=== PATIENT | female | born 1955 | race Caucasian/White ===

== ENCOUNTER 2018-07-31 07:51 | Day surgery (SDC) | payer BC ==
[2018-07-27 15:46] LABS: Absolute Lymphocytes (CBC) 2.1 K/uL (0.7-4.9); Absolute Monocytes 0.5 K/uL (0.1-1.3); Absolute Neutrophil 3.5 K/uL (1.8-8.0); Basophils % 0.5 % (0-1.3); Hematocrit 36.6 % (36.0-45.0); Lymphocytes % 33.4 % (15.3-44.8); MPV 8.6 fL (7.6-11.3); Monocytes % 8.7 % (3.3-12.3); RBC Red Blood Cell Count 4.27 M/uL (3.86-4.86)
[2018-07-27 15:55] LABS: Potassium 3.6 mmol/L (3.5-5.1)
[2018-07-27 15:56] LABS: ALT/SGPT 29 U/L (12-78); AST/SGOT 18 U/L (15-37); Albumin 3.6 g/dL (3.4-5.0); Alkaline Phosphatase 87 U/L (45-117); Amylase Level 93 U/L (25-115); Bilirubin Direct < 0.1 mg/dL (0-0.2); Bilirubin Total 0.3 mg/dL (0.2-1.0); Lipase 244 U/L (73-393); Protein, Total 7.8 g/dL (6.4-8.2)
--- NOTE | 2018-07-27 17:32 | RAD REPORT ---
EXAM DESCRIPTION: RAD - Chest Pa And Lat (2 Views) - 07/27/2018 3:38 pm CLINICAL HISTORY: preop Chest pain. COMPARISON: Chest Pa And Lat (2 Views) dated 10/01/2016; CHEST SINGLE VIEW dated 06/25/2014 FINDINGS: The lungs are clear. The heart is normal in size. No displaced fractures. IMPRESSION: No acute or concerning finding suspected.
--- OUTSIDE RECORDS SUMMARY | 2018-07-31 07:59 | XMS REPORT ---
:1955 [facility] Address [address] [place] [address] Dr. Pedroza [address] [place] [id number] Care Team Providers Name Role Phone Unavailable Unavailable Unavailable Problems This patient has no known problems. Allergies, Adverse Reactions, Alerts This patient has no known allergies or adverse reactions. Medications This patient has no known medications. Encounters Start End Encounter Admission Attending Care Care Encounter Date/Time Date/Time Type Type Clinicians Facility Department ID 2018-06-05 2018-06-05 Outpatient [facility] [id number] 15:37:00 15:37:00
--- OUTSIDE RECORDS SUMMARY | 2018-07-31 07:59 | XMS REPORT | Clinical Summary ---
:1955 Author Organization [facility] Address [address] [place] [address] Care Team Providers Name Role Phone Leo Lovelace MD Primary Care Provider Allergies Active Allergy Reactions Severity Noted Date Comments Amoxicillin Rash Low 09/29/2015 Moxifloxacin Rash Low 09/29/2015 Clarithromycin Rash Low 09/29/2015 Codeine Other (See Comments) 01/20/2016 Headaches Medications Medication Sig Dispensed Refills Start Date End Date Status VYVANSE 30 mg capsule Take by mouth 0 09/18/2015 Active daily. metolazone 1 ORAL EVERY 0 09/04/2015 Active (ZAROXOLYN) 5 MG DAY tablet propranolol (INDERAL) Take 20 mg by 3 07/30/2015 Active 20 MG tablet mouth once daily. venlafaxine XR Take by mouth 3 08/02/2015 Active (EFFEXOR-XR) 150 MG once daily. 24 hr capsule furosemide (LASIX) 40 Take 40 mg by 0 Active MG tablet mouth daily. UNABLE TO FIND Take 750 mg 0 Active by mouth daily. circumin 750 mg daily tuhtp-utnah-0-dha-epa Take 300 mg 0 Active -lipids (KRILL OIL) by mouth 739-15-78-50 mg daily. capsule cholecalciferol, Take 1,000 0 Active vitamin D3, (VITAMIN Units by D3) 1,000 unit mouth daily. capsule jkeqxmljvzv-L6-Ovrtub Take 1 tablet 0 Active kisha serr (OSTEO by mouth BI-FLEX, 5-LOXIN,) daily. 1,500-400-100 mg-unit-mg tablet aspirin (ECOTRIN) 81 Take 81 mg by 0 Active MG enteric coated mouth daily. tablet potassium chloride 20 TAKE 1 2 01/05/2016 Active mEq tablet extended TABLETS (40 release MEQ) BY MOUTH DAILY levothyroxine 1 TABLET ON 1 09/17/2016 Active (SYNTHROID, LEVOXYL) AN EMPTY 50 mcg tablet STOMACH IN THE MORNING ONCE A DAY ORALLY 3 DAYS methscopolamine Take 5 mg by 0 07/01/2016 Active (PAMINE FORTE) 5 MG mouth. Twice tablet a week CETIRIZINE HCL Take by mouth 0 Active (ZYRTEC ORAL) daily. methotrexate 2.5 MG TAKE 8 104 tablet 1 10/19/2017 Active tablet TABLETS BY 9 MOUTH A WEEK simvastatin (ZOCOR) Take 10 mg by 0 12/08/2017 Active 10 MG tablet mouth daily. ranitidine (ZANTAC) Take 150 mg 0 Active 150 MG tablet by mouth 2 (two) times a day. methotrexate 2.5 MG Take 8 pills 104 tablet 3 03/26/2016 Discontinued tablet a week 8 methotrexate 2.5 MG Take by mouth 0 Discontinued tablet once a week. 8 3 tablets weekly Active Problems Problem Noted Date Encounter for long-term (current) use of high-risk medication 01/20/2016 Elevated transaminase level 01/20/2016 Rheumatoid arthritis of multiple sites with negative rheumatoid factor 2015 Last Assessment & Plan: Although the level of activity appears quite low I can still detect some articular swelling particularly of the long PIP on the left hand and the index MCPs bilaterally. 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 If she does well at work over the first month or 6 weeks I think reducing the dose t o 5 mg weekly may be reasonable. She understands that she may flare. She worries about the methotrexate and its effect on her fatty liver. Laboratories will be obtained today to look for activity of disease and comorbidity of medication. I would like to see her back in 3 months time or when necessary. Hyperlipidemia CARVAJAL (nonalcoholic steatohepatitis) Encounters Date Type Specialty Care Team Description 05/29/2018 Orders Only Rheumatology Krystle Smith MA Rheumatoid arthritis of multiple sites with negative rheumatoid factor (HCC) (Primary Dx); Encounter for long-term (current) use of high-risk medication 01/17/2018 Office Visit Rheumatology Rodney Hernandez MD Rheumatoid arthritis of multiple sites with negative rheumatoid factor (HCC) (Primary Dx); Encounter for long-term (current) use of high-risk medication; Mixed hyperlipidemia; GERD without esophagitis; Vitamin D deficiency 12/19/2017 Telephone Rheumatology Krystle Smith MA 11/10/2017 Orders Only Rheumatology Rodney Hernandez MD Rheumatoid arthritis of multiple sites with negative rheumatoid factor (Primary Dx); Long-term use of high-risk medication 10/18/2017 Refill Rheumatology Rodney Hernandez MD after 07/30/2017 Family History Medical History Relation Name Comments Suicidality Father Hypertension Mother Osteoarthritis Mother No Known Problems Sister No Known Problems Sister Relation Name Status Comments Father Mother Alive Sister Alive Sister Alive Social History Tobacco Use Types Packs/Day Years Used Date Never Smoker Smokeless Tobacco: Never Used Alcohol Use Drinks/Week oz/Week Comments No Sex Assigned at Date Recorded Not on file Job Start Date Occupation Industry Not on file Not on file Not on file Travel History Travel Start Travel End No recent travel history available. Last Filed Vital Signs Vital Sign Reading Time Taken Blood Pressure 143/90 01/17/2018 10:36 AM [employer] Pulse 81 01/17/2018 10:36 AM [employer] Temperature 37.1 C (98.7 F) 01/17/2018 10:36 AM [employer] Respiratory Rate 18 01/17/2018 10:36 AM [employer] Oxygen Saturation 97% 01/17/2018 10:36 AM [employer] Inhaled Oxygen Concentration - - Weight 76.2 kg (168 lb) 01/17/2018 10:36 AM [employer] Height 165.1 cm (5' 5") 01/17/2018 10:36 AM [employer] Body Mass Index 27.96 01/17/2018 10:36 AM [employer] Plan of Treatment Date Type Specialty Care Team Description 09/15/2018 Office Visit Rheumatology Rodney Hernandez MD [address] [address] Health Maintenance Due Date Last Done Comments BREAST CANCER SCREENING 2007 COLON CANCER SCREENING 2007 SHINGLES VACCINES (#1) 2007 INFLUENZA VACCINE 09/28/2018 Procedures Procedure Name Priority Date/Time Associated Comments Diagnosis URINALYSIS, AUTOMATED Routine 05/30/2018 3:38 Encounter for Results for this WITH MICROSCOPY PM CDT long-term (current) procedure are in use of high-risk the results medication section. SEDIMENTATION RATE Routine 05/30/2018 3:38 Rheumatoid Results for this PM CDT arthritis of procedure are in multiple sites with the results negative rheumatoid section. factor (HCC) C-REACTIVE PROTEIN Routine 05/30/2018 3:38 Rheumatoid Results for this PM CDT arthritis of procedure are in multiple sites with the results negative rheumatoid section. factor (HCC) CBC WITH PLATELET AND Routine 05/30/2018 3:38 Encounter for Results for this DIFFERENTIAL PM CDT long-term (current) procedure are in use of high-risk the results medication section. COMPREHENSIVE Routine 05/30/2018 3:38 Encounter for Results for this METABOLIC PANEL PM CDT long-term (current) procedure are in use of high-risk the results medication section. URINALYSIS, AUTOMATED Routine 03/01/2018 12:26 Encounter for Results for this WITH MICROSCOPY PM [employer]OR [employer] long-term (current) procedure are in use of high-risk the results medication section. SEDIMENTATION RATE Routine 03/01/2018 12:26 Rheumatoid Results for this PM [employer] arthritis of procedure are in multiple sites with the results negative rheumatoid section. factor (HCC) C-REACTIVE PROTEIN Routine 03/01/2018 12:26 Rheumatoid Results for this PM [employer] arthritis of procedure are in multiple sites with the results negative rheumatoid section. factor (HCC) CBC WITH PLATELET AND Routine 03/01/2018 12:26 Encounter for Results for this DIFFERENTIAL PM [employer] long-term (current) procedure are in use of high-risk the results medication section. COMPREHENSIVE Routine 03/01/2018 12:26 Encounter for Results for this METABOLIC PANEL PM [employer]OR [employer] long-term (current) procedure are in use of high-risk the results medication section. URINALYSIS, AUTOMATED Routine 11/18/2017 1:57 Rheumatoid Results for this WITH MICROSCOPY PM CDT arthritis of procedure are in multiple sites with the results negative rheumatoid section. factor CBC WITH PLATELET AND Routine 11/18/2017 1:57 Long-term use of Results for this DIFFERENTIAL PM CDT high-risk procedure are in medication the results section. COMPREHENSIVE Routine 11/18/2017 1:57 Long-term use of Results for this METABOLIC PANEL PM CDT high-risk procedure are in medication the results section. C-REACTIVE PROTEIN Routine 11/18/2017 1:57 Long-term use of Results for this PM CDT high-risk procedure are in medication the results section. SEDIMENTATION RATE Routine 11/18/2017 1:57 Long-term use of Results for this PM CDT high-risk procedure are in medication the results section. after 07/30/2017 Results Urinalysis, automated with microscopy (05/30/2018 3:38 PM CDT)Only the most recent of3 resultswithin the time period is included. Color, UA YELLOW YELLOW [facility] [place] Appearance CLEAR CLEAR [facility] [place] Specific gravity, 1.009 1.001 - 1.035 [facility] urine [place] pH, urine 6.5 5.0 - 8.0 [facility] [place] Glucose, urine NEGATIVE NEGATIVE [facility] [place] Bilirubin, UA NEGATIVE NEGATIVE [facility] [place] Ketones, UA NEGATIVE NEGATIVE [facility] [place] Occult blood, urine NEGATIVE NEGATIVE [facility] [place] Protein, UA NEGATIVE NEGATIVE [facility] [place] Nitrite, UA NEGATIVE NEGATIVE [facility] [place] Leukocyte esterase, 1+ (A) NEGATIVE [facility] UA [place] WBC, UA 0-5 < OR=5 /HPF [facility] [place] RBC, UA NONE SEEN < OR=2 /HPF [facility] [place] Squamous epithelial NONE SEEN < OR=5 /HPF [facility] cells, UA [place] Bacteria, UA NONE SEEN NONE SEEN /HPF [facility] [place] Hyaline casts, UA NONE SEEN NONE SEEN /LPF [facility] [place] Specimen Urine Narrative Performed At FASTING:NO [facility] FASTING: NO Resulting Agency Comment Performing Organization Information: Site ID: [facility] Name: [facility] Address: [address] [place] [phone] Director: Cristina Sampson Performing Organization Address [facility] Phone Number [facility] [place] [phone] Sedimentation rate (05/30/2018 3:38 PM CDT)Only the most recent of3 resultswithin the time period is included. Sedimentation rate 28 < OR=30 mm/h [facility] [place] Specimen Blood Narrative Performed At FASTING:NO [facility] FASTING: NO Resulting Agency Comment Performing Organization Information: Site ID: [facility] Name: [facility] Address: [address] [place] [phone] Director: Cristina Sampson Performing Organization Address [facility] Phone Number [facility] [place] [phone] CBC with platelet and differential (05/30/2018 3:38 PM CDT)Only the most recent of3 resultswithin the time period is included. Pathologist [facility] WBC 8.3 3.8 - 10.8 [facility] Thousand/uL [place] RBC 4.22 3.80 - 5.10 [facility] Million/uL [place] HGB 12.6 11.7 - 15.5 [facility] g/dL [place] HCT 36.8 35.0 - 45.0 % [facility] [place] MCV 87.2 80.0 - 100.0 fL [facility] [place] MCH 29.9 27.0 - 33.0 pg [facility] [place] MCHC 34.2 32.0 - 36.0 [facility] g/dL [place] RDW 12.7 11.0 - 15.0 % [facility] [place] Platelet count 210 140 - 400 [facility] Thousand/uL [place] MPV 11.0 7.5 - 12.5 fL [facility] [place] Neutrophils, absolute 5,378 1,500 - 7,800 [facility] cells/uL [place] Lymphocytes, absolute 2,150 850 - 3,900 [facility] cells/uL [place] Monocytes, absolute 639 200 - 950 [facility] cells/uL [place] Eosinophils, absolute 100 15 - 500 [facility] cells/uL [place] Basophils, absolute 33 0 - 200 [facility] cells/uL [place] Neutrophils 64.8 % [facility] [place] Lymphocytes 25.9 % [facility] [place] Monocytes 7.7 % [facility] [place] Eosinophils 1.2 % [facility] [place] Basophils + RC 0.4 % [facility] [place] Specimen Blood Narrative Performed At FASTING:NO [facility] FASTING: NO Resulting Agency Comment Performing Organization Information: Site ID: [facility] Name: [facility] Address: [address] [place] [phone] Director: Cristina Sampson Performing Organization Address City/State/Zipcode Phone Number [facility] [place] [phone] C-reactive protein (05/30/2018 3:38 PM CDT)Only the most recent of3 resultswithin the time period is included. [facility] CRP 5.8 <8.0 mg/L [facility] [place] Specimen Blood Narrative Performed At FASTING:NO [facility] FASTING: NO Resulting Agency Comment Performing Organization Information: Site ID: [facility] Name: [facility] Address: [address] [place] [phone] Director: Cristina Sampson Performing Organization Address City/[facility] Phone Number [facility] [place] [address] [place] [phone] Comprehensive metabolic panel (05/30/2018 3:38 PM CDT)Only the most recent of3 resultswithin the time period is included. Glucose 97 65 - 139 [facility] Comment: mg/dL [place] Non-fasting reference interval BUN, whole blood 19 7 - 25 mg/dL [facility] [place] Creatinine 0.98 0.50 - 0.99 [facility] Comment: mg/dL [place] For patients >49 years of age, the reference limit for Creatinine is approximately 13% higher for people identified as -Citizen Of [place]. EGFR Non-Afr. 62 > OR=60 [facility] Citizen [place] mL/min/1.73m [place] 2 EGFR 72 > OR=60 [facility] Citizen [place] mL/min/1.73m [place] 2 BUN/creatinine NOT APPLICABLE 6 - 22 [facility] ratio (calc) [place] Sodium 139 135 - 146 [facility] mmol/L [place] Potassium 3.5 3.5 - 5.3 [facility] mmol/L [place] Chloride 95 (L) 98 - 110 [facility] mmol/L [place] CO2 34 (H) 20 - 32 [facility] mmol/L [place] Calcium 9.7 8.6 - 10.4 [facility] mg/dL [place] Protein 7.2 6.1 - 8.1 [facility] g/dL [place] Albumin, S 4.1 3.6 - 5.1 [facility] g/dL [place] Globulin, total 3.1 1.9 - 3.7 [facility] g/dL (calc) [place] Albumin/globulin 1.3 1.0 - 2.5 [facility] ratio (calc) [place] Total bilirubin 0.3 0.2 - 1.2 [facility] mg/dL [place] Alkaline 86 33 - 130 U/L [facility] phosphatase [place] AST 24 10 - 35 U/L [facility] [place] ALT 30 (H) 6 - 29 U/L [facility] [place] Specimen Blood Narrative Performed At FASTING:NO [facility] FASTING: NO Resulting Agency Comment Performing Organization Information: Site ID: [facility] Name: [facility] Address: [address] [place] [phone] Director: Cristina Sampson Performing Organization Address City/[facility]/Zipcode Phone Number [facility] [address] [address] after 07/30/2017 Advance Directives Patient has advance care planning documents on file. For more information, please contact:Gamaliel Villegas[address] [place] [address]
[2018-07-31] MEDS ORDERED: PROPOFOL 200 MG/20 ML VIAL IV ONE (08:43)
[2018-07-31] MEDS ORDERED: MIDAZOLAM HCL 2 MG/2 ML INJ ONE (08:43)
[2018-07-31] MEDS ORDERED: ROCURONIUM 50 MG/5 ML VIAL IV ONE (08:43)
[2018-07-31] MEDS ORDERED: LIDOCAINE 1% MPF 5 ML VIAL ONE ×2 (08:43)
[2018-07-31] MEDS ORDERED: FENTANYL CITR 100 MCG/2 ML ONE ×2 (08:43→10:05)
[2018-07-31] MEDS ORDERED: Ringers Lactate 1,000 ML IV ONE (08:54)
[2018-07-31] MEDS ORDERED: CEFOXITIN/SWI 1gm 1 GM/10 ML SYR ONE (09:04)
[2018-07-31] MEDS ORDERED: DEXAMETHASONE 10 MG/ML VIAL ONE (09:50)
[2018-07-31] MEDS ORDERED: ONDANSETRON 4 MG/2 ML VIAL ONE (10:03)
--- NOTE | 2018-07-31 10:04 | P.BOP ---
Preoperative diagnosis: RUQ abd pain, acute cholecytistis, symptomatic cholelithiasis Postoperative diagnosis: same Primary procedure: Laparoscopic cholecystectomy Stain Applicator: RANDAL ESCOBEDO (FISHERMAN HELPER) Estimated blood loss: <10cc Specimen: gb Findings: as above Anesthesia: General Complications: None Transferred to: Recovery Room Condition: Good
[2018-07-31] MEDS ORDERED: GLYCOPYRROLATE 0.2 MG/ML SYR ONE (10:07)
[2018-07-31] MEDS ORDERED: KETOROLAC 30 MG/ML INJ ONE (10:07)
[2018-07-31] MEDS ORDERED: NEOSTIGMINE 1 MG/ML -10 ML VIAL ONE (10:14)
--- NOTE | 2018-07-31 20:39 | OP ---
Date of Procedure: 07/31/2018 Surgeon: Leonardo John MD Business Development Agent: WIL Townsend. Preoperative Diagnoses: Right upper quadrant pain, symptomatic cholelithiasis, acute cholecystitis. Postoperative Diagnoses: Right upper quadrant pain, symptomatic cholelithiasis, acute cholecystitis. Procedure: Laparoscopic cholecystectomy. Estimated Blood Loss: Less than 10 cc. Specimen: Gallbladder. Indications: This is a case of 63-year-old patient comes to us with persistent right upper quadrant pain postprandial diagnosed with acute cholecystitis, tiny stones in the form of sludge and then also persistent right upper quadrant pain. The patient diagnosed, fully explained the benefits, alternat yandy and risks of laparoscopic, possible open cholecystectomy, which include, but not limited to infe ction, bleeding, damage to adjacent structures, anesthesia complication, choledocholithiasis, bile le ak, pancreatitis, CA, and even . She also understands this may not relieve her symptoms. She m ight need more than one surgical intervention. She understood, signed a consent. Description Of Procedure: The patient was brought to the operating room, placed in supine position. Anesthesia was done without complication. Abdominal area was prepped and draped in usual sterile fa shion. Marcaine 0.5% was injected for local anesthetic, followed by sharp incision of the skin in th e infraumbilical region. Incision was carried down to fascia, which was opened under direct vision. Peritoneum was encountered, opened under direct vision. Vicryl #1 placed to saw the fascia. Juan trocar was carefully introduced. Pneumoperitoneum was obtained. I placed 2 more trocars, 5 mm each one of them, in the right upper quadrant under direct visualization. A grasper was placed in the fu ndus of the gallbladder, another grasper in the infundibulum. The gallbladder was retracted in the i nferolateral fashion exposing the triangle of Calot, obtaining critical view of safety. Cystic duct and cystic artery were clearly isolated, free circumferentially and a connection between those and th e gallbladder were clearly identified. I proceeded to ligate those by using at least 3 clips proxima l, 1 clip distal, ligation in middle. Same was done with the cystic artery. No bile leak. No bleed ing. The gallbladder was removed from liver using Bovie cauterizer and removed from abdominal cavity using an EndoCatch through the umbilical incision. The area was inspected once again. No bile leak . No bleeding. Then, we once again incision was closed with 3-0 #1 Vicryl. Irrigated subcu tissue, closed that with 3-0 chromic and skin in a subcuticular fashion with 3-0 chromic. Sponge count and i nstrument counts were correct. The patient tolerated the procedure well. The patient was sent to re covery room in stable condition. DISCHARGE SUMMARY Diagnoses: Acute cholecystitis, symptomatic cholelithiasis, right upper quadrant pain. Procedure: Laparoscopic cholecystectomy. Disposition: Home. Activity: As tolerated. No heavy lifting. Followup: Follow up in my office in 1 week. Call for appointment [phone]. Keep area dry for 48 ho urs, then may shower. Keep Steri-Strips intact. Medications: Include Bactrim DS p.o. b.i.d. and Ultracet q.4 hours p.r.n. pain. MICHAEL/EVARISTO Voice ID: [id number] Report ID: [id number]
== END 2018-07-31 11:35 | disposition home or self-care (01) ==
LOC: OR 07:51
PROVIDERS: ATTEND Surgery
PROC: 0FT44ZZ Resection of Gallbladder, Percutaneous Endoscopic Approach (ICD-10-PCS; principal; 2018-07-31 09:45)
DX: K80.12 Calculus of gallbladder with acute and chronic cholecystitis without obstruction (principal); I10 Essential (primary) hypertension; K21.9 Gastro-esophageal reflux disease without esophagitis; E07.9 Disorder of thyroid, unspecified; Z88.0 Allergy status to penicillin; Z88.3 Allergy status to other anti-infective agents; Z88.6 Allergy status to analgesic agent; Z82.49 Family history of ischemic heart disease and other diseases of the circulatory system
CPT/HCPCS: 36415; 71046; 80048; 80076; 82150; 83690; 85025; 88304; J1100; J2250; J2405; J2704; J2710; J3010

== ENCOUNTER → 2022-01-27 | Day surgery (SDC) | payer OTHER ==
--- NOTE | 2022-01-27 11:27 | RAD REPORT ---
EXAM DESCRIPTION: US - Guided FNA Non Breast - 01/27/2022 10:29 am CLINICAL HISTORY: Thyroid nodule ICD E04.1 COMPARISON: December 29, 2021 ultrasound TECHNIQUE: Risks, benefits and alternatives of procedure explained to the patient and informed conse nt obtained. Skin and subcutaneous tissues anesthetized with lidocaine. Under sonographic guidance, five 25 gauge needle passes were obtained into the dominant nodule within the left lobe of the thyroid gland. Specimens given to pathology. Patient experienced no immediate complication IMPRESSION: Fine-needle aspiration of a dominant nodule within left lobe of thyroid gland
== END ==
LOC: FNA 08:00
PROVIDERS: ATTEND Nurse Practitioner Family
PROC: 0GBG3ZX Excision of Left Thyroid Gland Lobe, Percutaneous Approach, Diagnostic (ICD-10-PCS; principal; 2022-01-27)
DX: E04.1 Nontoxic single thyroid nodule (principal)
CPT/HCPCS: 88162; 88305

== ENCOUNTER 2022-03-13 12:46 | Observation (INO) | payer OTHER ==
--- OUTSIDE RECORDS SUMMARY | 2022-03-13 12:50 | XMS REPORT | Clinical Summary ---
:1955 Author Organization [facility] Address [address] [place] [address] Care Team Providers Name Role Phone Flora Alonzo MD Primary Care Provider Sylvia Serrano MD Primary Care Provider Allergies Active Allergy Reactions Severity Noted Date Comments Codeine GI Intolerance, Other (See 01/20/2016 H urbandamarty Comments) Headaches Penicillins 02/05/2022 Medications Medication Sig Dispensed Refills Start Date End Date Status furosemide (LASIX) 40 Take 1 tablet (40 0 01/14/2022 Active mg tablet mg) by mouth daily. esomeprazole magnesium Take 1 tablet by 0 Active 20 mg TbEC mouth daily. simvastatin (ZOCOR) 10 Take 1 tablet (10 0 2 Active mg tablet mg) by mouth daily. propranolol (INDERAL) Take 1 tablet (20 0 07/30/2015 Active 20 mg tablet mg) by mouth daily. potassium chloride Take 1 tablet (20 0 Active (K-DUR,KLOR-CON M) 20 mEq) by mouth mEq tablet daily. Vyvanse 20 mg capsule Take 1 capsule 0 01/18/2022 Active (20 mg) by mouth daily. Linzess 145 mcg capsule Take 1 capsule 0 01/19/2022 Active (145 mcg) by mouth daily. Active Problems Problem Noted Date Thyroid nodule Encounters Date Type Specialty Care Team Description 02/11/2022 Telephone Endocrinology Naye Don FNP 02/09/2022 Telephone Endocrinology Quan Muhammad RN 02/05/2022 Ancillary Radiology Sylvia Serrano Cancer Procedure MD Theresa 02/05/2022 Hospital Lab Flora Alonzo Thyroid nodu le Encounter MD Dave 02/05/2022 Hospital Lab Sylvia Serrano Thyroid nod ulaki; Encounter MD Theresa Autoimmune hypo thyroidism 02/05/2022 Ancillary Radiology Flora Alonzo Thyroid nodu le Procedure MD Dave 02/05/2022 Office Visit Endocrinology Flora Alonzo Thyroid nod aditi (Primary Dx); MD Dave Autoimmune hypothyroidism Sylvia Serrano MD 02/05/2022 Travel 02/03/2022 NPR Patient Access Sylvia Serrano Services MD Theresa 01/15/2022 Orders Only Endocrinology Flora Alonzo Thyroid nod aditi Acosta MD (Primary Dx) after 03/13/2021 Surgical History Surgery Date Site/Laterality Comments HYSTERECTOMY 02/28/2011 - 02/28/2012 CHOLECYSTECTOMY 02/28/2018 - 02/27/2019 Medical History Medical History Date Comments Hypothyroidism Social History Tobacco Use Types Packs/Day Years Used Date Smoking Tobacco: Never Smokeless Tobacco: Never Tobacco Cessation: Counseling Given: Not Answered Alcohol Use Standard Drinks/Week Comments Never 0 (1 standard drink = 0.6 oz pure alcoho l) Sex Assigned at Date Recorded Female 01/04/2022 5:27 PM [employer] Job Start Date Occupation Industry Not on file Not on file Not on file Obstetrics History Last Filed Vital Signs Vital Sign Reading Time Taken Comments Blood Pressure 125/71 02/05/2022 10:45 AM [employer] Pulse 63 02/05/2022 10:45 AM [employer] Temperature 36.9 C (98.4 F) 02/05/2022 8:22 AM [employer] Respiratory Rate 17 02/05/2022 10:45 AM [employer]ER Oxygen Saturation 92% 02/05/2022 10:15 AM [employer] Inhaled Oxygen Concentration - - Weight 84 kg (185 lb 3 oz) 02/05/2022 8:22 AM [employer] Height 164.6 cm (5' 4.8") 02/05/2022 8:22 AM [employer] Body Mass Index 31 02/05/2022 8:22 AM [employer] Plan of Treatment Date Type Specialty Care Team Description 03/16/2022 Consult Endocrinology Head and Neck Luisito Nobles MD [address] [place], [place] [address] (Wo rk) Health Maintenance Due Date Last Done Comments COVID-19 Vaccination (2 - Booster for Alan series) 07/04/2020 05/09/2020 Procedures Procedure Name Priority Date/Time Associated Diagnosis Comme nts US FINE NEEDLE Routine 02/05/2022 11:45 Thyroid nodule Results for this ASPIRATION AM [employer] procedure are i n the results section. US HEAD NECK SOFT Routine 02/05/2022 11:45 Thyroid nodule Resu lts for this TISSUE AM [employer] procedure are i n the results section. FREE THYROXINE Routine 02/05/2022 11:43 Thyroid nodule Results for this AM [employer] procedure are i n the results section. THYROID STIMULATING Routine 02/05/2022 11:43 Thyroid nodule Re sults for this HORMONE AM [employer] procedure are i n the results section. HEPATITIS C VIRUS Routine 02/05/2022 11:43 Thyroid nodule Resu lts for this ANTIBODY AM [employer] procedure are i n the results section. THYROID PEROXIDASE Routine 02/05/2022 11:43 Thyroid nodu le Results for this ANTIBODY AM [employer] Autoimmune procedure are i n hypothyroidism the results section. CYTOLOGY IMAGE-GUIDED Routine 02/05/2022 10:19 Thyroid nodule Results for this FNA INTERPRETATION AM [employer] procedure are in the results section. OSI US THYROID Routine 12/29/2021 11:52 Cancer Results f or this AM CDT procedure are i n the results section. after 03/13/2021 Results US Fine Needle Aspiration (02/05/2022 11:45 AM [employer]ER) Anatomical Region Laterality Modality Ultrasound Specimen (Source) Anatomical Collection Method Collection Time Re ceived Time Location / / Volume Laterality 02/05/2022 2:43 PM [employer] Impressions 02/05/2022 2:47 PM [employer] Percutaneous ultrasound-guided fine need le aspiration of a 1.6 cm left superior thyroid nodule. Narrative 02/05/2022 2:47 PM [employer] FULL RESULT: Examination: US FINE NEEDLE ASPIRATION, 02/05/2022 11:45 AM Clinical History: Thyroid nodule Indication: Fine-needle aspiration of 1. 6 cm left superior thyroid nodule Comparison: Ultrasound examination thyro id and neck 02/05/2022 Technique: Grayscale and color Doppler ultrasound of the thyroid and neck was performed. Subsequently, an ultrasound-guided FNA was performed, as described in detail below. Findings: The procedure and associated risks, bene fits, and alternatives were explained in detail to the patient, who agreed to proceed and signed an informed consent form. All questions were answered. A timeout was performed verifying the correct proc edure, correct name and correct site. The skin was prepped in the usual sterile fashion with alcohol. Lidocaine 1 percent was administered for local anesthesia . Under direct sonographic guidance, the fine needle aspiration was performed using a 20-gauge needle and 1 pass was made. Preprocedure Diagnosis: 1) left superior thyroid nodule Postprocedure Diagnosis: 1) indeterminat e follicular lesion, favor benign Preliminary cytology results were negati ve for malignancy and final results are pending. Estimated Blood Loss: Negligible. Immediate Complications: There were no i mmediate complications, and the patient was discharged in good condition. Procedure Note Josh Olea MD - 02/05/2022 FULL RESULT: Examination: US FINE NEEDLE ASPIRATION, 02/05/2022 11:45 AM Clinical History: Thyroid nodule Indication: Fine-needle aspiration of 1. 6 cm left superior thyroid nodule Comparison: Ultrasound examination thyro id and neck 02/05/2022 Technique: Grayscale and color Doppler u ltrasound of the thyroid and neck was performed. Subsequently, an ultrasound-guided FNA was performed, as described in detail below. Findings: The procedure and associated risks, bene fits, and alternatives were explained in detail to the patient, who agreed to proceed and signed an informed consent form. All questions were answered. A timeout was performed verifying the correct procedur e, correct name and correct site. The skin was prepped in the usual sterile fashion with alcohol. Lidocaine 1 percent was administered for local anesthesia . Under direct sonographic guidance, the fine needle aspiration was performed using a 20-gauge needle and 1 pass was made. Preprocedure Diagnosis: 1) left superior thyroid nodule Postprocedure Diagnosis: 1) indeterminat e follicular lesion, favor benign Preliminary cytology results were negati ve for malignancy and final results are pending. Estimated Blood Loss: Negligible. Immediate Complications: There were no i mmediate complications, and the patient was discharged in good condition. IMPRESSION: Percutaneous ultrasound-guided fine need le aspiration of a 1.6 cm left superior thyroid nodule. Flora Alonzo MD IMG US ORDERABLES US HEAD NECK SOFT TISSUE (02/05/2022 11:45 AM [employer]) Anatomical Region Laterality Modality Head, Neck Ultrasound Specimen (Source) Anatomical Collection Method Collection Time Re ceived Time Location / / Volume Laterality 02/05/2022 2:37 PM [employer] Impressions 02/05/2022 2:47 PM [employer] 1. Status post FNA of the 1.6 cm left murphy perior thyroid nodule with final cytology interpreted as an indeterminate follicular lesion, favor benign. 2. No adenopathy. Narrative 02/05/2022 2:47 PM [employer] FULL RESULT: Ultrasound soft tissue neck and thyroid, 02/05/2022 Clinical history: Thyroid nodule Indication: Mass, Other:, Thyroid nodule . Comparison: No prior studies available f or comparison Technique: Ultrasound examination soft t issue neck and thyroid Findings: The right lobe measures approx imately 4 x 1.4 x 1.2 cm. No suspicious nodules or calcifications are present. The isthmus measures approximately 1.2 c m in AP diameter. The left lobe measures approximately 4.6 x 1.2 x 1.1 cm. The superior pole is an isoechoic 1.6 x 1.1 x 0.8 cm nodule with minimal vascularity and no calcification. A 0.7 x 0.6 x 0.4 cm avascular nodule without calcification inferior to the le ft lower pole likely represents a benign node. No worrisome delphian or suprasternal no edenilson are present. There is no suspicious anterior jugular territory adenopathy. Procedure Note Josh Olea MD - 02/05/2022 FULL RESULT: Ultrasound soft tissue neck and thyroid, 02/05/2022 Clinical history: Thyroid nodule Indication: Mass, Other:, Thyroid nodule . Comparison: No prior studies available f or comparison Technique: Ultrasound examination soft t issue neck and thyroid Findings: The right lobe measures approx imately 4 x 1.4 x 1.2 cm. No suspicious nodules or calcifications are present. The isthmus measures approximately 1.2 c m in AP diameter. The left lobe measures approximately 4.6 x 1.2 x 1.1 cm. The superior pole is an isoechoic 1.6 x 1.1 x 0.8 cm nodule with minimal vascularity and no calcification. A 0.7 x 0.6 x 0.4 cm avascular nodule without calcification inferior to the left lower pole likely r epresents a benign node. No worrisome delphian or suprasternal no edenilson are present. There is no suspicious anterior jugular territory adenopathy. IMPRESSION: 1. Status post FNA of the 1.6 cm left murphy perior thyroid nodule with final cytology interpreted as an indeterminate follicular lesion, favor benign. 2. No adenopathy. Flora Alonzo MD IMG US ORDERABLES Hepatitis C Virus Ab (02/05/2022 11:43 AM SEED [employer]ER) Patholo gist Method Time Signature HCVAb. Non Reactive Non Reactive [facility] Comment: Antibody detection in the immunocompromi sed and immunosuppressed population may be delayed or absent entirely. Therefore serial testing, correlation with other clinical findings, and supplemental testin g (if available) should be taken into co nsideration when interpreting the results. Specimen Anatomical Collection Method Collection Time Receive d Time (Source) Location / / Volume Laterality Blood 02/05/2022 11:43 02/05/2022 AM [employer]ER 12:31 PM [employer] Flora Alonzo MD LAB BLOOD ORDERABLES Performing Organization Address City/State/ZIP Code Phon e Number [facility] CANCER Unless otherwise noted, [address] all lab tests performed by: Division of Pathology and Laboratory Medicine [facility] Thyroid Peroxidase Ab (02/05/2022 11:43 AM SEED [employer]ER) P athologist Signature TPO AB 3.3 <=8.9 IU/mL [facility] Comment: Due to varying antigen specific ity, affinity and avidity of capture and conjugate antibodies in their epitope re actions, some TPO antibody samples may not dilute linearly when results exceed 750 IU/mL. Specimen Anatomical Collection Method Collection Time Receive d Time (Source) Location / / Volume Laterality Blood 02/05/2022 11:43 02/05/2022 AM [employer]ER 12:22 PM [employer]ER Sylvia Serrano MD LAB BLOOD ORDERABLES Performing Organization Address City/State/ZIP Code Phon e Number [facility] CANCER Unless otherwise noted, [address] all lab tests performed by: Division of Pathology and Laboratory Medicine [address] TSH (02/05/2022 11:43 AM SE[employer]) athologist Signature TSH 1.77 0.27 - 4.20 [facility] mcunit/mL DIAGNOSTIC CENTER Specimen Anatomical Collection Method Collection Time Receive d Time (Source) Location / / Volume Laterality Blood 02/05/2022 11:43 02/05/2022 AM [employer]ER 11:52 AM [employer]ED [employer]ER Flora Alonzo MD LAB BLOOD ORDERABLES Performing Organization Address City/[facility]/ZIP [facility] Phon e Number [facility] DIAGNOSTIC Unless otherwise noted, [address] all lab tests performed by: Division of Pathology and Laboratory Medicine [address] [place] [address] Free T4 (02/05/2022 11:43 AM SEED [employer]) athologist Signature T4 Free 1.18 0.93 - 1.70 [facility] ng/dL DIAGNOSTIC CENTER Specimen Anatomical Collection Method Collection Time Receive d Time (Source) Location / / Volume Laterality Blood 02/05/2022 11:43 02/05/2022 AM SE[employer]ER 11:52 AM [employer]ER Flora Alonzo MD LAB BLOOD ORDERABLES Performing Organization Address City/[facility] Phon e Number [facility] DIAGNOSTIC Unless otherwise noted, [address] all lab tests performed by: Division of Pathology and Laboratory Medicine [address] [place] [address] Cytology Image-Guided FNA Interpretation (02/05/2022 10:19 AM SEED [employer]ER) Component Value Ref Test Analysis Performed Pathologis t Range Method Time At [facility] Gross Specimens procured: 02/05/2022 [facility] BS Description 1 Diff Quik; 4 Pap Stain Slides 1:29 P M 10 ml, slightly cloudy bloody fluid in RPMI [employer] 1 Cytospin Size: 1.6 x 1.1 x 0.8 cm Immediate assessment for specimen adequacy was made x1 by Dr Nathan Dhaliwal. Immediate Adequate 02/05/2022 [facility] Assessment cellularity, 1:29 PM favor benign [employer] Major [facility]/benign 02/05/2022 [facility] Elect ronically Classification 1:29 PM sushant d by Caren Dhaliwal MD on 02/05/2022 at 1:29 PM Diagnosis 02/05/2022 [facility] Electro nically Thyroid, left superior lobe, fine needle aspiration: 1:29 PM signed by Caren Dhaliwal MD on Indeterminate follicular les ion (low cellularity/minimal to no colloid), favor benign 02/05/2022 at 1:29 PM Comment The aspirate 02/05/2022 [facility] obtained is 1:29 PM sparse possessing [employer]ER few follicular epithelial cells without nuclear atypia. It does not display the abundant colloid of a colloid nodule or the increased cellularity of a follicular lesion/neoplasm. Consequently, this sampling does not permit rendering a more definitive diagnosis. Retained/Biomark SR: 6 S 02/05/2022 [facility] er Testing 1:29 PM SEED [employer]ER Informational Some tests 02/05/2022 [facility] Points reported here may 1:29 PM have been [employer]ER developed and performance characteristics determined by [facility]. These tests have not been specifically cleared or approved by the U.S. Food and Drug Administration. Specimen Anatomical Collection Method Collection Time Receive d Time (Source) Location / / Volume Laterality Fine Needle Asp 02/05/2022 10:19 02/06/20 22 (Thyroid, Left AM [employer]ED [employer]ER 10:47 AM SEED TR[employer]ER Lobe) Flora Alonzo MD LAB CYTOLOGY ORDERABLES Performing Organization Address City/State/ZIP Code Phon e Number [facility] [place] [address] [address] [facility] Thyroid (12/29/2021 11:52 AM CDT) Specimen (Source) Anatomical Location Collection Method / Collectio n Time Received Time / Laterality Volume Narrative Systemgenerated, Documentation - 022 11:52 AM SEED [employer]ER Study acquired at another institution. For comparison only. No MD Wright originated interpretation requested or a vailable. Sylvia Serrano MD IMG OUTSIDE IMAGE ORDERABLES after 03/13/2021 Insurance Payer Benefit Plan / Subscriber ID Effective Dates Phone Addre ss Type Group UNITED UNITED [id number] 2021-Presen [address] [facility] [place] [address] Care Teams Policy Writer Sales Relationship Specialty Start Date End Date Flora Alonzo MD PCP - General Endocrinology 01/07/22 01/26/[address] [place] [id number] Sylvia Serrano MD PCP - General Endocrinology 01/27/22 [facility] [place] [address]
--- OUTSIDE RECORDS SUMMARY | 2022-03-13 12:54 | XMS REPORT | Continuity of Care Document ---
:1955 Author Organization [facility] t Address [address] [place] [address] Care Team Providers Name Role Phone [phone] Primary Care Physician Unavailable SYSTEM, PROVIDER NOT IN Attending Clinician Unavailable FELIX ZULETA Attending Clinician Unavailable CELINA NAIR Attending Clinician Unavailable BAYRON FONTANA Attending Clinician Unavailable BAYRON FONTANA Attending Clinician Unavailable ANGELICA VIVEROS III Attending Clinician Unavailable Doctor Unassigned, [place] Attending Clinician Unavailable Naye Boucher Attending Clinician Quan Muhammad RN Attending Clinician Unavailable FLORA ALONZO Attending Clinician Unavailable Flora Alonzo MD Attending Clinician Sylvia Serrano MD Attending Clinician SYLVIA SERRANO Attending Clinician Unavailable MUKUND ISLAS Attending Clinician Unavailable Felxi Zuleta MD Attending Clinician Leo Lovelace Attending Clinician Radha Mckeon RN Attending Clinician Unavailable Only, Ang Db Test Attending Clinician Unavailable Zuleyma Nguyen Attending Clinician ZULEYMA BEAR Attending Clinician Unavailable UNKNOWN, ATTENDING Attending Clinician Unavailable Team, [facility] Attending Clinician UnavailCAMRON Parkinson Attending Clinician Unavailable NICHELLE KOEHLER Attending Clinician Unavailable LYLE BUCIO Attending Clinician Unavailable Ede Bentley Attending Clinician EDE BENTLEY Attending Clinician Unavailable Camron Scott Attending Clinician Ruddy Buck Attending Clinician Ede Bentley Admitting Clinician EDE BENTLEY Admitting Clinician Unavailable Payers Payer Name Policy Type Policy Number Effective Date Expiration Date S lj [place] [id number] 2021 HEALTHCARE PPO 00:00:00 BCBS OF [id number] 2010 Julian o f [employer]ON[employer] OF 00:00:00 [id number] [facility] [id number], [place] [address]SFY/POS Problems Condition Condition Condition Status Onset Resolution Last Treating Co mments Source Name Details Category Date Date Treatment Clinician Date Hiatal Hiatal Disease Active 2021-02 Univers hernia hernia - ity of 00:00: [address] Prediabete Prediabete Disease Active 2021-02 U nivers s s 03-20 ity of 00:00: [address] LEFT KNEE LEFT KNEE Diagnosis Active 2019-08-24 Memoria PAIN PAIN 08-23 11:42:00 l Active 00:00: Mark 08/24/2019 00 [facility] M17.12 - M17.12 - Diagnosis Active 2018-11-02 Memoria LEFT KNEE LEFT KNEE 08-03 11:26:00 l OSTEOARTHR OSTEOARTHR 00:00: Jean Paul BURGOSIS ITIS 00 Active 08/03/2018 [facility] RIGHT KNEE RIGHT Diagnosis Active 2018-06-05 Memoria PAIN KNEE PAIN - 15:49:00 l Active 00:00: Mark 06/05/2018 00 [facility] Elevated Elevated Disease Active 2015-02 Metho di transamina transamina 03-21 st se level se level 00:00: Hospit a 00 l Rheumatoid Rheumatoid Disease Recurre Last Methodi arthritis arthritis nce 09-28 Assessmen s t of of 00:00: t & Plan: Hospita multiple multiple 00 Formattin l sites with sites with g of this negative negative note rheumatoid rheumatoid might be factor factor different from the original. Although the level of activity appears quite low I can still detect some articular swelling particula rly of the long PIP on the left hand and the index MCPs bilateral ly. 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 If she does well at work over the first month or 6 weeks I think reducing the dose to 5 mg weekly may be reasonabl e. She understan ds that she may flare. She worries about the methotrex ate and its effect on her fatty liver.Lab oratories will be obtained today to look for activity of disease and comorbidi ty of medicatio n.I would like to see her back in 3 months time or when necessary . Rheumatoid Rheumatoid Disease Active Overview : Univers arthritis arthritis 11-05 Formattin i ty of 00:00: g of this [place] 00 note Medical might be Branch different from the original. 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 ICD10 Diagnosis Term Image Scientist Utility Essential Essential Problem Active 2019-08-26 Memoria tremor tremor 22:41:42 l (disorder) (disorder) He rmann Active Problem 08/26/2019 [facility] Hyperlipid Hyperlipi Problem [facility] 2019-08-26 [facility] 22:41:42 l (disorder) (disorder) He rmann Active Problem 08/26/2019 [facility] Hypertensi Hypertens Problem Active 2019-08-26 Memoria ve louise 22:41:42 l disorder, disorder, Herm heraclio systemic systemic arterial arterial (disorder) (disorder) Active Problem 08/26/[address] [facility] Tremor Tremor Problem Active 2019-08-26 Chivo netta (finding) (finding) 22:41:42 l Active [place] Problem 08/26/[address] [facility] Mixed Mixed Disease Recurre Methodi hyperlipid hyperlipid nce st emia emia Hospita l CARVAJAL CARVAJAL Disease Recurre Methodi (nonalcoho (nonalcoho nce st lic lic Hospita steatohepa steatohepa l titis) titis) Thyroid Thyroid Disease Active Univers nodule nodule it of [place] [facility] Allergies, Adverse Reactions, Alerts Allergy Allergy Status Severity Reaction(s) Onset Inactive Treating Comm ents Source Name Type Date Date Clinician PENICILL Drug Active 2021-02 MD INS Class 2-09 Anderso 00:00: n 00 PENICILL Drug Active 2021-02 MD INS Class 2-09 Anderso 00:00: n 00 PENICILL Drug Active 2021-02 MD INS Class 2-09 Anderso 00:00: n 00 PENICILL Drug Active 2021-02 MD INS Class 2-09 Anderso 00:00: n 00 PENICILL Drug Active 2021-02 MD INS Class 2-09 Anderso 00:00: n 00 PENICILL Drug Active 2021-02 MD INS Class 2-09 Anderso 00:00: n 00 PENICILL Drug Active 2021-02 MD INS Class 2-09 Anderso 00:00: n 00 PENICILL Drug Active 2021-02 MD INS Class 2-09 Anderso 00:00: n 00 PENICILL Drug Active 2021-02 MD INS Class 2-09 Anderso 00:00: n 00 PENICILL Drug Active 2021-02 MD INS Class 2-09 Anderso 00:00: n 00 PENICILL Drug Active 2021-02 MD INS Class 2-09 Anderso 00:00: n 00 PENICILL Drug Active 2021-02 MD INS Class 2-09 Anderso 00:00: n 00 PENICILL Drug Active 2021-02 MD INS Class 2-09 Anderso 00:00: n 00 PENICILL Drug Active 2021-02 MD INS Class 2-09 Anderso 00:00: n 00 PENICILL Drug Active 2021-02 MD INS Class 2-09 Anderso 00:00: n 00 PENICILL Drug Active 2021-02 MD INS Class 2-09 Anderso 00:00: n 00 Penicill Propensi Active 2021-02 Univer s ins ty to 2 ity of adverse 00:00: [place] reaction 00 [facility] Codeine Propensi Active Other - See Headaches Univers ty to comments 03-23 ity of adverse 00:00: [place] reaction 00 Medical s Branch CODEINE DRUG Active Other-Cmnt Unive rs INGREDI 03-23 ity of 00:00: [place] 00 Medical Branch CODEINE DRUG Active Nausea 2015- INGREDI 22 Anderso 00:00: n 00 CODEINE DRUG Active Nausea 2015-02 INGREDI 22 Anderso 00:00: n 00 CODEINE DRUG Active Nausea 2015- MD INGREDI 22 Anderso 00:00: n 00 CODEINE DRUG Active Nausea 2015- MD INGREDI 22 Anderso 00:00: n 00 CODEINE DRUG Active Nausea 2015- MD INGREDI 22 Anderso 00:00: n 00 CODEINE DRUG Active Nausea 2015- MD INGREDI 22 Anderso 00:00: n 00 CODEINE DRUG Active Nausea 2015- MD INGREDI 22 Anderso 00:00: n 00 CODEINE DRUG Active Nausea 2015- MD INGREDI 22 Anderso 00:00: n 00 CODEINE DRUG Active Nausea 2015- MD INGREDI 1-22 Anderso 00:00: n 00 CODEINE DRUG Active Nausea 2015- MD INGREDI 1-22 Anderso 00:00: n 00 CODEINE DRUG Active Nausea 2015- MD INGREDI -22 Anderso 00:00: n 00 CODEINE DRUG Active Nausea 2015- MD INGREDI 22 Anderso 00:00: n 00 CODEINE DRUG Active Nausea 2015- MD INGREDI 122 Anderso 00:00: n 00 CODEINE DRUG Active Nausea 2015-02 INGREDI 1-22 Anderso 00:00: n 00 CODEINE DRUG Active Nausea 2015-02 INGREDI 03-21 Anderso 00:00: n 00 CODEINE DRUG Active Nausea 2015-02 INGREDIndigo 03-21 Anderso 00:00: n 00 Codeine Propensi Active Other (See 2015-02 Headaches Methodi ty to Comments) 03-21 st adverse 00:00: Hospita reaction 00 l s to drug Codeine Drug Active Other (See 2015-02 Headaches Un zohra Allergy Comments) 03-21 Headaches ity of 00:00: [place] 00 [facility] Amoxicil Propensi Active Rash Method i hanane ty to 09-28 st adverse 00:00: Hospita reaction 00 l s to drug Moxiflox Propensi Active Rash Method i acin ty to 09-28 adverse 00:00: Hospita reaction 00 l s to drug Clarithr Propensi Active Rash Method i omycin ty to 09-28 adverse 00:00: Hospita reaction 00 l s to drug Moxiflox Propensi Active Anaphylaxis U nivers acin ty to 10-13 ity of adverse 00:00: [place] reaction 00 Medical s Branch Clarithr Propensi Active Swelling Univ ers omycin ty to 10-13 ity of adverse 00:00: [place] reaction 00 Medical s Branch AMOXICIL DRUG Active Anaphylaxis Uni vers HANANE INGREDI 10-13 ity of 00:00: [place] 00 Medical Branch MOXIFLOX DRUG Active Anaphylaxis Uni vers ACIN INGREDI 10-13 ity of 00:00: [place] 00 Medical Branch CLARITHR DRUG Active Swelling Univer s OMYCIN INGREDI 16 ity of 00:00: [place] 00 Medical Branch amoxicil amoxicil Active Memori a hanane hanane l [place] Biaxin Biaxin Active Memoria l [place] Avelox Avelox Active Memoria l [place] Family History Family Member Diagnosis Comments Start Date Stop Date Source Natural sister No Known Problems Met [facility] Natural father Suicidality [facility] Natural [facility] Hy[facility] Social History Social Habit Start Date Stop Date Quantity Comments Source Tobacco use and 2022-02-05 2022-02-05 Smokeless tobacco Un iversity of exposure 00:00:00 00:00:00 non-user [place] MD Pra[facility] Exposure to 2022-01-08 2022-01-18 Not sure [facility]-CoV-2 00:00:00 10:56:00 [place] Medical (event) Branch Alcohol intake 2020-05-12 2020-05-12 Current [facility] 00:00:00 00:00:00 non-drinker of alcohol (finding) Social History 2018-11-02 2018-11-02 [facility] 20:23:41 20:23:41 Sex [birth year] At [birth year] CHRISTINE Mathews 00:00:00 [facility] Smoking Status Start Date Stop Date Source Never smoked tobacco [facility] Medications Ordered Filled Start Stop Current Ordering Indication Dosage Frequency Signature Comments Components Source Medication Medication Date Date Medication? Clinician (SIG) Name Name mateusz 2021-02 Yes [id number] 20mg Take 1 Univers amine 20 mg 2-27 capsule by it y of capsule 00:00: mouth [place] 00 every Medical morning. Branch lisdexamfet 2021-02 Yes [id number] 20mg Take 1 Univers amine 20 mg 2-27 capsule by it y of capsule 00:00: mouth [place] 00 every Medical morning. Branch lisdexamfet 2021-02 Yes [id number] 20mg Take 1 Univers amine 20 mg 2-27 capsule by it y of capsule 00:00: mouth [place] 00 every Medical morning. Branch lisdexamfet 2021-02 Yes [id number] 20mg Take 1 Univers amine 20 mg 2-27 capsule by it y of capsule 00:00: mouth [place] 00 every Medical morning. Branch esomeprazol 2021-02 Yes 1{tbl} Take 1 Un zohra e magnesium 2-09 tablet by ity of 20 mg TbEC 08:32: mouth [place] 26 daily. MD Sylvester wang [facility] potassium 2021-02 Yes 20meq Take 1 Unive rs chloride 2-09 tablet (20 ity o f (K-DUR,KLOR 08:32: mEq) by Dejuan as -CON M) 20 26 mouth mEq tablet daily. Sylvester wang [facility] Linzess 145 2021-02 Yes 145ug Take 1 Uni vers mcg capsule 1-22 capsule ity o f 00:00: (145 mcg) [place] 00 by mouth MD daily. [facility] omeprazole 2021-02 Yes 20mg Take 20 mg U nivers magnesium 1-21 by mouth ity of (ACID 11:43: every [place] UNLEAVENED DOUGH MIXER, 25 morning. Medical OMEPRAZOLE, Branch ORAL) omeprazole 2021-02 Yes 20mg Take 20 mg U nivers magnesium 1-21 by mouth ity of (ACID 11:43: every [place] UNLEAVENED DOUGH MIXER, 25 morning. Medical OMEPRAZOLE, Branch ORAL) omeprazole 2021-02 Yes 20mg Take 20 mg U nivers magnesium 1-21 by mouth ity of (ACID 11:43: every [place] UNLEAVENED DOUGH MIXER, 25 morning. Medical OMEPRAZOLE, Branch ORAL) omeprazole 2021-02 Yes 20mg Take 20 mg U nivers magnesium 1-21 by mouth ity of (ACID 11:43: every [place] UNLEAVENED DOUGH MIXER, 25 morning. Medical OMEPRAZOLE, Branch ORAL) omeprazole 2021-02 Yes 20mg Take 20 mg U nivers magnesium 1-21 by mouth ity of (ACID 11:43: every [place] UNLEAVENED DOUGH MIXER, 25 morning. Medical OMEPRAZOLE, Branch ORAL) omeprazole 2021-02 Yes 20mg Take 20 mg U nivers magnesium 1-21 by mouth ity of (ACID 11:43: every [place] UNLEAVENED DOUGH MIXER, 25 morning. Medical OMEPRAZOLE, Branch ORAL) omeprazole 2021-02 Yes 20mg Take 20 mg U nivers magnesium 1-21 by mouth ity of (ACID 11:43: every [place] UNLEAVENED DOUGH MIXER, 25 morning. Medical OMEPRAZOLE, Branch ORAL) omeprazole 2021-02 Yes 20mg Take 20 mg U nivers magnesium 1-21 by mouth ity of (ACID 11:43: every [place] UNLEAVENED DOUGH MIXER, 25 morning. Medical OMEPRAZOLE, Branch ORAL) omeprazole 2021-02 Yes 20mg Take 20 mg U nivers magnesium 1-21 by mouth ity of (ACID 11:43: every [place] UNLEAVENED DOUGH MIXER, 25 morning. Medical OMEPRAZOLE, Branch ORAL) omeprazole 2021-02 Yes 20mg Take 20 mg U nivers magnesium 1-21 by mouth ity of (ACID 11:43: every [place] UNLEAVENED DOUGH MIXER, 25 morning. Medical OMEPRAZOLE, Branch ORAL) omeprazole 2021-02 Yes 20mg Take 20 mg U nivers magnesium 1-21 by mouth ity of (ACID 11:43: every [place] UNLEAVENED DOUGH MIXER, 25 morning. Medical OMEPRAZOLE, Branch ORAL) omeprazole 2021-02 Yes 20mg Take 20 mg U nivers magnesium 1-21 by mouth ity of (ACID 11:43: every [place] UNLEAVENED DOUGH MIXER, 25 morning. Medical OMEPRAZOLE, Branch ORAL) TURMERIC 2021-02- No 750mg Take 750 Uni vers (CURCUMIN 1-21 11-21 mg by ity of MIS) 11:41: 00:00 mouth [place] 52 :00 daily. [facility] TURMERIC 2021-02- No 750mg Take 750 Uni vers (CURCUMIN 1-21 11-21 mg by ity of MIS) 11:41: 00:00 mouth [place] 52 :00 daily. [facility] methotrexat 2021-02- No 7.5mg Take 7.5 Univers e 2.5 mg 1-21 11-21 mg by ity of tablet 11:39: 00:00 mouth [place] 46 :00 weekly. [facility] methotrexat 2021-02- No 7.5mg Take 7.5 Univers e 2.5 mg 1-21 11-21 mg by ity of tablet 11:39: 00:00 mouth [place] 46 :00 weekly. [facility] krill-omega 2021-02- No 300mg Take 300 Univers -3-dha-epa- 1-21 11-21 mg by ity of lipids 11:37: 00:00 mouth [place] 300-90-24-5 35 :00 daily. Medica l 0 mg [facility] krill-omega 2021-02 No 300mg Take 300 Univers -3-dha-epa- 1-21 11-21 mg by ity of lipids 11:37: 00:00 mouth [place] 300-90-24-5 35 :00 daily. Medica l 0 mg [facility] aspirin 81 2021-02- No 81mg Take 81 mg Univers mg EC 1-21 11-21 by mouth ity of tablet 11:36: 00:00 daily. [place] 18 :00 [facility] aspirin 81 2021-02- No 81mg Take 81 mg Univers mg EC 1-21 11-21 by mouth ity of tablet 11:36: 00:00 daily. [place] 18 :00 [facility] lisdexamfet 2021-02 Yes [id number] 20mg Take 1 Univers amine 20 mg 1-21 capsule by it y of capsule 00:00: mouth [place] 00 every Medical morning. Branch lisdexamfet 2021-02 Yes [id number] 20mg Take 1 Univers amine 20 mg 1-21 capsule by it y of capsule 00:00: mouth [place] 00 every Medical morning. [place] lisdexamfet 2021-02 Yes [id number] 20mg Take 1 Univers amine 20 mg 1-21 capsule by it y of capsule 00:00: mouth [place] 00 every Medical morning. Branch lisdexamfet 2021-02 Yes [id number] 20mg Take 1 Univers amine 20 mg 1-21 capsule by it y of capsule 00:00: mouth [place] 00 every Medical morning. [place] lisdexamfet 2021-02 Yes [id number] 20mg Take 1 Univers amine 20 mg 1-21 capsule by it y of capsule 00:00: mouth [place] 00 every Medical morning. [place] lisdexamfet 2021-02 Yes [id number] 20mg Take 1 Univers amine 20 mg 1-21 capsule by it y of capsule 00:00: mouth [place] 00 every Medical morning. [place] lisdexamfet 2021-02 Yes [id number] 20mg Take 1 Univers amine 20 mg 1-21 capsule by it y of capsule 00:00: mouth [place] 00 every Medical morning. [place] lisdexamfet 2021-02 Yes [id number] 20mg Take 1 Univers amine 20 mg 1-21 capsule by it y of capsule 00:00: mouth [place] 00 every Medical morning. [place] Vyvanse 20 2021-02 Yes 20mg Take 1 Unive rs mg capsule 1-21 capsule ity of 00:00: (20 mg) by [place] [id number] mouth daily. [facility] lisdexamfet 2021-02- No [id number] 20mg Take 1 Univers amine 20 mg 1-21 12-27 capsule by i ty of capsule 00:00: 00:00 mouth [place] 00 :00 every Medical morning. [place] furosemide 2021-02 Yes 40mg Take 1 Unive rs (LASIX) 40 1-17 tablet (40 ity of mg tablet 00:00: mg) by [place] [id number] mouth daily. [facility] furosemide 2021-02 Yes 40mg Take 40 mg U nivers (LASIX) 40 0-25 by mouth ity o f mg tablet 13:47: daily. [address] KCL (K-DUR) 2021-02 Yes 1{tbl} Take 1 Tab Univers 20 mEq 0-25 by mouth ity of tablet 13:47: daily. [address] glucosamine 2021-02 Yes 2{tbl} Take 2 Un zohra -D3-[place]ay[place] 0-25 tablets by it y of ia serr 13:47: mouth [place] 1,500-400-1 32 daily. Medica l 00 Branch mg-unit-mg Tab krill-omega 2021-02 Yes 300mg Take 300 U nivers -3-dha-epa- 0-25 mg by ity of lipids 13:47: mouth [place] 300-90-24-5 32 daily. Medica l 0 mg Cap Branch TURMERIC 2021-02 Yes 750mg Take 750 Univ ers (CURCUMIN 0-25 mg by ity of MISC) 13:47: mouth [place] 32 daily. Medical Branch methotrexat 2021-02 Yes 7.5mg Take 7.5 U nivers e 2.5 mg 0-25 mg by ity of tablet 13:47: mouth [place] 32 weekly. Medical Branch furosemide 2021-02 Yes 40mg Take 40 mg U nivers (LASIX) 40 0-25 by mouth ity o f mg tablet 13:47: daily. [address] KCL (K-DUR) 2021-02 Yes 1{tbl} Take 1 Tab Univers 20 mEq 0-25 by mouth ity of tablet 13:47: daily. [address] glucosamine 2021-02 Yes 2{tbl} Take 2 Un zohra -D3-Pro 0-25 tablets by it y of ia serr 13:47: mouth [place] 1,500-400-1 32 daily. Medica l 00 Branch mg-unit-mg Tab krill-omega 2021-02 Yes 300mg Take 300 U nivers -3-dha-epa- 0-25 mg by ity of lipids 13:47: mouth [place] 300-90-24-5 32 daily. Medica l 0 mg Cap Branch TURMERIC 2021-02 Yes 750mg Take 750 Univ ers (CURCUMIN 0-25 mg by ity of MISC) 13:47: mouth [place] 32 daily. Medical Branch methotrexat 2021-02 Yes 7.5mg Take 7.5 U nivers e 2.5 mg 0-25 mg by ity of tablet 13:47: mouth [place] 32 weekly. Medical Branch furosemide 2021-02 Yes 40mg Take 40 mg U nivers (LASIX) 40 0-25 by mouth ity o f mg tablet 13:47: daily. [address] KCL (K-DUR) 2021-02 Yes 1{tbl} Take 1 Tab Univers 20 mEq 0-25 by mouth ity of tablet 13:47: daily. [address] glucosamine 2021-02 Yes 2{tbl} Take 2 Un zohra -D3-[place] 0-25 tablets by it y of ia serr 13:47: mouth [place] 1,500-400-1 32 daily. Medica l 00 Branch mg-unit-mg Tab krill-omega 2021-02 Yes 300mg Take 300 U nivers -3-dha-epa- 0-25 mg by ity of lipids 13:47: mouth [place] 300-90-24-5 32 daily. Medica l 0 mg Cap Branch TURMERIC 2021-02 Yes 750mg Take 750 Univ ers (CURCUMIN 0-25 mg by ity of MISC) 13:47: mouth [place] 32 daily. Medical Branch methotrexat 2021-02 Yes 7.5mg Take 7.5 U nivers e 2.5 mg 0-25 mg by ity of tablet 13:47: mouth [place] 32 weekly. Medical Branch furosemide 2021-02 Yes 40mg Take 40 mg U nivers (LASIX) 40 0-25 by mouth ity o f mg tablet 13:47: daily. [address] KCL (K-DUR) 2021-02 Yes 1{tbl} Take 1 Tab Univers 20 mEq 0-25 by mouth ity of tablet 13:47: daily. [address] glucosamine 2021-02 Yes 2{tbl} Take 2 Un zohra -D3-Pro 0-25 tablets by it y of ia serr 13:47: mouth [place] 1,500-400-1 32 daily. Medica l 00 Branch mg-unit-mg Tab krill-omega 2021-02 Yes 300mg Take 300 U nivers -3-dha-epa- 0-25 mg by ity of lipids 13:47: mouth [place] 300-90-24-5 32 daily. Medica l 0 mg Cap Branch TURMERIC 2021-02 Yes 750mg Take 750 Univ ers (CURCUMIN 0-25 mg by ity of MIS) 13:47: mouth [place] 32 daily. Medical Branch methotrexat 2021-02 Yes 7.5mg Take 7.5 U nivers e 2.5 mg 0-25 mg by ity of tablet 13:47: mouth [place] 32 weekly. Medical Branch furosemide 2021-02 Yes 40mg Take 40 mg U nivers (LASIX) 40 0-25 by mouth ity o f mg tablet 13:47: daily. [place] [address] Medical Branch KCL (K-DUR) 2021-02 Yes 1{tbl} Take 1 Tab Univers 20 mEq 0-25 by mouth ity of tablet 13:47: daily. [place] [address] Medical Branch glucosamine 2021-02 Yes 2{tbl} Take 2 Un zohra -D3-[place] 0-25 tablets by it y of ia serr 13:47: mouth [place] 1,500-400-1 32 daily. Medica l 00 Branch mg-unit-mg Tab krill-omega 2021-02 Yes 300mg Take 300 U nivers -3-dha-epa- 0-25 mg by ity of lipids 13:47: mouth [place] 300-90-24-5 32 daily. Medica l 0 mg Cap Branch TURMERIC 2021-02 Yes 750mg Take 750 Univ ers (CURCUMIN 0-25 mg by ity of [facility]) 13:47: mouth [place] 32 daily. Medical Branch methotrexat 2021-02 Yes 7.5mg Take 7.5 U nivers e 2.5 mg 0-25 mg by ity of tablet 13:47: mouth [place] 32 weekly. Medical Branch furosemide 2021-02 Yes 40mg Take 40 mg U nivers (LASIX) 40 0-25 by mouth ity o f mg tablet 13:47: daily. [place] [address] Medical Branch KCL (K-DUR) 2021-02 Yes 1{tbl} Take 1 Tab Univers 20 mEq 0-25 by mouth ity of tablet 13:47: daily. [place] [address] Medical Branch glucosamine 2021-02 Yes 2{tbl} Take 2 Un zohra -D3-[place] 0-25 tablets by it y of ia serr 13:47: mouth [place] 1,500-400-1 32 daily. Medica l 00 Branch mg-unit-mg Tab furosemide 2021-02 Yes 40mg Take 40 mg U nivers (LASIX) 40 0-25 by mouth ity o f mg tablet 13:47: daily. [address] KCL (K-DUR) 2021-02 Yes 1{tbl} Take 1 Tab Univers 20 mEq 0-25 by mouth ity of tablet 13:47: daily. [address] glucosamine 2021-02 Yes 2{tbl} Take 2 Un zohra -D3-Pro 0-25 tablets by it y of ia serr 13:47: mouth [place] 1,500-400-1 32 daily. Medica l 00 Branch mg-unit-mg Tab furosemide 2021-02 Yes 40mg Take 40 mg U nivers (LASIX) 40 0-25 by mouth ity o f mg tablet 13:47: daily. [address] (KDUR) 2021-02 Yes 1{tbl} Take 1 Tab Univers 20 mEq 0-25 by mouth ity of tablet 13:47: daily. [address] glucosamine 2021-02 Yes 2{tbl} Take 2 Un zohra -D3-[place] 0-25 tablets by it y of ia serr 13:47: mouth [place] 1,500-400-1 32 daily. Medica l 00 Branch mg-unit-mg Tab furosemide 2021-02 Yes 40mg Take 40 mg U nivers (LASIX) 40 0-25 by mouth ity o f mg tablet 13:47: daily. [address] (K-DUR) 2021-02 Yes 1{tbl} Take 1 Tab Univers 20 mEq 0-25 by mouth ity of tablet 13:47: daily. [address] glucosamine 2021-02 Yes 2{tbl} Take 2 Un zohra -D3-Pro 0-25 tablets by it y of ia serr 13:47: mouth [place] 1,500-400-1 32 daily. Medica l 00 Branch mg-unit-mg Tab furosemide 2021-02 Yes 40mg Take 40 mg U nivers (LASIX) 40 0-25 by mouth ity o f mg tablet 13:47: daily. [address] KCL (K-DUR) 2021-02 Yes 1{tbl} Take 1 Tab Univers 20 mEq 0-25 by mouth ity of tablet 13:47: daily. [address] glucosamine 2021-02 Yes 2{tbl} Take 2 Un zohra -D3-[place] 0-25 tablets by it y of ia serr 13:47: mouth [place] 1,500-400-1 32 daily. Medica l 00 Branch mg-unit-mg Tab furosemide 2021-02 Yes 40mg Take 40 mg U nivers (LASIX) 40 0-25 by mouth ity o f mg tablet 13:47: daily. [address] KCL (K-DUR) 2021-02 Yes 1{tbl} Take 1 Tab Univers 20 mEq 0-25 by mouth ity of tablet 13:47: daily. [address] glucosamine 2021-02 Yes 2{tbl} Take 2 Un zohra -D3-[place] 0-25 tablets by it y of ia serr 13:47: mouth [place] 1,500-400-1 32 daily. Medica l 00 Branch mg-unit-mg Tab furosemide 2021-02 Yes 40mg Take 40 mg U nivers (LASIX) 40 0-25 by mouth ity o f mg tablet 13:47: daily. [address] KCL (K-DUR) 2021-02 Yes 1{tbl} Take 1 Tab [facility] 20 mEq 0-25 by mouth ity of tablet 13:47: daily. [address] glucosamine 2021-02 Yes 2{tbl} Take 2 Un zohra -D3-Pro 0-25 tablets by it y of ia serr 13:47: mouth [place] 1,500-400-1 32 daily. Medica l 00 Branch mg-unit-mg Tab furosemide 2021-02 Yes 40mg Take 40 mg U nivers (LASIX) 40 0-25 by mouth ity o f mg tablet 13:47: daily. [address] KCL (K-DUR) 2021-02 Yes 1{tbl} Take 1 Tab [facility] 20 mEq 0-25 by mouth ity of tablet 13:47: daily. [address] glucosamine 2021-02 Yes 2{tbl} Take 2 Un zohra -D3-Pro 0-25 tablets by it y of ia serr 13:47: mouth [place] 1,500-400-1 32 daily. Medica l 00 Branch mg-unit-mg Tab furosemide 2021-02 Yes 40mg Take 40 mg U nivers (LASIX) 40 0-25 by mouth ity o f mg tablet 13:47: daily. [address] KCL (K-DUR) 2021-02 Yes 1{tbl} Take 1 Tab [facility] 20 mEq 0-25 by mouth ity of tablet 13:47: daily. [address] glucosamine 2021-02 Yes 2{tbl} Take 2 Un zohra -D3-Pro 0-25 tablets by it y of ia serr 13:47: mouth [place] 1,500-400-1 32 daily. Medica l 00 Branch mg-unit-mg Tab furosemide 2021-02 Yes 40mg Take 40 mg U nivers (LASIX) 40 0-25 by mouth ity o f mg tablet 13:47: daily. [address] KCL (K-DUR) 2021-02 Yes 1{tbl} Take 1 Tab [facility] 20 mEq 0-25 by mouth ity of tablet 13:47: daily. [address] glucosamine 2021-02 Yes 2{tbl} Take 2 Un zohra -D3-Pro 0-25 tablets by it y of ia serr 13:47: mouth [place] 1,500-400-1 32 daily. Medica l 00 Branch mg-unit-mg Tab furosemide 2021-02 Yes 40mg Take 40 mg U nivers (LASIX) 40 0-25 by mouth ity o f mg tablet 13:47: daily. [address] KCL (K-DUR) 2021-02 Yes 1{tbl} Take 1 Tab [facility] 20 mEq 0-25 by mouth ity of tablet 13:47: daily. [address] glucosamine 2021-02 Yes 2{tbl} Take 2 Un zohra -D3-Rpo 0-25 tablets by it y of ia serr 13:47: mouth [place] 1,500-400-1 32 daily. Medica l 00 Branch mg-unit-mg Tab furosemide 2021-02 Yes 40mg Take 40 mg U nivers (LASIX) 40 0-25 by mouth ity o f mg tablet 13:47: daily. [address] KCL (K-DUR) 2021-02 Yes 1{tbl} Take 1 Tab [facility] 20 mEq 0-25 by mouth ity of tablet 13:47: daily. [address] glucosamine 2021-02 Yes 2{tbl} Take 2 Un zohra -D3-Pro 0-25 tablets by it y of ia serr 13:47: mouth [place] 1,500-400-1 32 daily. Medica l 00 Branch mg-unit-mg Tab aspirin 2021-02 Yes 81mg Take 81 mg U nivers mg EC 0-25 by mouth ity of tablet 13:45: daily. [place] [address] Medical Branch Cholecalcif 2021-02 Yes 1000U Take 1,000 [facility] mathew, 0-25 Units by ity of Vitamin D3, 13:45: mouth [place] 25 mcg 37 daily. Medical (1,000 Branch unit) capsule aspirin 2021-02 Yes 81mg Take 81 mg U nivers mg EC 0-25 by mouth ity of tablet 13:45: daily. [place] [address] Medical Branch Cholecalcif 2021-02 Yes 1000U Take 1,000 [facility] mathew, 0-25 Units by ity of Vitamin D3, 13:45: mouth [place] 25 mcg 37 daily. Medical (1,000 Branch unit) capsule aspirin 2021-02 Yes 81mg Take 81 mg U nivers mg EC 0-25 by mouth ity of tablet 13:45: daily. [place] [address] Medical Branch Cholecalcif 2021-02 Yes 1000U Take 1,000 [facility] mathew, 0-25 Units by ity of Vitamin D3, 13:45: mouth [place] 25 mcg 37 daily. Medical (1,000 Branch unit) capsule aspirin 2021-02 Yes 81mg Take 81 mg U nivers mg EC 0-25 by mouth ity of tablet 13:45: daily. [place] [address] Medical Branch Cholecalcif 2021-02 Yes 1000U Take 1,000 [facility] mathew, 0-25 Units by ity of Vitamin D3, 13:45: mouth [place] 25 mcg 37 daily. Medical (1,000 Branch unit) capsule aspirin 2021-02 Yes 81mg Take 81 mg U nivers mg EC 0-25 by mouth ity of tablet 13:45: daily. [place] [address] Medical Branch Cholecalcif 2021-02 Yes 1000U Take 1,000 [facility] mathew, 0-25 Units by ity of Vitamin D3, 13:45: mouth [place] 25 mcg 37 daily. Medical (1,000 Branch unit) capsule Cholecalcif 2021-02 Yes 1000U Take 1,000 [facility] mathew, 0-25 Units by ity of Vitamin D3, 13:45: mouth [place] 25 mcg 37 daily. Medical (1,000 Branch unit) capsule Cholecalcif 2021-02 Yes 1000U Take 1,000 [facility] mathew, 0-25 Units by ity of Vitamin D3, 13:45: mouth [place] 25 mcg 37 daily. Medical (1,000 Branch unit) capsule Cholecalcif 2021- Yes 1000U Take 1,000 [facility] mathew, 0-25 Units by ity of Vitamin D3, 13:45: mouth [place] 25 mcg 37 daily. Medical (1,000 Branch unit) capsule Cholecalcif 2021- Yes 1000U Take 1,000 [facility] mathew, 0-25 Units by ity of Vitamin D3, 13:45: mouth [place] 25 mcg 37 daily. Medical (1,000 Branch unit) capsule Cholecalcif 2021- Yes 1000U Take 1,000 [facility] mathew, 0-25 Units by ity of Vitamin D3, 13:45: mouth [place] 25 mcg 37 daily. Medical (1,000 Branch unit) capsule Cholecalcif 2021- Yes 1000U Take 1,000 [facility] mathew, 0-25 Units by ity of Vitamin D3, 13:45: mouth [place] 25 mcg 37 daily. Medical (1,000 Branch unit) capsule Cholecalcif 2021- Yes 1000U Take 1,000 [facility] mathew, 0-25 Units by ity of Vitamin D3, 13:45: mouth [place] 25 mcg 37 daily. Medical (1,000 Branch unit) capsule Cholecalcif 2021-02 Yes 1000U Take 1,000 [facility] mathew, 0-25 Units by ity of Vitamin D3, 13:45: mouth [place] 25 mcg 37 daily. Medical (1,000 Branch unit) capsule Cholecalcif 2021- Yes 1000U Take 1,000 [facility] mathew, 0-25 Units by ity of Vitamin D3, 13:45: mouth [place] 25 mcg 37 daily. Medical (1,000 Branch unit) capsule Cholecalcif 2021- Yes 1000U Take 1,000 [facility] mathew, 0-25 Units by ity of Vitamin D3, 13:45: mouth [place] 25 mcg 37 daily. Medical (1,000 Branch unit) capsule Cholecalcif 2021- Yes 1000U Take 1,000 [facility] mathew, 0-25 Units by ity of Vitamin D3, 13:45: mouth [place] 25 mcg 37 daily. Medical (1,000 Branch unit) capsule Cholecalcif 2021- Yes 1000U Take 1,000 Univers mathew, 0-25 Units by ity of Vitamin D3, 13:45: mouth [place] 25 mcg 37 daily. Medical (1,000 Branch unit) capsule simvastatin 2021-02 Yes 10mg Take 10 mg Univers 10 mg 0-21 by mouth ity of tablet 00:00: once daily [place] 00 as needed. Medical Branch simvastatin 2021-02 Yes 10mg Take 10 mg Univers 10 mg 0-21 by mouth ity of tablet 00:00: once daily [place] 00 as needed. Medical Branch simvastatin 2021-02 Yes 10mg Take 10 mg Univers 10 mg 0-21 by mouth ity of tablet 00:00: once daily [place] 00 as needed. Medical Branch simvastatin 2021-02 Yes 10mg Take 10 mg Univers 10 mg 0-21 by mouth ity of tablet 00:00: once daily [place] 00 as needed. Medical Branch simvastatin 2021-02 Yes 10mg Take 10 mg Univers 10 mg 0-21 by mouth ity of tablet 00:00: once daily [place] 00 as needed. Medical Branch simvastatin 2021-02 Yes 10mg Take 10 mg Univers 10 mg 0-21 by mouth ity of tablet 00:00: once daily [place] 00 as needed. Medical Branch simvastatin 2021-02 Yes 10mg Take 10 mg Univers 10 mg 0-21 by mouth ity of tablet 00:00: once daily [place] 00 as needed. [facility] simvastatin 2021-02 Yes 10mg Take 10 mg Univers 10 mg 0-21 by mouth ity of tablet 00:00: once daily [place] 00 as needed. Medical Branch simvastatin 2021-02 Yes 10mg Take 10 mg Univers 10 mg 0-21 by mouth ity of tablet 00:00: once daily [place] 00 as needed. [facility] simvastatin 2021-02 Yes 10mg Take 10 mg Univers 10 mg 0-21 by mouth ity of tablet 00:00: once daily [place] 00 as needed. [facility] simvastatin 2021-02 Yes 10mg Take 10 mg Univers 10 mg 0-21 by mouth ity of tablet 00:00: once daily [place] 00 as needed. [facility] simvastatin 2021-02 Yes 10mg Take 10 mg Univers 10 mg 0-21 by mouth ity of tablet 00:00: once daily [place] 00 as needed. [facility] simvastatin 2021-02 Yes 10mg Take 10 mg Univers 10 mg 0-21 by mouth ity of tablet 00:00: once daily [place] 00 as needed. [facility] simvastatin 2021-02 Yes 10mg Take 10 mg Univers 10 mg 0-21 by mouth ity of tablet 00:00: once daily [place] [id number] as needed. [facility] simvastatin 2021-02 Yes 10mg Take 10 mg Univers 10 mg 0-21 by mouth ity of tablet 00:00: once daily [place] [id number] as needed. [facility] simvastatin 2021-02 Yes 10mg Take 10 mg Univers 10 mg 0-21 by mouth ity of tablet 00:00: once daily [place] [id number] as needed. [facility] simvastatin 2021-02 Yes 10mg Take 10 mg Univers 10 mg 0-21 by mouth ity of tablet 00:00: once daily [place] [id number] as needed. [facility] simvastatin 2021-02 Yes 10mg Take 1 Univ ers (ZOCOR) 10 0-21 tablet (10 ity of mg tablet 00:00: mg) by [place] [id number] mouth MD daily. [facility] liothyronin 2021-02- No 5ug Take 5 mcg Univers e 5 mcg 0-21 10-25 by mouth ity of tablet 00:00: 00:00 in the [place] 00 :00 morning. [facility] liothyronin 2021-02- No 5ug Take 5 mcg Univers e 5 mcg 0-21 10-25 by mouth ity of tablet 00:00: 00:00 in the [place] 00 :00 morning. [facility] folic acid 2021- No [id number] 1mg QD TAKE 1 [facility] (FOLVITE) 1 9-24 03-24 TABLET (1 st MG tablet 00:00: 04:59 MG TOTAL) [facility] 00 :00 BY MOUTH l DAILY FOR 180 DAYS. furosemide 2019-0 Yes 40mg QD Take 40 mg M ethodi (LASIX) 40 6-[address] MG tablet 10:30: daily. [facility] 31 l cholecalcif 2020-0 Yes 1000U QD Take 1,000 [facility] mathew, 6-[address] vitamin D3, 10:30: mouth [facility]pi [facility] (VITAMIN 31 daily. l D3) 1,000 unit capsule aspirin 2020-0 Yes 81mg QD Take 81 mg Meth ana (ECOTRIN) 6-[address] 81 MG 10:30: daily. [facility] 31 l coated tablet CETIRIZINE 2019-0 Yes QD Take by Meth ana HCL (ZYRTEC 6-[address] ORAL) 10:30: daily. [facility]osp[facility] 31 l docosahexan 2019-0 Yes Take by Met hodi oic 6-[address] acid/epa 10:30: Hospita (FISH OIL 31 l ORAL) propranolol 2018-02 Yes 20 mg, PO, Memoria 20 mg oral 2-03 BID, # 60 l tablet 15:15: tab, 3 [place] 00 Refill(s), Pharmacy: [facility] #[id number] propranolol 2018-02 Yes 20 mg, PO, Memoria 20 mg oral 2-03 BID, # 60 l tablet 15:15: tab, 3 [place] 00 Refill(s), Pharmacy: [facility] #[id number] propranolol 2018-02 Yes 20 mg, PO, Memoria 20 mg oral 2-03 BID, # 60 l tablet 15:15: tab, 3 [place] 00 Refill(s), Pharmacy: [facility] #[id number] propranolol 2018- Yes 20 mg, PO, Memoria 20 mg oral 2-03 BID, # 60 l tablet 15:15: tab, 3 [place] 00 Refill(s), Pharmacy: [facility] #[id number] propranolol 2018-02 Yes 20 mg, PO, Memoria 20 mg oral 2-03 BID, # 60 l tablet 15:15: tab, 3 [place] 00 Refill(s), Pharmacy: [facility] #[id number] propranolol 2018- Yes 20 mg, PO, Memoria 20 mg oral 2-03 BID, # 60 l tablet 15:15: tab, 3 [place] 00 Refill(s), Pharmacy: [facility] #[id number] topiramate 2018-02 Yes 25 mg = 1 Me moria 25 MG Oral 1-18 tab, PO, l Tablet 16:38: BID, # 180 Talisha nn [Topamax] 23 tab, 3 Refill(s), Pharmacy: [facility] #[id number] topiramate 2018- Yes 25 mg = 1 Me moria 25 MG Oral 1-18 tab, PO, l Tablet 16:38: BID, # 180 [place]isha nn [Topamax] 23 tab, 3 Refill(s), Pharmacy: [facility] #[id number] topiramate 2018-02 Yes 25 mg = 1 Me moria 25 MG Oral 1-18 tab, PO, l Tablet 16:38: BID, # 180 Talisha nn [Topamax] 23 tab, 3 Refill(s), Pharmacy: [facility] #[id number] topiramate 2019- Yes 25 mg = 1 Me moria 25 MG Oral 1-18 tab, PO, l Tablet 16:38: BID, # 180 [place]isha nn [Topamax] 23 tab, 3 Refill(s), Pharmacy: [facility] #[id number] topiramate 2018- Yes 25 mg = 1 Me moria 25 MG Oral 1-18 tab, PO, l Tablet 16:38: BID, # 180 Talisha nn [Topamax] 23 tab, 3 Refill(s), Pharmacy: [facility] #[id number] topiramate 2019- Yes 25 mg = 1 Me moria 25 MG Oral 1-18 tab, PO, l Tablet 16:38: BID, # 180 Talisha nn [Topamax] 23 tab, 3 Refill(s), Pharmacy: [facility] #[id number] topiramate 2019- No 25 mg = 1 Me moria 25 MG Oral 1-05 tab, PO, l Tablet 19:23: BID, X 30 Jostin n [Topamax] 00 day, # 60 tab, 2 Refill(s), Pharmacy: [facility] #[id number] topiramate 2018- No 25 mg = 1 Me moria 25 MG Oral 1-05 tab, PO, l Tablet 19:23: BID, X 30 [place]ost[place] n [Topamax] 00 day, # 60 tab, 2 Refill(s), Pharmacy: [facility] #[id number] topiramate 2019- No 25 mg = 1 Me moria 25 MG Oral 1-05 tab, PO, l Tablet 19:23: BID, X 30 [place]ost[place] n [Topamax] 00 day, # 60 tab, 2 Refill(s), Pharmacy: [facility] #[id number] topiramate 2019- No 25 mg = 1 Me moria 25 MG Oral 1-05 tab, PO, l Tablet 19:23: BID, X 30 Jostin n [Topamax] 00 day, # 60 tab, 2 Refill(s), Pharmacy: [place]/[facility] #[id number] topiramate 2019- No 25 mg = 1 Me moria 25 MG Oral 1-05 tab, PO, l Tablet 19:23: BID, X 30 Jost[place] n [Topamax] 00 day, # 60 tab, 2 Refill(s), Pharmacy: [facility] #[id number] topiramate 2018-02 No 25 mg = 1 Me moria 25 MG Oral 1-05 tab, PO, l Tablet 19:23: BID, X 30 [place]ost[place] n [Topamax] 00 day, # 60 tab, 2 Refill(s), [id number] methotrexat 2018-02 Yes 15 mg = 2 M emoria e 7.5 mg 0-29 tab, PO, l oral tablet 21:22: Q7D, # 2 [place] 00 tab, 0 Refill(s) methotrexat 2018-02 Yes 15 mg = 2 M emoria e 7.5 mg 0-29 tab, PO, l oral tablet 21:22: Q7D, # 2 [place] 00 tab, 0 Refill(s) methotrexat 2018-02 Yes 15 mg = 2 M emoria e 7.5 mg 0-29 tab, PO, l oral tablet 21:22: Q7D, # 2 [place] 00 tab, 0 Refill(s) methotrexat 2018-02 Yes 15 mg = 2 M emoria e 7.5 mg 0-29 tab, PO, l oral tablet 21:22: Q7D, # 2 [place] 00 tab, 0 Refill(s) methotrexat 2018-02 Yes 15 mg = 2 M emoria e 7.5 mg 0-29 tab, PO, l oral tablet 21:22: Q7D, # 2 [place] 00 tab, 0 Refill(s) methotrexat 2018-02 Yes 15 mg = 2 M emoria e 7.5 mg 0-29 tab, PO, l oral tablet 21:22: Q7D, # 2 [place] 00 tab, 0 Refill(s) primidone Yes 50 mg = 1 Mem oria 50 mg oral 9-05 tab, PO, l tablet 20:37: Bedtime, # Talisha nn 00 30 tab, 3 Refill(s), [id number] primidone Yes 50 mg = 1 Mem oria 50 mg oral 9-05 tab, PO, l tablet 20:37: Bedtime, # Talisha nn 00 30 tab, 3 Refill(s), [id number] primidone 2019-0 Yes 50 mg = 1 Mem oria 50 mg oral 9-05 tab, PO, l tablet 20:37: Bedtime, # Talisha nn 00 30 tab, 3 Refill(s), [id number] primidone 2019-0 Yes 50 mg = 1 Mem oria 50 mg oral 9-05 tab, PO, l tablet 20:37: Bedtime, # Talisha nn 00 30 tab, 3 Refill(s), Pharmacy: [facility] #[id number] primidone 2019-0 Yes 50 mg = 1 Mem oria 50 mg oral 9-05 tab, PO, l tablet 20:37: Bedtime, # Talisha nn 00 30 tab, 3 Refill(s), Pharmacy: [facility] #[id number] primidone 2019-0 Yes 50 mg = 1 Mem oria 50 mg oral 9-05 tab, PO, l tablet 20:37: Bedtime, # Talisha nn 00 30 tab, 3 Refill(s), Pharmacy: [facility] #[id number] Methscopola 2019-0 Yes 5 mg, PO, M emoria mine 11-02 PRN, 0 l 20:02: Refill(s) Furosemide 2019-0 Yes 40 mg, PO, M emoria 11-02 Daily, 0 l 20:02: Refill(s) Osteo 2019-0 Yes 2 tab, PO, Memori a Bi-Flex 11-02 Daily, 0 l 20:02: Refill(s) Simvastatin 2019-0 Yes 10 mg, PO, Memoria 11-02 Daily, 0 l 20:02: Refill(s) Zyrtec 2019-0 Yes Daily, 0 Memoria 11-02 Refill(s) l 20:02: Aspirin 2019-0 Yes 81 mg, PO, Chivo netta 05 0 l 20:02: Refill(s) Vitamin D3 2019-0 Yes 4,000 mg, Me moria 9-05 PO, Daily, l 20:02: 0 Refill(s) Propranolol 2019-0 Yes 20 mg, PO, Memoria 11-02 Daily, # l 20:02: 100 tab, 0 Refill(s) Methscopola 2019-0 Yes 5 mg, PO, M emoria mine 11-02 PRN, 0 l 20:02: Refill(s) Furosemide 2019-0 Yes 40 mg, PO, M emoria 11-02 Daily, 0 l 20:02: Refill(s) Osteo 2019-0 Yes 2 tab, PO, Memori a Bi-Flex 11-02 Daily, 0 l 20:02: Refill(s) Simvastatin 0 Yes 10 mg, PO, Memoria 11-02 Daily, 0 l 20:02: Refill(s) Zyrtec 2018-0 Yes Daily, 0 Memoria 11-02 Refill(s) l 20:02: Aspirin 2018-0 Yes 81 mg, PO, Chivo netta 11-02 0 l 20:02: Refill(s) Vitamin D3 2018- Yes 4,000 mg, Me moria 11-02 PO, Daily, l 20:02: 0 Refill(s) Propranolol 0 Yes 20 mg, PO, Memoria 11-02 Daily, # l 20:02: 100 tab, 0 Refill(s) Methscopola 20190 Yes 5 mg, PO, M emoria mine 11-02 PRN, 0 l 20:02: Refill(s) Furosemide 2018-0 Yes 40 mg, PO, M emoria 11-02 Daily, 0 l 20:02: Refill(s) Osteo 2019-0 Yes 2 tab, PO, Memori a Bi-Flex 11-02 Daily, 0 l 20:02: Refill(s) Simvastatin 2018-0 Yes 10 mg, PO, Memoria 11-02 Daily, 0 l 20:02: Refill(s) Zyrtec 2018-0 Yes Daily, 0 Memoria 11-02 Refill(s) l 20:02: Aspirin 2019-0 Yes 81 mg, PO, Chivo netta 05 0 l 20:02: Refill(s) Vitamin D3 2018-0 Yes 4,000 mg, Me moria -05 PO, Daily, l 20:02: 0 Refill(s) Propranolol 2019-0 Yes 20 mg, PO, Memoria 11-02 Daily, # l 20:02: 100 tab, 0 Refill(s) Methscopola 2019-0 Yes 5 mg, PO, M emoria mine 11-02 PRN, 0 l 20:02: Refill(s) Furosemide 2019-0 Yes 40 mg, PO, M emoria 11-02 Daily, 0 l 20:02: Refill(s) Osteo 2018-0 Yes 2 tab, PO, Memori a Bi-Flex 11-02 Daily, 0 l 20:02: Refill(s) Simvastatin 2018-0 Yes 10 mg, PO, Memoria 11-02 Daily, 0 l 20:02: Refill(s) Zyrtec 0 Yes Daily, 0 Memoria 11-02 Refill(s) l 20:02: Aspirin 2019-0 Yes 81 mg, PO, Chivo netta 11-02 0 l 20:02: Refill(s) Vitamin D3 2019-0 Yes 4,000 mg, Me moria 11-02 PO, Daily, l 20:02: 0 Refill(s) Propranolol 2019-0 Yes 20 mg, PO, Memoria 11-02 Daily, # l 20:02: 100 tab, 0 Refill(s) Methscopola 2019-0 Yes 5 mg, PO, M emoria mine 11-02 PRN, 0 l 20:02: Refill(s) Furosemide 2019-0 Yes 40 mg, PO, M emoria 11-02 Daily, 0 l 20:02: Refill(s) Osteo 2018-0 Yes 2 tab, PO, Memori a Bi-Flex 11-02 Daily, 0 l 20:02: Refill(s) Simvastatin 2018-0 Yes 10 mg, PO, Memoria 11-02 Daily, 0 l 20:02: Refill(s) Zyrtec 2018-0 Yes Daily, 0 Memoria 11-02 Refill(s) l 20:02: Aspirin 2019-0 Yes 81 mg, PO, Chivo netta 11-02 0 l 20:02: Refill(s) Vitamin D3 2019-0 Yes 4,000 mg, Me moria 9-05 PO, Daily, l 20:02: 0 Refill(s) Propranolol 2019-0 Yes 20 mg, PO, Memoria 9-05 Daily, # l 20:02: 100 tab, 0 Refill(s) Propranolol 2019-0 Yes 20 mg, PO, Memoria 11-02 Daily, # l 20:02: 100 tab, 0 Refill(s) Methscopola 2019-0 Yes 5 mg, PO, M emoria mine 11-02 PRN, 0 l 20:02: Refill(s) Furosemide 2019-0 Yes 40 mg, PO, M emoria 11-02 Daily, 0 l 20:02: Refill(s) Osteo 2019-0 Yes 2 tab, PO, Memori a Bi-Flex 11-02 Daily, 0 l 20:02: Refill(s) Simvastatin 2019-0 Yes 10 mg, PO, Memoria 11-02 Daily, 0 l 20:02: Refill(s) Zyrtec 2019-0 Yes Daily, 0 Memoria 11-02 Refill(s) l 20:02: Aspirin 2019-0 Yes 81 mg, PO, Chivo netta 05 0 l 20:02: Refill(s) Vitamin D3 2019-0 Yes 4,000 mg, Me moria 9-05 PO, Daily, l 20:02: 0 Refill(s) methylPREDN 2019-0 Yes [id number] Take by Univers ISolone 7-22 mouth ity of (MEDROL, 00:00: SEE-INSTRU Dejuan as DENZEL,) 4 mg 00 CTIONS. Medica l tablets follow Branch package directions cyclobenzap 2019-0 Yes [id number] 10mg Take 1 Univers rine 10 mg 7-22 tablet by ity of tablet 00:00: mouth 3 [place] 00 (three) Medical times Branch daily. methylPREDN 2019-0 Yes [id number] Take by Univers ISolone 7-22 mouth ity of (MEDROL, 00:00: SEE-INSTRU [place] as DENZEL,) 4 mg 00 CTIONS. Medica l tablets follow Branch package directions cyclobenzap 2019- Yes [id number] 10mg Take 1 Univers rine 10 mg 7-22 tablet by ity of tablet 00:00: mouth 3 (three) Medical times Branch daily. methylPREDN 2019-0 Yes [id number] Take by Univers ISolone 7-22 mouth ity of (MEDROL, 00:00: SEE-INSTRU [place] as DENZEL,) 4 mg 00 CTIONS. Medica l tablets follow Branch package directions cyclobenzap Yes [id number] 10mg Take 1 Univers rine 10 mg 7-22 tablet by ity of tablet 00:00: mouth 3 (three) Medical times Branch daily. methylPREDN 2019-0 Yes [id number] Take by Univers ISolone 7-22 mouth ity of (MEDROL, 00:00: SEE-INSTRU [place] as DENZEL,) 4 mg 00 CTIONS. Medica l tablets follow Branch package directions cyclobenzap Yes [id number] 10mg Take 1 Univers rine 10 mg 7-22 tablet by ity of tablet 00:00: mouth 3 (three) Medical times Branch daily. methylPREDN 2019-0 Yes [id number] Take by Univers ISolone 7-22 mouth ity of (MEDROL, 00:00: SEE-INSTRU [place] as DENZEL,) 4 mg 00 CTIONS. Medica l tablets follow Branch package directions cyclobenzap Yes [id number] 10mg Take 1 Univers rine 10 mg 7-22 tablet by ity of tablet 00:00: mouth 3 (three) Medical times Branch daily. methylPREDN 2019-0 Yes [id number] Take by Univers ISolone 7-22 mouth ity of (MEDROL, 00:00: SEE-INSTRU [place] as DENZEL,) 4 mg 00 CTIONS. Medica l tablets follow Branch package directions cyclobenzap 2019- Yes [id number] 10mg Take 1 Univers rine 10 mg 7-22 tablet by ity of tablet 00:00: mouth 3 (three) Medical times Branch daily. methylPREDN 2019-0 Yes [id number] Take by Univers ISolone 7-22 mouth ity of (MEDROL, 00:00: SEE-INSTRU [place] as DENZEL,) 4 mg 00 CTIONS. Medica l tablets follow Branch package directions cyclobenzap 2019- Yes [id number] 10mg Take 1 Univers rine 10 mg 7-22 tablet by ity of tablet 00:00: mouth 3 [place] 00 (three) Medical times Branch daily. methylPREDN 2019-0 Yes [id number] Take by Univers ISolone 7-22 mouth ity of (MEDROL, 00:00: SEE-INSTRU [place] as DENZEL,) 4 mg 00 CTIONS. Medica l tablets follow Branch package directions cyclobenzap 2019-0 Yes [id number] 10mg Take 1 Univers rine 10 mg 7-22 tablet by ity of tablet 00:00: mouth 3 [place] 00 (three) Medical times Branch daily. methylPREDN 2019-0 Yes [id number] Take by Univers ISolone 7-22 mouth ity of (MEDROL, 00:00: SEE-INSTRU [place] as DENZEL,) 4 mg 00 CTIONS. Medica l tablets follow Branch package directions cyclobenzap 2019-0 Yes [id number] 10mg Take 1 Univers rine 10 mg 7-22 tablet by ity of tablet 00:00: mouth 3 00 (three) Medical times Branch daily. methylPREDN 2019-0 Yes [id number] Take by Univers ISolone 7-22 mouth ity of (MEDROL, 00:00: SEE-INSTRU [place]ju[place] as DENZEL,) 4 mg 00 CTIONS. Medica l tablets follow Branch package directions methylPREDN 2019-0 Yes [id number] Take by Univers ISolone 7-22 mouth ity of (MEDROL, 00:00: SEE-INSTRU [place]ju[place] as DENZEL,) 4 mg 00 CTIONS. Medica l tablets follow Branch package directions methylPREDN 2019-0 Yes [id number] Take by Univers ISolone 7-22 mouth ity of (MEDROL, 00:00: SEE-INSTRU Dejuan as DENZEL,) 4 mg 00 CTIONS. Medica l tablets follow Branch package directions methylPREDN 2019-0 Yes [id number] Take by Univers ISolone 7-22 mouth ity of (MEDROL, 00:00: SEE-INSTRU Dejuan as DENZEL,) 4 mg 00 CTIONS. Medica l tablets follow Branch package directions methylPREDN 2019-0 Yes [id number] Take by Univers ISolone 7-22 mouth ity of (MEDROL, 00:00: SEE-INSTRU Dejuan as DENZEL,) 4 mg 00 CTIONS. Medica l tablets follow Branch package directions methylPREDN 2019-0 Yes [id number] Take by Univers ISolone 7-22 mouth ity of (MEDROL, 00:00: SEE-INSTRU Dejuan as DENZEL,) 4 mg 00 CTIONS. Medica l tablets follow Branch package directions methylPREDN 2018-0 Yes [id number] Take by Univers ISolone 7-22 mouth ity of (MEDROL, 00:00: SEE-INSTRU Dejuan as DENZEL,) 4 mg 00 CTIONS. Medica l tablets follow Branch package directions methylPREDN 2018-0 Yes [id number] Take by Univers ISolone 7-22 mouth ity of (MEDROL, 00:00: SEE-INSTRU Dejuan as DENZEL,) 4 mg 00 CTIONS. Medica l tablets follow Branch package directions methylPREDN 2018-0 Yes [id number] Take by Univers ISolone 7-22 mouth ity of (MEDROL, 00:00: SEE-INSTRU Dejuan as DENZEL,) 4 mg 00 CTIONS. Medica l tablets follow Branch package directions methylPREDN 2018-0 Yes [id number] Take by Univers ISolone 7-22 mouth ity of (MEDROL, 00:00: SEE-INSTRU Dejuan as DENZEL,) 4 mg 00 CTIONS. Medica l tablets follow Branch package directions methylPREDN 2018- Yes [id number] Take by Univers ISolone 7-22 mouth ity of (MEDROL, 00:00: SEE-INSTRU Dejuan as DENZEL,) 4 mg 00 CTIONS. Medica l tablets follow Branch package directions methylPREDN 2018-0 Yes [id number] Take by Univers ISolone 7-22 mouth ity of (MEDROL, 00:00: SEE-INSTRU Dejuan as DENZEL,) 4 mg 00 CTIONS. Medica l tablets follow Branch package directions methylPREDN 2018-0 Yes [id number] Take by [facility] ISolone 7-22 mouth ity of (MEDROL, 00:00: SEE-INSTRU Dejuan as DENZEL,) 4 mg 00 CTIONS. Medica l tablets follow Branch package directions cyclobenzap 2018- Yes [id number] 10mg Take 1 [facility] r[facility] 10 mg 7-22 tablet by ity of tablet 00:00: mouth 3 [place] 00 (three) Medical times Branch daily. cyclobenzap 2018-2021- No [id number] 10mg Take 1 [facility] r[facility] 10 mg 7-22 11-21 tablet by ity of tablet 00:00: 00:00 mouth 3 [place] 00 :00 (three) Medical times Branch daily. cyclobenzap 2021- No [id number] 10mg Take 1 [facility] r[facility] 10 mg 7-22 11-21 tablet by ity of tablet 00:00: 00:00 mouth 3 [place] 00 :00 (three) Medical times Branch daily. furosemide Yes 40mg Take 40 mg U nivers (LASIX) 40 1-03 by mouth ity o f mg tablet 21:51: daily. [address] KCL (K-DUR) Yes 1{tbl} Take 1 Tab Univers 20 mEq 1-03 by mouth ity of tablet 21:51: daily. [address] Branch aspirin 81 Yes 81mg Take 81 mg U nivers mg EC 1-03 by mouth ity of tablet 21:51: daily. [address] glucosamine Yes 2{tbl} Take 2 Un zohra -D3-[place] 1-03 tablets by it y of ia serr 21:51: mouth [place] (OSTEO 43 daily. Medical BI-FLEX, Branch 5-LOXIN,) 1,500-400-1 00 mg-unit-mg Tab Cholecalcif Yes 1000U Take 1,000 Univers mathew, 1-03 Units by ity of Vitamin D3, 21:51: mouth [place] (VITAMIN 43 daily. Medical D3) 1,000 Branch unit capsule krill-omega Yes 300mg Take 300 U nivers -3-dha-epa- 1-03 mg by ity of lipids 21:51: mouth [place] (KRILL OIL) 43 daily. Medica l 300-90-24-5 Branch 0 mg Cap TURMERIC Yes 750mg Take 750 Univ ers (CURCUMIN 1-03 mg by ity of MISC) 21:51: mouth [place] 43 daily. Medical Branch methotrexat Yes 7.5mg Take 7.5 U nivers e 2.5 mg 1-03 mg by ity of tablet 21:51: mouth [place] 43 weekly. Medical Branch furosemide Yes 40mg Take 40 mg U nivers (LASIX) 40 1-03 by mouth ity o f mg tablet 15:51: daily. [address] KCL (K-DUR) Yes 1{tbl} Take 1 Tab Univers 20 mEq 1-03 by mouth ity of tablet 15:51: daily. [address] Branch aspirin 81 2017-0 Yes 81mg Take 81 mg U nivers mg EC 1-03 by mouth ity of tablet 15:51: daily. [address] Branch glucosamine 2017-0 Yes 2{tbl} Take 2 Un zohra -D3-Pro 1-03 tablets by it y of ia serr 15:51: mouth [place] (OSTEO 43 daily. Medical BI-FLEX, Branch 5-LOXIN,) 1,500-400-1 00 mg-unit-mg Tab Cholecalcif 20180 Yes 1000U Take 1,000 Univers mathew, 1-03 Units by ity of Vitamin D3, 15:51: mouth [place] (VITAMIN 43 daily. Medical D3) 1,000 Branch unit capsule krill-omega 0 Yes 300mg Take 300 U nivers -3-dha-epa- 1-03 mg by ity of lipids 15:51: mouth [place] (KRILL OIL) 43 daily. Medica l 300-90-24-5 Branch 0 mg Cap TURMERIC 0 Yes 750mg Take 750 Univ ers (CURCUMIN 1-03 mg by ity of MISC) 15:51: mouth [place] 43 daily. Medical Branch methotrexat 0 Yes 7.5mg Take 7.5 U nivers e 2.5 mg 1-03 mg by ity of tablet 15:51: mouth [place] 43 weekly. [facility] Branch furosemide 0 Yes 40mg Take 40 mg U nivers (LASIX) 40 1-03 by mouth ity o f mg tablet 15:51: daily. [address] Branch KCL (K-DUR) 0 Yes 1{tbl} Take 1 Tab Univers 20 mEq 1-03 by mouth ity of tablet 15:51: daily. [address] Branch aspirin 81 0 Yes 81mg Take 81 mg U nivers mg EC 1-03 by mouth ity of tablet 15:51: daily. [place] [id number] Medical Branch glucosamine 2017-0 Yes 2{tbl} Take 2 Un zohra -D3-Pro 1-03 tablets by it y of ia serr 15:51: mouth [place] (OSTEO 43 daily. Medical BI-FLEX, Branch 5-LOXIN,) 1,500-400-1 00 mg-unit-mg Tab Cholecalcif 2018-0 Yes 1000U Take 1,000 Univers mathew, 1-03 Units by ity of Vitamin D3, 15:51: mouth [place] (VITAMIN 43 daily. Medical D3) 1,000 Branch unit capsule krill-omega Yes 300mg Take 300 U nivers -3-dha-epa- 1-03 mg by ity of lipids 15:51: mouth [place] (KRILL OIL) 43 daily. Medica l 300-90-24-5 Branch 0 mg Cap TURMERIC 0 Yes 750mg Take 750 Univ ers (CURCUMIN 1-03 mg by ity of MISC) 15:51: mouth [place] 43 daily. Medical Branch methotrexat Yes 7.5mg Take 7.5 U nivers e 2.5 mg 1-03 mg by ity of tablet 15:51: mouth [place] 43 weekly. Medical Branch furosemide Yes 40mg Take 40 mg U nivers (LASIX) 40 1-03 by mouth ity o f mg tablet 15:51: daily. [address] KCL (K-DUR) Yes 1{tbl} Take 1 Tab Univers 20 mEq 1-03 by mouth ity of tablet 15:51: daily. [address] Branch aspirin 81 Yes 81mg Take 81 mg U nivers mg EC 1-03 by mouth ity of tablet 15:51: daily. [address] Branch glucosamine Yes 2{tbl} Take 2 Un zohra -D3-Pro 1-03 tablets by it y of ia serr 15:51: mouth [place] (OSTEO 43 daily. Medical BI-FLEX, Branch 5-LOXIN,) 1,500-400-1 00 mg-unit-mg Tab Cholecalcif Yes 1000U Take 1,000 Univers mathew, 1-03 Units by ity of Vitamin D3, 15:51: mouth [place] (VITAMIN 43 daily. Medical D3) 1,000 Branch unit capsule krill-omega Yes 300mg Take 300 U nivers -3-dha-epa- 1-03 mg by ity of lipids 15:51: mouth [place] (KRILL OIL) 43 daily. Medica l 300-90-24-5 Branch 0 mg Cap TURMERIC 20180 Yes 750mg Take 750 Univ ers (CURCUMIN 1-03 mg by ity of MISC) 15:51: mouth [place] 43 daily. Medical Branch methotrexat Yes 7.5mg Take 7.5 U nivers e 2.5 mg 1-03 mg by ity of tablet 15:51: mouth [place] 43 weekly. Medical Branch furosemide 0 Yes 40mg Take 40 mg U nivers (LASIX) 40 1-03 by mouth ity o f mg tablet 15:51: daily. [address] KCL (K-DUR) Yes 1{tbl} Take 1 Tab Univers 20 mEq 1-03 by mouth ity of tablet 15:51: daily. [address] Branch aspirin 81 Yes 81mg Take 81 mg U nivers mg EC 1-03 by mouth ity of tablet 15:51: daily. [address] glucosamine Yes 2{tbl} Take 2 Un zohra -D3-[place] 1-03 tablets by it y of ia serr 15:51: mouth [place] (OSTEO 43 daily. Medical BI-FLEX, Branch 5-LOXIN,) 1,500-400-1 00 mg-unit-mg Tab Cholecalcif Yes 1000U Take 1,000 Univers mathew, 1-03 Units by ity of Vitamin D3, 15:51: mouth [place] (VITAMIN 43 daily. Medical D3) 1,000 Branch unit capsule krill-omega Yes 300mg Take 300 U nivers -3-dha-epa- 1-03 mg by ity of lipids 15:51: mouth [place] (KRILL OIL) 43 daily. Medica l 300-90-24-5 Branch 0 mg Cap TURMERIC Yes 750mg Take 750 Univ ers (CURCUMIN 1-03 mg by ity of MISC) 15:51: mouth [place] 43 daily. Medical Branch methotrexat Yes 7.5mg Take 7.5 U nivers e 2.5 mg 1-03 mg by ity of tablet 15:51: mouth [place] 43 weekly. Medical Branch POWDER COAT PAINTER THYROID 2016- Yes Univers 30 mg 2-05 ity of tablet 00:00: [place] 00 [facility] Branch POWDER COAT PAINTER THYROID 2017- Yes Univers 30 mg 2-05 ity of tablet 00:00: [place] 00 [facility] POWDER COAT PAINTER THYROID 2017- Yes Univers 30 mg 2-05 ity of tablet 00:00: [place] 00 [facility] Branch POWDER COAT PAINTER THYROID 2017- Yes Univers 30 mg 2-05 ity of tablet 00:00: [place] [facility] POWDER COAT PAINTER THYROID 2016-02 Yes Univers 30 mg 2-05 ity of tablet 00:00: [place] [facility] POWDER COAT PAINTER THYROID 2016-2021- No Univer s 30 mg 2-05 10-25 ity of tablet 00:00: 00:00 [place] 00 : Medical Branch POWDER COAT PAINTER THYROID 2016-2021- No Univer s 30 mg 2-05 10-25 ity of tablet 00:00: 00:00 [place] 00 :00 Medical Branch potassium 2015-02 Yes TAKE 1 Method i chloride 20 -[address] mEq tablet 00:00: (40 MEQ) [facility] extended 00 BY MOUTH l release DAILY lisdexamfet Yes 30mg Take 30 mg Univers amine 7-21 by mouth ity of (VYVANSE) 00:00: daily. [place] 30 mg Medical capsule Branch lisdexamfet Yes 30mg Take 30 mg Univers amine 7-21 by mouth ity of (VYVANSE) 00:00: daily. [place] 30 mg Medical capsule Branch lisdexamfet Yes 30mg Take 30 mg Univers amine 7-21 by mouth ity of (VYVANSE) 00:00: daily. [place] 30 mg Medical capsule Branch lisdexamfet Yes 30mg Take 30 mg Univers amine 7-21 by mouth ity of (VYVANSE) 00:00: daily. [place] 30 mg Medical capsule Branch lisdexamfet 0 Yes 30mg Take 30 mg Univers amine 30 mg 7-21 by mouth ity of capsule 00:00: daily. [place] [facility] lisdexamfet 0 Yes 30mg Take 30 mg Univers amine 30 mg 7-21 by mouth ity of capsule 00:00: daily. [place] [facility] lisdexamfet 0 Yes 30mg Take 30 mg Univers amine 30 mg 7-21 by mouth ity of capsule 00:00: daily. [place] [facility] lisdexamfet 0 Yes 30mg Take 30 mg Univers amine 30 mg 7-21 by mouth ity of capsule 00:00: daily. [place] [facility] lisdexamfet 0 Yes 30mg Take 30 mg Univers amine 30 mg 7-21 by mouth ity of capsule 00:00: daily. [place] 00 Medical Branch lisdexamfet Yes 30mg Take 30 mg Univers amine 7-21 by mouth ity of (VYVANSE) 00:00: daily. [place] 30 mg 00 [facility] Branch lisdexamfet 2021- No 30mg Take 30 mg Univers amine 30 mg 7-21 11-21 by mouth ity of capsule 00:00: 00:00 daily. [place] 00 :00 Medical Branch lisdexamfet 2021- No 30mg Take 30 mg Univers amine 30 mg 7-21 11-21 by mouth ity of capsule 00:00: 00:00 daily. [place] 00 :00 Medical Branch metOLazone 2015-0 Yes 5mg Take 5 mg Un zohra 5 mg tablet 7-07 by mouth ity of 00:00: daily. [place] [facility] metOLazone 2015-0 Yes 5mg Take 5 mg Un zohra 5 mg tablet 7-07 by mouth ity of 00:00: daily. [place] [facility] metOLazone 2015-0 Yes 5mg Take 5 mg Un zohra 5 mg tablet 7-07 by mouth ity of 00:00: daily. [place] [facility] metOLazone 0 Yes 5mg Take 5 mg Un zohra 5 mg tablet 7-07 by mouth ity of 00:00: daily. [place] [facility] metOLazone 2015-0 Yes 5mg Take 5 mg Un zohra 5 mg tablet 7-07 by mouth ity of 00:00: daily. [place] [facility] metOLazone 2015-0 Yes 5mg Take 5 mg Un zohra 5 mg tablet 7-07 by mouth ity of 00:00: daily. [place] [facility] metOLazone 2016-0 Yes 5mg Take 5 mg Un zohra 5 mg tablet 7-07 by mouth ity of 00:00: daily. [place] [facility] metOLazone 2015-0 Yes 5mg Take 5 mg Un zohra 5 mg tablet 7-07 by mouth ity of 00:00: daily. [place] [facility] metOLazone 2015-0 Yes 5mg Take 5 mg Un zohra 5 mg tablet 7-07 by mouth ity of 00:00: daily. [place] [facility] metOLazone 2015-0 Yes 5mg Take 5 mg Un zohra 5 mg tablet 7-07 by mouth ity of 00:00: daily. [place] 00 Medical Branch metolazone Yes 1 ORAL Metho di (ZAROXOLYN) 09-[address] 5 MG tablet 00:00: Hospit [facility] 00 l metOLazone 2021- No 5mg Take 5 mg U nivers 5 mg tablet 09-03 by mouth ity of 00:00: 00:00 daily. [place] 00 :00 Medical Branch metOLazone 2021- No 5mg Take 5 mg U nivers 5 mg tablet 09-03 by mouth ity of 00:00: 00:00 daily. [place] 00 :00 Medical Branch venlafaxine Yes 150mg Take 150 U nivers XR 150 mg 6-04 mg by ity of 24 hr 00:00: mouth [place] capsule 00 daily. Medical Branch venlafaxine Yes 150mg Take 150 U nivers XR 150 mg 6-04 mg by ity of 24 hr 00:00: mouth [place] capsule 00 daily. Medical Branch venlafaxine Yes 150mg Take 150 U nivers XR 150 mg 6-04 mg by ity of 24 hr 00:00: mouth [place] capsule 00 daily. Medical Branch venlafaxine Yes 150mg Take 150 U nivers XR 150 mg 6-04 mg by ity of 24 hr 00:00: mouth [place] capsule 00 daily. Medical Branch venlafaxine Yes 150mg Take 150 U nivers XR 150 mg 6-04 mg by ity of 24 hr 00:00: mouth [place] capsule 00 daily. Medical Branch venlafaxine 0 Yes 150mg Take 150 U nivers XR 150 mg 6-04 mg by ity of 24 hr 00:00: mouth [place] capsule 00 daily. Medical Branch venlafaxine 0 Yes 150mg Take 150 U nivers XR 150 mg 6-04 mg by ity of 24 hr 00:00: mouth [place] capsule 00 daily. [facility] Branch venlafaxine 0 Yes 150mg Take 150 U nivers XR 150 mg 6-04 mg by ity of 24 hr 00:00: mouth [place] capsule 00 daily. [facility] Branch venlafaxine 0 Yes 150mg Take 150 U nivers XR 150 mg 6-04 mg by ity of 24 hr 00:00: mouth [place] capsule 00 daily. [facility] Branch venlafaxine Yes 150mg Take 150 U nivers XR 150 mg 6-04 mg by ity of 24 hr 00:00: mouth [place] capsule 00 daily. [facility] venlafaxine Yes 150mg Take 150 U nivers XR 150 mg 6-04 mg by ity of 24 hr 00:00: mouth [place] capsule 00 daily. [facility] Branch venlafaxine Yes 150mg Take 150 U nivers XR 150 mg 6-04 mg by ity of 24 hr 00:00: mouth [place] capsule 00 daily. [facility] venlafaxine Yes 150mg Take 150 U nivers XR 150 mg 6-04 mg by ity of 24 hr 00:00: mouth [place] capsule 00 daily. [facility] venlafaxine Yes 150mg Take 150 U nivers XR 150 mg 6-04 mg by ity of 24 hr 00:00: mouth [place] capsule 00 daily. [facility] venlafaxine Yes 150mg Take 150 U nivers XR 150 mg 6-04 mg by ity of 24 hr 00:00: mouth [place] capsule 00 daily. [facility] venlafaxine Yes 150mg Take 150 U nivers XR 150 mg 6-04 mg by ity of 24 hr 00:00: mouth [place] capsule 00 daily. [facility] venlafaxine Yes 150mg Take 150 U nivers XR 150 mg 6-04 mg by ity of 24 hr 00:00: mouth [place] capsule 00 daily. [facility] venlafaxine Yes 150mg Take 150 U nivers XR 150 mg 6-04 mg by ity of 24 hr 00:00: mouth [place] capsule 00 daily. [facility] venlafaxine Yes 150mg Take 150 U nivers XR 150 mg 6-04 mg by ity of 24 hr 00:00: mouth [place] capsule 00 daily. [facility] venlafaxine Yes 150mg Take 150 U nivers XR 150 mg 6-04 mg by ity of 24 hr 00:00: mouth [place] capsule 00 daily. [facility] venlafaxine Yes 150mg Take 150 U nivers XR 150 mg 6-04 mg by ity of 24 hr 00:00: mouth [place] capsule 00 daily. [facility] venlafaxine Yes 150mg Take 150 U nivers XR 150 mg 6-04 mg by ity of 24 hr 00:00: mouth [place] capsule 00 daily. Medical Branch venlafaxine 2016-0 Yes QD Take by Met hodi XR 6-[address] (EFFEXOR-XR 00:00: daily. [facility] ) 150 MG 24 00 l hr capsule propranolol 2016-0 Yes 20mg Take 20 mg Univers 20 mg 6-01 by mouth ity of tablet 00:00: daily. [address] propranolol 2016-0 Yes 20mg Take 20 mg Univers 20 mg 6-01 by mouth ity of tablet 00:00: daily. [address] propranolol 2016-0 Yes 20mg Take 20 mg Univers 20 mg 6-01 by mouth ity of tablet 00:00: daily. [address] propranolol 2016-0 Yes 20mg Take 20 mg Univers 20 mg 6-01 by mouth ity of tablet 00:00: daily. [address] propranolol 2016-0 Yes 20mg Take 20 mg Univers 20 mg 6-01 by mouth ity of tablet 00:00: daily. [address] propranolol 2016-0 Yes 20mg Take 20 mg Univers 20 mg 6-01 by mouth ity of tablet 00:00: daily. [address] propranolol 2016-0 Yes 20mg Take 20 mg Univers 20 mg 6-01 by mouth ity of tablet 00:00: daily. [address] propranolol 2016-0 Yes 20mg Take 20 mg Univers 20 mg 6-01 by mouth ity of tablet 00:00: daily. [address] propranolol 2016-0 Yes 20mg Take 20 mg Univers 20 mg 6-01 by mouth ity of tablet 00:00: daily. [address] propranolol 2016-0 Yes 20mg Take 20 mg Univers 20 mg 6-01 by mouth ity of tablet 00:00: daily. [address] propranolol 2016-0 Yes 20mg Take 20 mg Univers 20 mg 6-01 by mouth ity of tablet 00:00: daily. [address] propranolol 2016-0 Yes 20mg Take 20 mg Univers 20 mg 6-01 by mouth ity of tablet 00:00: daily. [address] propranolol 2016-0 Yes 20mg Take 20 mg Univers 20 mg 6-01 by mouth ity of tablet 00:00: daily. [address] propranolol 2016-0 Yes 20mg Take 20 mg Univers 20 mg 6-01 by mouth ity of tablet 00:00: daily. [place] [facility] propranolol 2016-0 Yes 20mg Take 20 mg Univers 20 mg 6-01 by mouth ity of tablet 00:00: daily. [place] [facility] propranolol 2016-0 Yes 20mg Take 20 mg Univers 20 mg 6-01 by mouth ity of tablet 00:00: daily. [place] [facility] propranolol 2016-0 Yes 20mg Take 20 mg Univers 20 mg 6-01 by mouth ity of tablet 00:00: daily. [place] [facility] propranolol 2016-0 Yes 20mg Take 20 mg Univers 20 mg 6-01 by mouth ity of tablet 00:00: daily. [place] [facility] propranolol 2016-0 Yes 20mg Take 20 mg Univers 20 mg 6-01 by mouth ity of tablet 00:00: daily. [place] [facility] propranolol 2016-0 Yes 20mg Take 20 mg Univers 20 mg 6-01 by mouth ity of tablet 00:00: daily. [place] [facility] propranolol 2016-0 Yes 20mg Take 20 mg Univers 20 mg 6-01 by mouth ity of tablet 00:00: daily. [place] [facility] propranolol 2016-0 Yes 20mg Take 20 mg Univers 20 mg 6-01 by mouth ity of tablet 00:00: daily. [place] [facility] propranolol 2016-0 Yes 20mg QD Take 20 mg [facility] (INDERAL) 6-[address] 20 MG 00:00: once [facility] tablet 00 daily. l propranolol Yes 20mg Take 1 Univ ers (INDERAL) 6-01 tablet (20 ity of 20 mg 00:00: mg) by [place] tablet 00 mouth MD daily. [facility] foLIC acid Yes TAKE 1 Unive rs (FOLATE) 1 8-27 TABLET ity of mg tablet 00:00: DAILY [address] foLIC acid Yes TAKE 1 Unive rs (FOLATE) 1 8-27 TABLET ity of mg tablet 00:00: DAILY [address] foLIC acid Yes TAKE 1 Unive rs (FOLATE) 1 8-27 TABLET ity of mg tablet 00:00: DAILY [address] foLIC acid Yes TAKE 1 Unive rs (FOLATE) 1 8-27 TABLET ity of mg tablet 00:00: DAILY [address] foLIC acid Yes TAKE 1 Unive rs (FOLATE) 1 8-27 TABLET ity of mg tablet 00:00: DAILY [facility] foLIC acid Yes TAKE 1 Unive rs (FOLATE) 1 8-27 TABLET ity of mg tablet 00:00: DAILY [facility] foLIC acid Yes TAKE 1 Unive rs (FOLATE) 1 8-27 TABLET ity of mg tablet 00:00: DAILY [facility] foLIC acid Yes TAKE 1 Unive rs (FOLATE) 1 8-27 TABLET ity of mg tablet 00:00: DAILY [facility] foLIC acid Yes TAKE 1 Unive rs (FOLATE) 1 8-27 TABLET ity of mg tablet 00:00: DAILY [facility] foLIC acid Yes TAKE 1 Unive rs (FOLATE) 1 8-27 TABLET ity of mg tablet 00:00: DAILY [facility] foLIC acid 2021- No TAKE 1 Univ ers (FOLATE) 1 8-27 11-21 TABLET ity of mg tablet 00:00: 00:00 DAILY [place] 00 [facility] foLIC acid 2021- No TAKE 1 Univ ers (FOLATE) 1 827 11-21 TABLET ity of mg tablet 00:00: 00:00 DAILY [place] 00 : [facility] Immunizations Ordered Filled Immunization Date Status Comments [facility] e Immunization Name Name Influenza Virus 2021-11-28 Completed Universit y of Vaccine 00:00:00 [facility] Influenza Virus 2021-11-28 Completed Universit y of Vaccine 00:00:00 [facility] Influenza Virus 2021-11-28 Completed Universit y of Vaccine 00:00:00 [facility] Influenza Virus 2021-11-28 Completed Universit y of Vaccine 00:00:00 [facility] Influenza Virus 2021-11-28 Completed Universit y of Vaccine 00:00:00 [facility] Influenza Virus 2021-11-28 Completed Universit y of Vaccine 00:00:00 [facility] Influenza Virus 2021-11-28 Completed Universit y of Vaccine 00:00:00 [facility] Influenza Virus 2021-11-28 Completed Universit y of Vaccine 00:00:00 [facility] Influenza Virus 2021-11-28 Completed Universit y of Vaccine 00:00:00 [facility] Influenza Virus 2021-11-28 Completed Universit y of Vaccine 00:00:00 [facility] Influenza Virus 2021-11-28 Completed Universit y of Vaccine 00:00:00 [facility] Influenza Virus 2021-11-28 Completed Universit y of Vaccine 00:00:00 [facility] SARS-COV-2 COVID-19 2020-05-09 Completed Unive rsity of CASSIDY/J&J VACCINE 00:00:00 [facility] SARS-COV-2 COVID-19 2020-05-09 Completed Unive rsity of CASSIDY/J&J VACCINE 00:00:00 [facility] SARS-COV-2 COVID-19 2020-05-09 Completed Unive rsity of CASSIDY/J&J VACCINE 00:00:00 [facility] SARS-COV-2 COVID-19 2020-05-09 Completed Unive rsity of CASSIDY/J&J VACCINE 00:00:00 [facility] SARS-COV-2 COVID-19 2020-05-09 Completed Unive rsity of CASSIDY/J&J VACCINE 00:00:00 [facility] SARS-COV-2 COVID-19 2020-05-09 Completed Unive rsity of CASSIDY/J&J VACCINE 00:00:00 [facility] SARS-COV-2 COVID-19 2020-05-09 Completed Unive rsity of CASSIDY/J&J VACCINE 00:00:00 [facility] SARS-COV-2 COVID-19 2020-05-09 Completed Unive rsity of CASSIDY/J&J VACCINE 00:00:00 [facility] SARS-COV-2 COVID-19 2020-05-09 Completed Unive rsity of CASSIDY/J&J VACCINE 00:00:00 [facility] SARS-COV-2 COVID-19 2020-05-09 Completed Unive rsity of CASSIDY/J&J VACCINE 00:00:00 [facility] SARS-COV-2 COVID-19 2020-05-09 Completed Unive rsity of CASSIDY/J&J VACCINE 00:00:00 [facility] SARS-COV-2 COVID-19 2020-05-09 Completed Unive rsity of CASSIDY/J&J VACCINE 00:00:00 [facility] SARS-COV-2 COVID-19 2020-05-09 Completed Unive rsity of CASSIDY/J&J VACCINE 00:00:00 [facility] SARS-COV-2 COVID-19 2020-05-09 Completed Unive rsity of CASSIDY/J&J VACCINE 00:00:00 [facility] SARS-COV-2 COVID-19 2020-05-09 Completed Unive rsity of CASSIDY/J&J VACCINE 00:00:00 [facility] SARS-COV-2 COVID-19 2020-05-09 Completed Unive rsity of CASSIDY/J&J VACCINE 00:00:00 [facility] SARS-COV-2 COVID-19 2020-05-09 Completed Unive rsity of CASSIDY/J&J VACCINE 00:00:00 [facility] SARS-COV-2 COVID-19 2020-05-09 Completed Unive rsity of CASSIDY/J&J VACCINE 00:00:00 [facility] SARS-COV-2 COVID-19 2020-05-09 Completed Unive rsity of CASSIDY/J&J VACCINE 00:00:00 [facility] SARS-COV-2 COVID-19 2020-05-09 Completed Unive rsity of CASSIDY/J&J VACCINE 00:00:00 [facility] SARS-COV-2 COVID-19 2020-05-09 Completed Unive rsity of CASSIDY/J&J VACCINE 00:00:00 [facility] TDAP 2020-05-04 Completed University of 00:00:00 [facility] TDAP 2020-05-04 Completed University of 00:00:00 [facility] TDAP 2020-05-04 Completed University of 00:00:00 [facility] TDAP 2020-05-04 Completed University of 00:00:00 [facility] TDAP 2020-05-04 Completed University of 00:00:00 [facility] TDAP 2020-05-04 Completed University of 00:00:00 [facility] TDAP 2020-05-04 Completed University of 00:00:00 [facility] TDAP 2020-05-04 Completed University of 00:00:00 [facility] TDAP 2020-05-04 Completed University of 00:00:00 [facility] TDAP 2020-05-04 Completed University of 00:00:00 [facility] TDAP 2020-05-04 Completed University of 00:00:00 [facility] TDAP 2020-05-04 Completed University of 00:00:00 [place] [facility] TDAP 2020-05-04 Completed University of 00:00:00 [place] [facility] TDAP 2020-05-04 Completed University of 00:00:00 [place] [facility] TDAP 2020-05-04 Completed University of 00:00:00 [place] [facility] TDAP 2020-05-04 Completed University of 00:00:00 [place] [facility] TDAP 2020-05-04 Completed University of 00:00:00 [place] [facility] TDAP 2020-05-04 Completed University of 00:00:00 [place] [facility] TDAP 2020-05-04 Completed University of 00:00:00 [place] [facility] TDAP 2020-05-04 Completed University of 00:00:00 [place] [facility] TDAP 2020-05-04 Completed University of 00:00:00 [facility] TDAP 2020-05-04 Completed University of 00:00:00 [facility] Vital Signs Vital Name Observation Time Observation Value Comments Source Systolic blood 2022-01-18 17:11:00 129 mm[Hg] Univer sity of pressure [facility] Diastolic blood 2022-01-18 17:11:00 78 mm[Hg] Unive rsity of pressure [facility] Heart rate 2022-01-18 17:10:00 64 /min [facility] Body temperature 2022-01-18 17:10:00 36.83 Sade [facility] Body height 2022-01-18 17:10:00 167.6 cm [facility] Body weight 2022-01-18 17:10:00 82.555 kg [facility] BMI 2022-01-18 17:10:00 29.38 kg/m2 [facility] Oxygen saturation in 2022-01-18 17:10:00 96 /min [facility] Arterial blood by [facility] Pulse oximetry Branch Systolic blood 2022-01-05 21:14:00 169 mm[Hg] Univer sity of pressure [facility] Diastolic blood 2022-01-05 21:14:00 89 mm[Hg] Unive rsity of pressure [facility] Heart rate 2022-01-05 21:11:00 79 /min [facility] Body height 2022-01-05 21:11:00 167.6 cm Universi ty of [facility] Branch Body weight 2022-01-05 21:11:00 81.194 kg Universi ty of [facility] BMI 2022-01-05 21:11:00 28.89 kg/m2 Universi ty of [facility] Oxygen saturation in 2022-01-05 21:11:00 95 /min University of Arterial blood by [facility] rogelio Pulse oximetry Branch Systolic blood 2021-12-22 18:49:00 152 mm[Hg] Univer sity of pressure [facility] Diastolic blood 2021-12-22 18:49:00 85 mm[Hg] Unive rsity of pressure [facility] Heart rate 2021-12-22 18:48:00 75 /min [facility]i ty of [facility] Body weight 2021-12-22 18:48:00 83.689 kg [facility]i [facility] BMI 2021-12-22 18:48:00 30.70 kg/m2 [facility]i ty of [facility] Oxygen saturation in 2021-12-22 18:48:00 95 /min University of Arterial blood by [facility] Pulse oximetry Branch Systolic blood 2022-02-05 16:45:48 125 mm[Hg] Univer sity of pressure [facility] Diastolic blood 2022-02-05 16:45:48 71 mm[Hg] Unive rsity of pressure [facility] Heart rate 2022-02-05 16:45:48 63 /min Universi ty [facility] Respiratory rate 2022-02-05 16:45:48 17 /min Univ ersity of [facility] Oxygen saturation in 2022-02-05 16:15:13 92 /min University of Arterial blood by [facility] Pulse oxim[facility] Body temperature 2022-02-05 14:22:26 36.89 Sade Univ ersjones of [facility] Body height 2022-02-05 14:22:26 164.6 cm Universi ty [facility] Body weight 2022-02-05 14:22:26 84 kg [facility]i [facility] BMI 2022-02-05 14:22:26 31.00 kg/m2 Universi ty [facility] Systolic (mm Hg) 2018-12-26 21:07:00 Chivo rial Mark Diastolic (mm Hg) 2018-12-26 21:07:00 Mem orial Mark Heart Rate 2018-12-26 21:07:00 [facility] Respitory Rate 2018-12-26 21:07:00 Memori al Mark Height 2018-12-26 21:07:00 162.56 cm [facility] [place] Weight 2018-12-26 21:07:00 [facility] BMI Calculated 2018-12-26 21:07:00 Memori al Mark Systolic (mm Hg) 2018-11-02 19:59:00 Chivo rial Mark Diastolic (mm Hg) 2018-11-02 19:59:00 Mem orial Mark Heart Rate 2018-11-02 19:59:00 [facility] [place] Respitory Rate 2018-11-02 19:59:00 Memori al Mark Height 2018-11-02 19:59:00 165.1 cm [facility] [place] Weight 2018-11-02 19:59:00 [facility] BMI Calculated 2018-11-02 19:59:00 Memori al Mark Procedures Procedure Date / Time Performing Clinician Source Performed EXTERNAL PROVIDER RECORDS 2022-03-08 06:01:00 Doctor Unassigned, [facility] EXTERNAL PROVIDER RECORDS 2022-02-16 06:01:00 Doctor Unassigned, [facility] US HEAD NECK SOFT TISSUE 2022-02-05 17:45:00 Flora Alonzo [facility] US FINE NEEDLE ASPIRATION 2022-02-05 17:45:00 Flora Alonzo [facility] THYROID PEROXIDASE 2022-02-05 17:43:00 Sylvia Serrano [facility] ANTIBODY [facility] HEPATITIS C VIRUS 2022-02-05 17:43:00 Flora Alonzo [facility] ANTIBODY [facility] THYROID STIMULATING 2022-02-05 17:43:00 Flora Alonzo [facility] HORMONE [facility] FREE THYROXINE 2022-02-05 17:43:00 Flora Alonzo [facility] CYTOLOGY IMAGE-GUIDED FNA 2022-02-05 16:19:00 Flora Alonzo [facility] INTERPRETATION [facility] MEDICAL RELEASE/CLEARANCE 2022-01-18 06:01:00 Doctor Unassigned, [facility] FORMS [facility] OSI US THYROID 2021-12-29 16:52:00 Sylvia Serrano [facility] ASSIGNMENT OF BENEFITS 2021-12-22 18:30:56 Doctor Unassigned, [facility] Plan of Care Planned Activity Planned Date Details Comments Source Future Scheduled 2022-03-02 COVID-19 Vaccination [facility] Test 11:05:03 (2 - Booster for [facility] Cancer Cassidy series) [code Center = COVID-19 Vaccination (2 - Booster for Cassidy series)] Future Scheduled 2022-02-19 COVID-19 VACCINE (#1) [facility] Test 21:42:52 [code = COVID-19 VACCINE (#1)] Future Scheduled 2022-02-19 Screening for [facility] Test 21:42:52 malignant neoplasm of cervix (procedure) [code = 169966147] Future Scheduled 2022-02-19 BREAST CANCER [facility] Test 21:42:52 SCREENING [code = BREAST CANCER SCREENING] Future Scheduled 2022-02-19 COLONOSCOPY SCREENING [facility] Test 21:42:52 [code = COLONOSCOPY SCREENING] Future Scheduled 2022-02-19 SHINGLES VACCINES (1 Met [facility] Test 21:42:52 of 2) [code = SHINGLES VACCINES (1 of 2)] Future Scheduled 2022-02-19 HEPATITIS B VACCINES Met [facility] Test 21:42:52 (1 of 3 - Risk 3-dose series) [code = HEPATITIS B VACCINES (1 of 3 - Risk 3-dose series)] Future Scheduled 2022-02-19 INFLUENZA VACCINE [facility] Test 21:42:52 [code = INFLUENZA VACCINE] Future Scheduled 2022-02-19 65+ P[facility]UMOCOCCAL [facility] Test 21:42:52 VACCINE (1 - PCV) [code = 65+ PNEUMOCOCCAL VACCINE (1 - PCV)] Encounters Start End Encounter Admission Attending Care Care Encounter Source Date/Time Date/Time Type Type Clinicians Facility Department ID 2022-01-07 Outpatient SYSTEM, [facility] [id number] 13:09:44 PROVIDER Travon wang 2018-08-14 Outpatient [facility] [address] octavio 16:59:39 l Mark Atkins [facility] 2022-05-18 2022-05-18 [facility] [id number] Univers 13:40:00 13:40:00 CELINA [facility] 2022-03-31 2022-03-31 Outpatient R BAYRON FONTANA [facility] [id number] Univers 15:00:00 15:00:00 BAYRON FONTANA [facility] 2022-03-13 2022-03-13 Outpatient R [facility]INE [facility] [id number] Univers 12:30:00 12:30:00 ANGELICA [facility] 2022-03-08 2022-03-08 Orders Doctor NA 1.2.840.114 [id number] Univers 00:00:00 00:00:00 Only Unassigned, SHIRA 350.1.13.10 ity of [facility] 4.2.7.2.686 Dejuan as [phone] [address] 2022-02-25 2022-02-25 [facility] 1.2.840.114 [id number] Univers 00:00:00 00:00:00 Secure [facility] 350.1.13.10 [facility] 4.2.7.2.686 Dejuan as MICHELA?BLEA [phone] Sd anne[address] MEDICAL OFFICE BUILDING 2022-02-16 2022-02-16 Orders Doctor NA 1.2.840.114 [id number] Univers 00:00:00 00:00:00 Only Unassigned, SHIRA 350.1.13.10 ity [facility] 4.2.7.2.686 Dejuan as [phone] [address] 2022-02-11 2022-02-11 Telephone Florencia, 1.2.840.1 [id number] Univers 00:00:00 00:00:00 Naye 54950.1.1 ity of 3.412.2.7 [place] .3.377506 .8 [facility] 2022-02-09 2022-02-09 Telephone Jb, 1.2.840.1 [id number] Univers 00:00:00 00:00:00 Quan Marci 73116.1.1 ity of 3.412.2.7 [place] .3.185220 .8 [facility] 2022-02-05 2022-02-08 Outpatient [facility] [id number] 14:54:47 [facility]:04 [facility]05 2022-02-05 Outpatient [facility] [id number] 11:30:00 23:59:00 [facility] Travon o n 2022-02-05 2022-02-05 [facility], 1.2.840.1 [id number] [facility] 11:30:00 23:59:00 Encounter Flora Acosta 09208.1.1 ity of 3.412.2.7 [place] .3.419843 .8 [facility] 2022-02-05 2022-02-05 [facility], 1.2.840.1 [id number] [facility] 20:00:00 20:05:00 Procedure Sylvia A 54341.1.1 ity of 3.412.2.7 [place] .3.301804 .8 [facility] 2022-02-05 2022-02-05 Outpatient [facility] TALI [id number] 11:15:00 11:29:00 MOUHAMMED Nahum rso n 2022-02-05 2022-02-05 [facility], 1.2.840.1 [id number] [facility] 11:15:00 11:29:00 Encounter Mokevinammed A 16304.1.1 ity of 3.412.2.7 [place] .3.109495 .8 [facility] [place] 2022-02-05 2022-02-05 Outpatient TALI SERRANO MDA [id number] 11:26:35 11:26:35 ORQUIDEAAZALIA Sidhu rso n 2022-02-05 2022-02-05 Ancillary Cheri, 1.2.840.1 [id number] Univers 09:15:00 11:15:00 Procedure Flora N. 58331.1.1 ity of 3.412.2.7 [place] .3.058423 .8 [facility] Center 2022-02-05 2022-02-05 Outpatient [facility] [id number] 09:32:08 09:32:08 FLORA Meehaners o n 2022-02-05 2022-02-05 Outpatient [facility] [id number] 08:14:51 09:22:06 FLORA Travon o n 2022-02-05 2022-02-05 Office Flora Alonzo Dave 1.2.840.1 [id number] Univers 08:00:00 09:22:06 Visit Sylvia Serrano 37078.1.1 ity of 3.412.2.7 [place] .3.838046 .8 [facility] 2022-02-05 2022-02-05 [facility] 1.2.136.082 [id number] Univers 00:00:00 00:00:00 [facility] 350.1.13.10 ity of [place] 4.2.7.2.686 Dejuan as MICHELA?BLEA [id number] [address] OFFICE [facility] 2022-02-05 2022-02-05 Letter [facility] 1.2.840.114 [id number] Univers 00:00:00 00:00:00 (Out) Celina [facility]ALTH 350.1.13.10 ity of [place] 4.2.7.2.686 Dejuan as MICHELA?BLEA [phone] [address] OFFICE [facility] 2022-02-05 2022-02-05 Travel 1.2.840.1 1.2.180.007 [id number] Univers 00:00:00 00:00:00 53850.1.1 350.1.13.41 ity of 3.412.2.7 2.[place].3.698 [place] .3.184726 084.8 .8 [facility] Cancer Center 2022-02-03 2022-02-03 Outpatient EL ANTOINETTE MDA MDA [id number] 13:50:31 13:50:37 MOUHAMMED Nahum rso n 2022-02-03 2022-02-03 NPR Loretta, 1.2.840.1 [id number] Univers 13:30:00 13:50:37 Mouhammed A 60115.1.1 ity of 3.412.2.7 [place] .3.076765 .8 [facility] 2022-01-27 2022-01-27 [facility] 1.2.840.114 [id number] Univers 00:00:00 00:00:00 [facility] 350.1.13.10 ity of [place] 4.2.7.2.686 Dejuan as MICHELA?BLEA [phone] [address] MEDICAL OFFICE [facility] 2022-01-20 2022-01-20 Telephone [facility] 1.2.096.294 [id number] Univers 00:00:00 00:00:00 [facility] 350.1.13.10 ity of [place] 4.2.7.2.686 Dejuan as MICHELA?BLEA [id number] [address] MEDICAL OFFICE [facility] 2022-01-18 2022-01-18 Outpatient [facility] [id number] Univers 11:20:00 12:04:57 [facility] 2022-01-18 2022-01-18 Office [facility] 1.2.840.114 [id number] Univers 11:20:00 12:04:57 Visit [facility] 350.1.13.10 ity of [place] 4.2.7.2.686 Dejuan as MICHELA?BLEA [id number] [address] MEDICAL OFFICE [facility] 2022-01-18 2022-01-18 Orders Doctor MONZON 1.2.840.114 [id number] Univers 00:00:00 00:00:00 Only Unassigned, SHIRA 350.1.13.10 ity of [facility] 4.2.7.2.686 Dejuan as [phone] [address] 2022-01-18 2022-01-18 Telephone [facility] 1.2.367.498 [id number] Univers 00:00:00 00:00:00 [facility] 350.1.13.10 ity of [place] 4.2.7.2.686 Dejuan as MICHELA?BLEA [phone] Sd zeyad [facility] [address] [place] MEDICAL OFFICE BUILDING 2022-01-15 2022-01-15 Orders Cheri, 1.2.840.1 [id number] Univers 00:00:00 00:00:00 Only Flora Dave 94600.1.1 it y of 3.412.2.7 [place] .3.806432 .8 [facility] 2022-01-12 2022-01-12 Outpatient R ROSHAN [facility] [id number] Univers 13:00:00 13:00:00 MUKUND [facility] 2022-01-05 2022-01-05 Outpatient R YO [facility] [id number] Univers 15:00:00 16:15:33 [facility] ity [facility] 2022-01-05 2022-01-05 Office [facility] 1.2.840.114 [id number] Univers 15:00:00 16:15:33 Visit [facility] 350.1.13.10 it y of [place] 4.2.7.2.686 Dejuan as MICHELA?BLEA [phone] [facility] [address] MEDICAL OFFICE [facility] 2022-01-04 2022-01-04 Telephone [facility] 1.2.168.625 [id number] Univers 00:00:00 00:00:00 [facility] 350.1.13.10 it y of [place] 4.2.7.2.686 Dejuan as MICHELA?BLEA [id number] [facility] [address] MEDICAL OFFICE [facility] 2021-12-22 2021-12-22 Outpatient R YO [facility] [id number] Univers 13:30:00 14:26:16 WENTULYSSES ity [facility] 2021-12-22 2021-12-22 Office [facility] 1.2.840.114 [id number] Univers 13:30:00 14:26:16 Visit [facility] 350.1.13.10 [facility] 4.2.7.2.686 Dejuan as MICHELA?BLEA [phone] [facility] [address] MEDICAL OFFICE [facility] 2021-12-22 2021-12-22 Orders Doctor NA 1.2.840.114 [id number] Univers 00:00:00 00:00:00 Only Unassigned, SHIRA 350.1.13.10 ity of [facility] 4.2.7.2.686 Dejuan as [phone] [address] 2021-12-21 2021-12-21 Telephone [place] [facility] 1.2.685.174 [id number] Univers 00:00:00 00:00:00 Leo HEALTH 350.1.13.10 it y of [place] 4.2.7.2.686 Dejuan as MICHELA?BLEA [phone] [facility] 220 [facility] OFFICE [facility] 2021-04-15 2021-04-15 Telephone NA Mckeon 1.2.878.291 [id number] Univers 00:00:00 00:00:00 Qualiza SILVA 350.1.13.10 ity of HOSPITAL 4.2.7.2.686 Deujan as [phone] [facility] [address] [place] 2021-04-14 2021-04-14 Laboratory Only, Ang Db Test [facility] 1.2.8 40.114 [id number] Univers 12:00:00 12:15:00 Only Mehul Zuleyma HEALTH 350.1.13.10 ity of [place] 4.2.7.2.686 Dejuan as MICHELA?BLEA [id number] [facility] [address] [place] MEDICAL OFFICE [facility] 2021-04-14 2021-04-14 Outpatient R MEHUL [facility] [id number] Univers 12:00:00 12:00:00 ZULEYMA ity of [facility] 2020-10-30 2020-10-30 Outpatient Freda DUNLAP [facility] [id number] Univers 12:00:00 12:00:00 ATTENDING ity [facility] 2020-10-27 2020-10-27 Telephone Team, [facility] NA 1.2.840.114 [id number] Univers 00:00:00 00:00:00 Health [place] 350.1.13.10 it [facility] 4.2.7.2.686 [place] [phone] [facility] [address] [place] 2020-05-15 2020-05-15 Outpatient Freda BLANCHARD [facility] [id number] Univers 14:00:00 14:00:00 [facility] 2020-05-12 2020-05-12 [facility] [id number] [address] [place] [address] 00:00:00 00:00:[address]HEL[address] [facility] 2020-05-08 2020-05-08 Outpatient Freda BLANCHARD [facility] [id number] Univers 15:45:00 15:45:00 [facility] 2020-05-04 2020-05-04 Outpatient Freda BEAR [facility] [id number] Univers 16:00:00 16:00:00 ZULEYMA [facility] 2020-05-02 2020-05-02 Outpatient Freda BLANCHARD [facility] [id number] Univers 08:30:00 08:30:00 [facility] 2020-04-22 2020-04-22 Outpatient R [facility] [id number] Univers 11:45:00 11:45:00 ity [facility] 2020-02-08 2020-02-08 Outpatient Freda BUCIO [facility] [id number] Univers 08:40:00 08:40:00 LYLE [facility] 2019-12-06 2019-12-06 Outpatient Freda BLANCHARD [facility] [id number] Univers 15:30:00 15:30:00 [facility] 2019-10-15 2019-10-15 Outpatient Freda BLANCHARD [facility] [id number] Univers 16:00:00 16:00:00 [facility] 2019-09-05 2019-09-05 Outpatient R [facility] [id number] Univers 10:15:00 10:15:00 [facility] 2019-08-28 2019-08-28 Outpatient ZAKIA [facility] [id number] [place] 00:00:00 00:00:00 NICHELLE 062 Method i 2019-08-28 2019-08-28 Outpatient ZAKIA [facility] [id number] [place] 00:00:00 00:00:00 NICHELLE 855 Method i 2019-08-24 2019-08-25 Outpatient nullFlavo [place] [id number] Memoria 16:34:00 04:59:00 r [place] 78 l [facility] 2019-08-24 2019-08-25 Outpatient nullFlavo [place] [id number] Memoria 16:34:00 04:59:00 r Mark 78 l [facility] 2019-08-24 2019-08-24 [facility] [id number] 11:34:00 23:59:00 Ede Gonzales 2019-08-24 2019-08-24 [facility] [id number] Memoria 11:34:00 11:34:[address] [facility] 2019-04-12 2019-04-12 Office [facility] 1.2.840.114 [id number] 15:30:00 15:45:00 Visit [facility] 350.1.13.10 Surgical 4.2.7.2.686 Specialti [id number] [address] 2019-03-05 2019-03-07 Outside nullFlavo DCA [id number] Memoria 17:56:21 05:59:59 Medical r Neurology 00 l Records [place] 2019-03-05 2019-03-07 Outside nullFlavo MNA [id number] Memoria 17:56:21 05:59:59 Medical r Neurology 00 l Records [place] 2019-03-05 2019-03-06 Outpatient MHMISCHER MHMISCHER [id number] 11:56:21 23:59:59 00 2019-02-27 2019-02-27 Outpatient ZAKIA [facility] [id number] [address] [place] [address] 00:00:00 00:00:00 NICHELLE Archuleta Method i 2019-02-27 2019-02-27 Outpatient ZAKIA [facility] [id number] [place] 00:00:00 00:00:00 NICHELLE Rueda Method i 2019-02-06 2019-02-06 Ambulatory nullFlavo MNA [id number] Memoria 22:00:00 22:00:00 Pre-Reg r Neurology 03 l Jena Mark 2019-02-06 2019-02-06 Ambulatory nullFlavo MNA [id number] Memoria 22:00:00 22:00:00 Pre-Reg r Neurology 03 l Jena Mark 2019-02-06 2019-02-06 Outpatient MHIE MHIE [id number] Memoria 16:00:00 16:00:00 03 [place] Mark 2019-02-06 2019-02-06 Outpatient Cielo MISCHER MISCHER [id number] 16:00:00 16:00:00 Ruddy Evy Malick 2018-12-26 2018-12-27 Outpatient nullFlavo MNA [id number] Memoria 21:00:00 04:59:59 r Neurology 02 peyton [place] 2018-12-26 2018-12-27 Outpatient nullFlavo MNA [id number] Memoria 21:00:00 04:59:59 r Neurology 02 peyton [place] 2018-12-26 2018-12-26 Out[facility] [id number] 16:00:00 23:59:59 Ruddy Mike Malick 2018-12-26 2018-12-26 Outpatient MHIE MHIE [id number] Memoria 16:00:00 16:00:00 02 [place] Mark 2018-12-14 2018-12-14 Ambulatory nullFlavo MNA [id number] Memoria 20:45:00 20:45:00 Pre-Reg r Neurology 01 [place] Mark 2018-12-14 2018-12-14 Ambulatory nullFlavo MNA [id number] Memoria 20:45:00 20:45:00 Pre-Reg r Neurology 01 [place] Mark 2018-12-14 2018-12-14 Outpatient MHIE MHIE [id number] Memoria 15:45:00 15:45:00 01 [place] Flores 2018-12-14 2018-12-14 Outpatient Cielo [facility] [id number] 15:45:00 15:45:00 Ruddy 01 Malick 2018-11-02 2018-11-03 Outpatient nullFlavo MNA [id number] Memoria 20:00:00 04:59:59 r Neurology 00 l Jena Flores 2018-11-02 2018-11-03 Outpatient nullFlavo MNA [id number] Memoria 20:00:00 04:59:59 r Neurology 00 l Jena Elizondoann 2018-11-02 2018-11-02 Outpatient Cielo [facility] [id number] 15:00:00 23:59:59 Ruddy Malick 2018-11-02 2018-11-02 Outpatient [facility] [id number] Memoria 15:00:00 15:00:00 00 l [place] 2018-06-05 2018-06-06 Outpatient [place] [id number] Memoria 20:37:00 04:59:00 r Mark 98 l [facility] 2018-06-05 2018-06-06 Outpatient [place] [id number] Memoria 20:37:00 04:59:00 r Mark 98 l [facility] 2018-06-05 2018-06-05 Outpatient [facility] [id number] 15:37:00 23:59:00 Ede Peyton Rowe 2018-06-05 2018-06-05 Outpatient [facility] [id number] Memoria 15:37:00 15:37:00 l [facility] Results Test Description Test Time Test Comments Results Result Comments Source Thyroid Peroxidase Ab 2022-02-05 20:14:59 Test Item Value Reference Range Interpretation Comme nts TPO AB (test code = 7572) 3.3 See_Comment Du e to varying antigen specificity, affinity and av idity of capture and conjugate antib odies in their epitope reactions, some TPO antibody samples may not dilute line luzmaria when results exceed 750 IU/mL. [Aut omated message] The system which generated this result transmitted reference range : <=8.9 IU/mL. The reference range was not used to interpret this result as normal/abnormal. [facility] Cancer [place] Image-Guided FNA [id number] 19:29:05 Test Item Value Reference Range Interpretation Comments Gross Description (test s0gmzCCpGDNmfYLyQPA code = [id number]) wMlxhbnNpXHNwbHRwZ3 GeczqjHNtrEG0dYZ7xw GxhdHRveWVuXGRlZmYw r7ykt950kPAor1fvBBG QiojguZm5bTqeC81gu7 S6BhvqC5flQKRiTXdiT WEnSHsqcFFtVVi6DPNr cGVydzEyMjQwXHBhcGV sdWU0VURqVB9hlvmcWM tfQDnzOUVnnlS9ALVje SPoT4KiQOGeJH7zzcer RJP2STxpVLYuISF5IcH aQKCyf8Zwjzo5DjJ3HD vpUZZvE9RjT2FlOEooF NA3WNFlYIXuSQSoZW7B UiAiIDExNDQwMTYiIFJ DAVOjKxG7EFz8INRIOE AiICBaMTkxNTgzNSIgT FJSIDEyMzAwMDAwMjQg XFxuaCBcXHQgMSBcXGZ kKLovbkP4k1yoJMEvoQ NpOPP3LIdbyJAhWQSuH DIgXFxkYiBPVlIgIiAx LHF6LRL2SlT5XAm8APM PVlMgIiAgIDUyNDAxMj zdYAy0FHo4JKsRXiBtW bF7JuogGYxqMUI4UHr4 ZHzijtrdDOn8GXWsLJd zcyAzIFxcZmwgXFxuY3 1ccGFyZFxzYjMwXGVwa XBNz9NqVFskqBLvdyxo czIwXGNmMSBTcGVjaW1 tpdCrvFYfI2QzGUX0ZV BhclxwYXJkIDEgRGlmZ xZEoOhyEfS0IPBgpGEH dGFpbiBTbGlkZXNccGF jPDZdHL4gAQQabMOsdB OuiWmtQejxcQA4VSnvV yhhyT0lrBTUIJYFGlpX QiwvjwDnBR5OQHFWVwP GUB70SgC0OkK0LYimpH tcZmxkcnNsdCBcJzFjf C8epBzxoQPcdPDfjB11 MQmqGYLnk6OnT7Qux5e maWVsZHtcKlxmbGRpbn J5ZOlYIDIRXLbSAfYoU I6pXSiJTFVBJQbPVuic fXtcZmxkcnNsdCBcJzF dgW2sxA7aTPz4PSUrWE qtk8dfEDHiQTdmw8UdM AbQROMXVO5KTH2ooYK9 J0zDLVBSINqjaTdyAch bwvHgoJTgNfFrbB7cbV kjhY4cnVCyhGWaaDkbs gJiQTJuPLAgEuq7eDE5 PZPeKUqfn6rnHIEnBIg if6DyOWmAJBKTEO1JGC 0hmBM6FRvXIUVEQZlnP HC5EAqhoGQ5o7vqbFIp p5s6TAojHZC1qItjcSV pblxmczIwXGNmMSAgaW 4gUlBNSVxwYXIgMSBDe RTee6IulrhnINZiiOBg DZWnvnM3BWWjOsO8SDI gQXO7ZSBrPLOfuWokWV Kld8VzWXuayEfpODKiV jVyIP4mPYByBJEbXKMc y7Njo53xwnJaWh8bDOI mLNLzoBYvKKJwXIX4VT Y5CZhybsBkLQEoQGifq y42DQT3v4pwpIMgBYjc JdhyqCFmkrX1PLdWUDD NRAuCKpWhXU2yFQhWG2 FVYQcAWzdvCAx6BNopr DA3i4wsyOCqj5c4LHmw BGN3gYyco0tonFViQKv bJodpdXMbntG6EPnKQF HTELvKSyIdPX3wTLmVZ 2MVCoW4OtY6RxM4W4gh fXtcZmxkcnNsdCBcJzF rbM1duEarzS8iBiVbNX uiRaAsYWK8GJOsFqZIa YO4NYdzk1vvyRyes8Lw kXYvSV97OQKeqWFvIGL 5IE3ztYdsCTRrdtKFDA CHWQbXF5OyOCCUADTID MIuOuLDCX1gHcF5CpB3 HG87DfczNiN8GhZ6dZR 3NHYOCXXWLUzXO6WvVP GKSAJJAIPsKU9KWOwAL PBBXMYDL54WVOCTQIMO B4FPL4tQRDAtm0Jdj31 vzPtEUZTHGGKAZ33GBF FPHAHCA6WHWAHTYNNLN ZpIGJWWGq1XPOOZRPZJ ML1NFRmBQoAfUFymhUF mJRcwQBA4FRn9K1z3mM Xaz7TzgYS2PtB1UtW1K pE4KBEqtKBWGZSAYTnG JKCCIf7VTWHRNYOGPJ3 WHpRpW8BJIW2XTo9OZV OHGVGEYW0OWItLYkErV 8QCVX8BMh4WEUVXDSVU UK9RRwUwVCYUX9UDGoV XU5pwWTRFYRNVRPDxMm GNSU8sCHKPXG7AAFPFU LTDL07LLDBVVHUNS1DL RH0= Immediate Assessment (test Adequate code = 9837) cellularity, favor benign Major Classification (test [facility]/benign code = 9839) Diagnosis (test code = 34) w8iayVTvYVNmuPWzBWT wMlxhbnNpXHNwbHRwZ3 XqokjaNGzmDR4mPU3ua GxhdHRveWVuXGRlZmYw u1mdg229fNHmi3ogCXH SdexhjFl9rQxnK88qu2 C1UbrmL9tyFIVuAYxlX DDvRPkmdALhQUk9LFAm cGVydzEyMjQwXHBhcGV rbKC0EUTcOT4smashZL pyRUzwUTWccpD9MSNma NSvG5PnDCBjGW8hrxiq ZMV6JMoxKIJnSAZ5MtV fNOXba2Teale5SwGqpH m7y2ciFHElIHCwwCuqf 4wjGGG6ZQOsiVXcD3pm vG3nTUAkGJ9eydaeh5f cGXjlJOnyHGGozDE4yr Z7AOMjfKPoU1MzcX3xT ZBlYPJrkmRwxJuozM3c ZnMyMFxjZjFccGFyIFR oeXJvaWQsIGxlZnQgc3 SqRTKic7ZriN0uEZsxE mluZSBuZWVkbGUgYXNw aXJhdGlvbjpccGFyXHR uNveiMXQljSx5NqQoaC reDaYjXExxGYW4cGCmp ixsBtDxCQ0vEYBevr3f hdV9FXLub0fhoXN0kHK pXMapk1zochXzgW97US WwyOx4pUKxcQB7N19kx bkdRUpdiC9cqa1lR36z kU2xAZbfDZHihk7uTJD lbmlnbiBccGFyXHBhcn 0= Comment (test code = 9835) t6tphMNeFAZddGFaMZN pTxh2jYDlt4H2ygusWI 4yhIowoHn9aWjoNXSca tZ0zSEbCKrlb2bdCBO6 j7rcqbmjGDNaLKuoIn0 udHRibHtcZjAgQXJpYW m7aU44UVZcfI7gbCDtF Ps0MMCmgKYjmuLnTdKb LNUfkWZrxLB4EXBwIP8 hcmdsMTgwMFxtYXJncj Y6SQYzuUCxY1PnYROtY X9uylqeIKQ3NMkgJNDu SZV3StLnHJSdi4Ofoqb 3MjBccGFyZFxwbGFpbl iymtNaLQLoTPVvu8Dke iH3GKHaMjQipM1eNCIj ivZayMHmd9IasU8hl6Y kd4prNdSbLKrrAd4rrR qtiFssfoSlnYn0gGVmb WFsIGNlbGxzIHdpdGhv dXQgbnVjbGVhciBhdHl phSPvFNASpMIdz6XbGU 9wmEBqgPOzeBY1RKLhE YLpLuIzEQIekQWer4si c5isUI5kEQFsM84ynK1 aNKEdx1M6sCUbi8FwuP slRCaeE1WuHAAoMKXvC DovcMwcduc6tTIxYaGm IKIhkLuhV3QzOKJliYJ wvM6tL14dt2SyHIMcQb UfE50es6LmqVFwkBx8K TY7lXqzSUTopKZmyF4k BICtLZYujk38WYSmqj0 txPMuUS5yTZImueskIW Ard2WbRGPxPywalYPyz sQsKBniT63oc1jfZzJh XHBhcn0= Retained/Biomarker Testing d3wxbHCbHPLmwBLrUAF (test code = 9838) wMlxhbnNpXHNwbHRwZ3 WtjwzxGHzpOL7rXK4eu GxhdHRveWVuXGRlZmYw e2sbb123jLSfj8uaAIR YnhhtxEb2eTdzW43kk0 Q7AjmyF93bpHXqVUL8V TIyNDBccGFwZXJoMTU4 XZMzaNBcA1teSDBdYQ8 hcmdyMTgwMFxtYXJndD M0XTOnyWVoY1CySMMrW LuoXCTmlsa6FaDaLo5r dGVyeTcyMFxwYXJkXHB yPGkcNWXuNkOwU9M7SW TeN5ekVOHisYCywH== Informational Points (test o7lrbNJqAMVouNDePxL code = 9836) cWNCbYMMuu4imCQDujA FuZzEwMzNcZnRuYmpcd XXdONQsKqMew8iqu840 eTHfx2etEVKxXqE6hZU jVRGmqCPxQ064DNDkCL qzi0qul6HcQPFziVRgy 9L9VPVLJJosYNGUTOj0 i6unDyYcRxK7nXCsQYm wZ8mnpuMveFZcSONjAG v9hJ25JISreP3puZYpN LzociAgSnK5XCrcEWEj BmV0ZKExxRZaMQGtA8d yZWQwXGdyZWVuMFxibH MjAEE8dYhas0R4qYGok GVldHtcZjBcZnMyMiBO f6WoEEm3qYmtM6ZhVQR tMqB4aAOmPCZcSIboFC DjXINmzqR5uL70QAsmq eO6eUMpc8Djm31ba109 fB8zvWWdOJE3TVGoJJJ ptAEiDIKvBGN1LMAqeM VhB0tnRMFyGU6kwzotI SoeSTzrNPAfnFV8FUTs jWEbE4SxYJUfFImwJYD kiij2UtJmTs1mwIPtpM woQNmkd1unx0sofRIqO mi0YAVpQgSdLnauXWux h3Zst6kvWSKvkp7lZMD 8yHNjsWhvk2I8oMKmKF AubHPzovMaADXbBrY8G FfuOE3wjo62TPQhAKD1 zw4gnWOwpOtwevBoqYR bKUvuJ5EiGIExx016GD IyX8NcJSUgq0T8pfTfF bMgVYLzpBM2hkW2QYUt ZEc0zVQaviF6deGnlWL nN4xliU2mXKNvOF1squ tii5rcQVsdLJgiDLHjm CX8wgR9QLHqnMZaN3Ea gH4kQUUlHPkkLTBuqko 6NsRbVd3fkUGexQdkYS xzYmtwYWdlXHBnbmNvb nRccGduZGVjXHBsYWlu XHBsYWluXGYwXGZzMjR brGtxbKjekR7cGyYmGm NsRAuoKI8mXBZqA6git WLlTCSqNVYpR2ixBhBv kW3zzAofYYuomdS9RCs mR07sYKN6LUR0qoKlVA KeqyBmDKJrXFNhDA9dl DByXBEqIDPnPK5wABK6 ZWxvcGVkIGFuZCBwZXJ dr3KzWR4wCEUozKMmYD X6FSRch4OsQ6WhUJZ1Q NKtnJ8jVFLrwXISKOLQ RCBBbmRlcnNvbiBQYXR nk3imN1ajWO3vWYrbUs 9yYXRvcnkgTWVkaWNpb vUxQQKnQACkWZXkm0Za PMpgfgImkf02NVWcNX5 uv9LvR3mmyVAwcTm2PX TvYMGuYSNkr3OeWJFtk h03SBIfCzbpgEblKYCn Ds7xWo9eMUEczhKnEML 1KrJYPQ2pzixgkFOhnV masz7vEFNqKZgmZTVeZ GZzMjJcbGFuZzEwMzNc aGljaFxmMlxkYmNoXGY wDVkgP9klMtOpOhEgOk xwYXJ9 [facility] AllianceHepatitis C Virus [id number] 19:27:11 Test Item Value Reference Range Interpretation Comments HCVAb. (test Non Reactive Non Reactive Antibody detect ion in the code = 5762) immunocompromis ed and immunosuppresse d population may be delayed or absent entirely. There fore serial testing, correl ation with other clinical findings, and supplementa l testing (if available) should be taken into cons ideration when interpreti ng the results. [facility] AllianceTSH2022-12-09 18:33:01 Test Item Value Reference Range Interpretation Comments TSH (test code = 1.77 See_Comment [Automated message] The 03269-8) system which ge nerated this result transmit dionisio reference range : 0.27 - 4.20 mcunit/mL. The reference range was not used to interpr et this result as eri l/abnormal. [facility] AllianceFree [id number] 18:33:00 Test Item Value Reference Range Interpretation Comments T4 Free (test code = 3024-7) 1.18 ng/dL 0.93-1.70 [facility] AllianceHEMATOLOGY2019-10-29 21:53:00 Test Item Value Reference Range Interpretation Comments Sed Rate (test code = Sed Rate) 46 [facility] [id number] 21:53:00 Test Item Value Reference Range Interpretation Comments RF Qnt (test code = RF Qnt) 20 [id number] 21:53:00 Test Item Value Reference Range Interpretation Comments Sed Rate (test code = Sed Rate) 46 [facility] [id number] 21:53:00 Test Item Value Reference Range Interpretation Comments RF Qnt (test code = RF Qnt) 20 [facility] [id number] 21:53:00 Test Item Value Reference Range Interpretation Comments Sed Rate (test code = Sed Rate) 46 [facility] [id number] 21:53:00 Test Item Value Reference Range Interpretation Comments RF Qnt (test code = RF Qnt) 20 [facility] [id number] 21:53:00 Test Item Value Reference Range Interpretation Comments Sed Rate (test code = Sed Rate) 46 [facility] [id number] 21:53:00 Test Item Value Reference Range Interpretation Comments RF Qnt (test code = RF Qnt) 20 [facility] [id number] 21:53:00 Test Item Value Reference Range Interpretation Comments Sed Rate (test code = Sed Rate) 46 [facility] [id number] 21:53:00 Test Item Value Reference Range Interpretation Comments Sed Rate (test code = Sed Rate) 46 [facility] [id number] 21:53:00 Test Item Value Reference Range Interpretation Comments RF Qnt (test code = RF Qnt) 20 [facility] [id number] 21:53:00 Test Item Value Reference Range Interpretation Comments RF Qnt (test code = RF Qnt) 20 [facility]
[2022-03-13] MEDS ORDERED: ASPIRIN 81 MG CHEWABLE TABLET ONE (13:13)
[2022-03-13] MEDS ORDERED: NA CHLORIDE 0.9% 1,000 ML ONE (13:38)
[2022-03-13 13:41] LABS: Absolute Lymphocytes (CBC) 2.6 K/uL (0.7-4.9); Hematocrit 38.1 % (36.0-45.0); Lymphocytes % 37.4 % (15.3-44.8); MCV 85.7 fL (80-100); MPV 8.4 fL (7.6-11.3); RBC Red Blood Cell Count 4.44 M/uL (3.86-4.86)
[2022-03-13 13:46] LABS: SARS-CoV-2 Antigen Rapid Res Negative (Negative)
--- NOTE | 2022-03-13 13:57 | RAD REPORT ---
EXAM DESCRIPTION: RAD - Chest Single View - 03/13/2022 1:49 pm CLINICAL HISTORY: Chest pain COMPARISON: Chest Pa And Lat (2 Views) dated 08/22/2019; Chest Pa And Lat (2 Views) dated 07/27/2018; Chest Pa And Lat (2 Views) dated 10/01/2016; CHEST SINGLE VIEW dated 06/25/2014; CT ABD PELVIS W CONTRAS T dated 06/25/2014 FINDINGS: Lines: None. Lungs: No evidence of edema or pneumonia. Breast prostheses results in relative opacification of the lung bases . Pleural: No significant pleural effusions or pneumothorax. Cardiac: The heart size is within normal limits. Mediastinum: Within normal limits. Bones: No acute fractures. Other: None IMPRESSION: No acute cardiopulmonary disease.
[2022-03-13 14:35] LABS: Protime INR 0.96
[2022-03-13 14:38] LABS: Albumin 3.8 g/dL (3.4-5.0); Bilirubin Direct 0.1 mg/dL (0-0.2); Bilirubin Total 0.4 mg/dL (0.2-1.0); Magnesium 1.7 mg/dL (1.6-2.4); Potassium 3.4 mmol/L (3.5-5.1); Protein, Total 7.9 g/dL (6.4-8.2); Troponin High Sensitivity 30.9 pg/mL (<58.9)
[2022-03-13] MEDS ORDERED: CLOPIDOGREL 75 MG TABLET ONE (14:49)
[2022-03-13] MEDS ORDERED: HEPARIN/D5W 25,000 UNIT/500 ML BAG IV ONE (14:49)
[2022-03-13] MEDS ORDERED: FAMOTIDINE 20 MG/2 ML VIAL IV ONE (14:49)
[2022-03-13] MEDS ORDERED: HEPARIN 5000 UNIT/ML 1 ML VIAL ONE (14:49)
--- NOTE | 2022-03-13 14:54 | ER ---
Nurse's Notes [facility] Name: Indy Khoury Age: 67 yrs Sex: Female : 1955 Arrival Date: 03/13/2022 Time: 12:48 Bed 13 Private MD: Diagnosis: Chest pain, unspecified;Unstable angina;Essential (primary) hypertension Presentation: 03/13 12:52 Chief complaint: Substernal chest pain and SOB that started while driving car approx 1 hb hour ago. Coronavirus screen: At this time, the client does not indicate any symptoms associated with coronavirus-19. Ebola Screen: No symptoms or risks identified at this time. Risk Assessment: Do you want to hurt yourself or someone else? Patient reports no desire to harm self or others. Onset of symptoms was March 13, 2022. 12:52 Method Of Arrival: Ambulatory hb 12:52 Acuity: ELIGIO 3 hb Historical: - Allergies: 12:54 Codeine; hb 12:54 PENICILLINS; hb - Immunization history:: Adult Immunizations up to date. - Social history:: Smoking status: Patient denies any tobacco usage or history of. Screenin:30 [facility] ED Fall Risk Assessment (Adult) History of falling in the last 3 months, ko1 including since admission No falls in past 3 months (0 pts) Confusion or Disorientation No (0 pts) Intoxicated or Sedated No (0 pts) Impaired Gait No (0 pts) Mobility Assist Device Used No (0 pt) Altered Elimination No (0 pt) Score/Fall Risk Level 0 - 2 = Low Risk. Abuse screen: Denies threats or abuse. Denies injuries from another. Nutritional screening: No deficits noted. Tuberculosis screening: No symptoms or risk factors identified. Assessment: 13:00 General: Appears in no apparent distress. comfortable, Behavior is calm, cooperative, ko1 appropriate for age. Pain: Complains of pain in chest Pain does not radiate. Pain began 2 hours ago. Neuro: No deficits noted. Cardiovascular: Reports chest pain. Respiratory: No deficits noted. GI: No deficits noted. : No deficits noted. EENT: No deficits noted. Derm: No deficits noted. Musculoskeletal: No deficits noted. Vital Signs: 12:52 BP 154 / 86; Pulse 60; Resp 16; Temp 97.1; Pulse Ox 99% ; Weight 79.38 kg; Height 5 ft. hb 6 in. (167.64 cm); Pain 3/10; 13:30 BP 138 / 74; Pulse 57; Resp 18; Pulse Ox 98% ; ko1 14:00 BP 129 / 65; Pulse 55; Pulse Ox 96% ; ko1 15:00 BP 152 / 83; Pulse 65; Pulse Ox 100% ; ko1 16:00 BP 146 / 87; Pulse 53; Pulse Ox 98% ; ko1 16:30 BP 141 / 70; Pulse 60; Pulse Ox 98% ; ko1 12:52 Body Mass Index 28.25 (79.38 kg, 167.64 cm) hb ED Course: 12:48 Patient arrived in ED. am2 12:54 Triage completed. hb 12:54 Arm band placed on. hb 12:58 Ebony Ogden, KOREY is Primary Nurse. ko1 13:01 Juan Wright MD is Attending Physician. candice 13:51 XRAY Chest (1 view) In Process Unspecified. EDMS 14:35 Basic Metabolic Panel Sent. iw 14:35 D-Dimer Sent. iw 14:35 LFT's Sent. iw 14:35 Magnesium Sent. iw 14:35 NT PRO-BNP Sent. iw 14:35 Troponin HS Sent. iw 14:36 Lipase Sent. iw 14:36 Inserted saline lock: 20 gauge in right antecubital area, using aseptic technique. iw Blood collected. 15:08 Yessenia Crawford MD is Hospitalizing Provider. candice 15:10 US Extremity Venous W Compression Joey In Process Unspecified. EDMS 15:23 CT Chest For PE Angio In Process Unspecified. EDMS 16:30 Patient has correct armband on for positive identification. Bed in low position. Call ko1 light in reach. Side rails up X2. Client placed on continuous cardiac and pulse oximetry monitoring. NIBP monitoring applied. laboratory monitor on. 16:30 No provider procedures requiring assistance completed. Patient maintains SpO2 ko1 saturation greater than 95% on room air. Administered Medications: 13:13 Drug: Aspirin Chewable Tablet 324 mg Route: PO; ko1 13:40 Drug: NS 0.9% 1000 ml Route: IV; Rate: 125 ml/hr; Site: right antecubital; ko1 15:16 Drug: PlaVIX (clopidogrel) 300 mg Route: PO; ko1 15:16 Drug: Pepcid (famotidine) 20 mg Route: IVP; Site: right antecubital; ko1 15:17 Drug: Heparin (LA-Bolus No thrombolytic) - HEParin 60 units/kg {Co-Signature: ll1 ko1 (Poppy Hodge RN).} Route: IVP; Site: right antecubital; 15:17 Drug: Heparin (LA Drip) 12 units/kg/hr - (HEParin 10488 units, D5W 500 ml) ko1 {Co-Signature: ll1 (Poppy Hodge RN).} Route: IV; Rate: calculated rate; Site: right antecubital; 15:20 Follow up: Rate change 19 ml/hr ko1 Medication: 16:30 VIS not applicable for this client. ko1 Outcome: 14:54 ER care complete, transfer ordered by . candice 15:09 Decision to Hospitalize by Provider. candice 17:54 Patient left the ED. kb3 Signatures: Dispatcher [employer] EDMS Juan Wright MD MD cha Williams, Irene, RN RN Calista Joseph RN RN Christina Cheng am2 Loree Jack RN RN kb3 Ebony Ogden, KOREY NAIR ko1 Poppy Hodge RN ll1 Corrections: (The following items were deleted from the chart) 12:54 12:52 Pulse 60bpm; Resp 16bpm; Pulse Ox 99%; Temp 97.1F; 79.38 kg; Height 5 ft. 6 in.; hb BMI: 28.2; Pain 3/10; hb 13:26 13:26 NS 0.9% 1000 ml IV at 125 ml/hr in left wrist ko1 ko1
--- NOTE | 2022-03-13 14:55 | EDPHYS ---
Physician Documentation [facility] Name: Indy Khoury Age: 67 yrs Sex: Female : 1955 Arrival Date: 03/13/2022 Time: 12:48 Bed 13 Private MD: ED Physician Juan Wright HPI: 03/13 14:42 This 67 yrs old Female presents to ER via Ambulatory with complaints of Chest candice Pain. 14:42 The patient or guardian reports chest pain that is located primarily in the substernal candice area. Onset: just prior to arrival. The pain radiates to Associated signs and symptoms: Pertinent positives: dizziness, nausea, shortness of breath. The chest pain is described as a heaviness, a pressure. Duration: The patient or guardian reports a single episode, that is now resolved. Severity of pain: At its worst the pain was moderate in the emergency department the pain has resolved. The patient has experienced similar episodes in the past, a few times. Historical: - Allergies: 12:54 Codeine; hb 12:54 PENICILLINS; hb - Immunization history:: Adult Immunizations up to date. - Social history:: Smoking status: Patient denies any tobacco usage or history of. ROS: 14:48 Constitutional: Negative for fever, chills, and weight loss, Eyes: Negative for injury, candice pain, redness, and discharge, ENT: Negative for injury, pain, and discharge, Neck: Negative for injury, pain, and swelling, Respiratory: Negative for shortness of breath, cough, wheezing, and pleuritic chest pain, Abdomen/GI: Negative for abdominal pain, nausea, vomiting, diarrhea, and constipation, Back: Negative for injury and pain, : Negative for injury, bleeding, discharge, and swelling, MS/Extremity: Negative for injury and deformity, Skin: Negative for injury, rash, and discoloration, Neuro: Negative for headache, weakness, numbness, tingling, and seizure, Psych: Negative for depression, anxiety, suicide ideation, homicidal ideation, and hallucinations, Allergy/Immunology: Negative for hives, rash, and allergies, Endocrine: Negative for neck swelling, polydipsia, polyuria, polyphagia, and marked weight changes, Hematologic/Lymphatic: Negative for swollen nodes, abnormal bleeding, and unusual bruising. 14:48 Cardiovascular: Positive for chest pain, of the chest. Exam: 14:48 Constitutional: This is a well developed, well nourished patient who is awake, alert, candice and in no acute distress. Head/Face: Normocephalic, atraumatic. Eyes: Pupils equal round and reactive to light, extra-ocular motions intact. Lids and lashes normal. Conjunctiva and sclera are non-icteric and not injected. Cornea within normal limits. Periorbital areas with no swelling, redness, or edema. ENT: Nares patent. No nasal discharge, no septal abnormalities noted. Tympanic membranes are normal and external auditory canals are clear. Oropharynx with no redness, swelling, or masses, exudates, or evidence of obstruction, uvula midline. Mucous membranes moist. Neck: Trachea midline, no thyromegaly or masses palpated, and no cervical lymphadenopathy. Supple, full range of motion without nuchal rigidity, or vertebral point tenderness. No Meningismus. Chest/axilla: Normal chest wall appearance and motion. Nontender with no deformity. No lesions are appreciated. Cardiovascular: Regular rate and rhythm with a normal S1 and S2. No gallops, murmurs, or rubs. Normal PMI, no JVD. No pulse deficits. Respiratory: Lungs have equal breath sounds bilaterally, clear to auscultation and percussion. No rales, rhonchi or wheezes noted. No increased work of breathing, no retractions or nasal flaring. Abdomen/GI: Soft, non-tender, with normal bowel sounds. No distension or tympany. No guarding or rebound. No evidence of tenderness throughout. Back: No spinal tenderness. No costovertebral tenderness. Full range of motion. Skin: Warm, dry with normal turgor. Normal color with no rashes, no lesions, and no evidence of cellulitis. MS/ Extremity: Pulses equal, no cyanosis. Neurovascular intact. Full, normal range of motion. Neuro: Awake and alert, GCS 15, oriented to person, place, time, and situation. Cranial nerves II-XII grossly intact. Motor strength 5/5 in all extremities. Sensory grossly intact. Cerebellar exam normal. Normal gait. Psych: Awake, alert, with orientation to person, place and time. Behavior, mood, and affect are within normal limits. 14:48 ECG was reviewed by the Attending Physician. Vital Signs: 12:52 BP 154 / 86; Pulse 60; Resp 16; Temp 97.1; Pulse Ox 99% ; Weight 79.38 kg; Height 5 ft. hb 6 in. (167.64 cm); Pain 3/10; 13:30 BP 138 / 74; Pulse 57; Resp 18; Pulse Ox 98% ; ko1 14:00 BP 129 / 65; Pulse 55; Pulse Ox 96% ; ko1 15:00 BP 152 / 83; Pulse 65; Pulse Ox 100% ; ko1 16:00 BP 146 / 87; Pulse 53; Pulse Ox 98% ; ko1 16:30 BP 141 / 70; Pulse 60; Pulse Ox 98% ; ko1 12:52 Body Mass Index 28.25 (79.38 kg, 167.64 cm) hb MDM: 13:01 Patient medically screened. candice 14:50 Differential diagnosis: acute myocardial infarction, anxiety, congestive heart failure candice costochondritis, hiatal hernia, myocarditis, pancreatitis, peptic ulcer disease, pericarditis, pneumonia, pulmonary embolus, stable angina, unstable angina. HEART Score: History: Highly Suspicious (2), ECG: Non specific repolarization disturbance / LBTB / PM (1), Age: > or = 65 years (2), Risk Factors: 1 or 2 risk factors (1), [Hypertension] [+ Family HX] Troponin: < or = 1 x Normal Limit (0). The patient was given aspirin in the Emergency Department. NATASHA Risk Score: 1 - patient's age is greater or equal to 65 years, 1 - Recent [<24hrs] Severe Angina. Data reviewed: vital signs, nurses notes, lab test result(s), EKG, radiologic studies, CT scan, doppler, plain films. Consideration of Admission/Observation Patient was admitted/placed on observation. Escalation of care including admission/observation considered. Management of patient was discussed with the following: Welding Machine Operator Helper Arc: DR Eun WATERMAN. I considered the following discharge prescriptions or medication management in the emergency department Medications were administered in the Emergency Department. See 13:03 Order name: Basic Metabolic Panel; Complete Time: 14:39 03/13 13:03 Order name: CBC with Diff; Complete Time: 14:35 03/13 13:03 Order name: D-Dimer; Complete Time: 14:39 03/13 13:03 Order name: LFT's; Complete Time: 14:39 candice 03/13 13:03 Order name: Magnesium; Complete Time: 14:39 candice 03/13 13:03 Order name: NT PRO-BNP; Complete Time: 14:39 candice 03/13 13:03 Order name: PT-INR; Complete Time: 14:39 candice 03/13 13:03 Order name: Troponin HS; Complete Time: 14:39 candice 03/13 13:03 Order name: Lipase; Complete Time: 14:39 candice 03/13 13:03 Order name: SARS RAPID; Complete Time: 14:35 candice 03/13 15:50 Order name: Urinalysis EDMS 03/13 15:50 Order name: Basic Metabolic Panel EDMS 03/13 15:50 Order name: Basic Metabolic Panel EDMS 03/13 15:50 Order name: Basic Metabolic Panel EDIL 03/13 13:03 Order name: XRAY Chest (1 view); Complete Time: 14:35 candice 03/13 14:39 Order name: CT Chest For PE Angio; Complete Time: 15:49 03/13 14:39 Order name: US Extremity Venous W Compression Joey; Complete Time: 15:49 eb 03/13 15:50 Order name: Basic Metabolic Panel EDMS 03/13 15:50 Order name: CBC with Automated Diff EDMS 03/13 15:50 Order name: CBC with Automated Diff EDMS 03/13 15:50 Order name: CBC with Automated Diff EDMS 03/13 15:50 Order name: CBC with Automated Diff EDMS 03/13 15:50 Order name: Troponin High Sensitivity EDMS 03/13 15:50 Order name: Troponin High Sensitivity; Complete Time: 17:42 EDIL 03/13 15:50 Order name: Troponin High Sensitivity EDIL 03/13 15:54 Order name: Echo with Doppler EDMS 03/13 16:14 Order name: Urine Dipstick-Ancillary; Complete Time: 17:42 EDMS 03/13 17:04 Order name: Potassium; Complete Time: 17:42 EDIL 03/13 17:41 Order name: Troponin High Sensitivity [facility] 03/13 13:03 Order name: EKG; Complete Time: 13:04 candice 03/13 13:03 Order name: Cardiac monitoring; Complete Time: 13:11 candice 03/13 13:03 Order name: EKG - Nurse/Tech; Complete Time: 13:11 [facility] 03/13 13:03 Order name: IV Saline Lock; Complete Time: 13:42 [facility] 03/13 13:03 Order name: Labs collected and sent; Complete Time: 13:42 [facility] 03/13 13:03 Order name: O2 Per Protocol; Complete Time: 13:11 [facility] 03/13 13:03 Order name: O2 Sat Monitoring; Complete Time: 13:11 [facility] 03/13 13:03 Order name: Urine Dipstick-Ancillary (obtain specimen); Complete Time: 16:13 [facility] 03/13 15:50 Order name: Heart Healthy EDMS EC:48 Rate is 53 beats/min. Rhythm is regular. QRS [place] is Normal. NM interval is normal. QRS candice interval is normal. QT interval is normal. No Q waves. T waves are Normal. No ST changes noted. Clinical impression: Sinus bradycardia and No evidence of ischemia. Interpreted by me. Reviewed by me. Administered Medications: 13:13 Drug: Aspirin Chewable Tablet 324 mg Route: PO; ko1 13:40 Drug: NS 0.9% 1000 ml Route: IV; Rate: 125 ml/hr; Site: right antecubital; ko1 15:16 Drug: PlaVIX (clopidogrel) 300 mg Route: PO; ko1 15:16 Drug: Pepcid (famotidine) 20 mg Route: IVP; Site: right antecubital; ko1 15:17 Drug: Heparin (OR-Bolus No thrombolytic) - HEParin 60 units/kg {Co-Signature: ll1 ko1 (Poppy Hodge RN).} Route: IVP; Site: right antecubital; 15:17 Drug: Heparin (OR Drip) 12 units/kg/hr - (HEParin 91817 units, D5W 500 ml) ko1 {Co-Signature: ll1 (Poppy Hodge RN).} Route: IV; Rate: calculated rate; Site: right antecubital; 15:20 Follow up: Rate change 19 ml/hr ko1 Disposition Summary: 03/13/22 15:09 Hospitalization Ordered Hospitalization Status: Observation candice Provider: Yessenia Crawford cha Location: Telemetry/MedSurg (Inpatient) candice Condition: Fair(03/13/22 15:09) candice Problem: new(03/13/22 15:09) candice Symptoms: have improved(03/13/22 15:09) candice Bed/Room Type: Standard candice Room Assignment: 220(03/13/22 16:20) eb Diagnosis - Chest pain, unspecified candice - Unstable angina(03/13/22 15:09) candice - Essential (primary) hypertension(03/13/22 15:09) candice Forms: - Medication Reconciliation Form candice - SBAR form candice Signatures: Dispatcher [employer] EDJuan Jesus MD MD cha Baxter, Heather RN RN Britney Ceron Kathy, RN RN ko1 Poppy Hodge RN ll1 Corrections: (The following items were deleted from the chart) 15:07 14:[address] WATERMAN candice candice 15:07 14:54 [employer] System candice candice 15:07 14:54 Higher level of care candice candice 15:07 14:54 Stable candice candice 15:07 14:54 new candice candice 15:07 14:54 have improved candice candice 15:07 14:54 Unstable angina candice candice 15:07 14:54 Essential (primary) hypertension candice candice 16:20 15:09 candice eb
--- NOTE | 2022-03-13 15:16 | RAD REPORT ---
EXAM DESCRIPTION: US - Extrem Venous W Compress Joey - 03/13/2022 3:08 pm CLINICAL HISTORY: chest pain COMPARISON: No comparisons TECHNIQUE: Real-time sonographic evaluation of the lower extremity deep venous systems was performed using color Doppler, grayscale, and compression. FINDINGS: Bilateral lower extremities. Normal compressibility, flow augmentation, phasic flow and spontaneous flow is identified in both the left and right lower extremity deep venous systems. No intraluminal filling defects seen. IMPRESSION: No DVT in either lower extremity.
--- NOTE | 2022-03-13 15:40 | RAD REPORT ---
EXAM DESCRIPTION: CT - Chest For Pe Angio - 03/13/2022 3:21 pm CLINICAL HISTORY: Chest pain COMPARISON: Same-day chest radiograph TECHNIQUE: Dynamically enhanced axial 3 mm thick images of the chest were obtained during administra tion of <100> mL Isovue 370 IV contrast. Coronal and oblique reconstruction images were generated and reviewed. Exam utilizes a protocol for optimal evaluation of pulmonary arterial tree. Maximum intensity projections 3D imaging was utilized All CT scans are performed using dose optimization technique as appropriate and may include automated exposure control or mA/KV adjustment according to patient size. FINDINGS: Chest Wall: No suspicious thyroid nodules or pathologic lymphadenopathy. Bilateral breast prostheses. Lungs: No acute abnormality. Calcified nodule in the right middle lobe. Pleura: No significant effusions or pneumothorax. Mediastinum/rose marie: No pathologic lymphadenopathy. Small hiatal hernia. Pulmonary arteries/Aorta: No filling defect identified. No aortic aneurysm. Heart: No significant pericardial effusion. Normal heart size. Upper abdomen: Hepatic steatosis. Hypoattenuation in segment 3 of the liver may reflect fatty infiltr ation or other benign process. No evidence of intrahepatic biliary duct dilatation. Bones: No acute abnormality. IMPRESSION: Negative for pulmonary embolism. No acute finding within the chest.
[2022-03-13] MEDS ORDERED: ACETAMINOPHEN 500 MG TAB PO PRN (15:44)
[2022-03-13] MEDS ORDERED: ONDANSETRON 4 MG/2 ML VIAL IV PRN (15:44)
[2022-03-13] MEDS ORDERED: MORPHINE 2 MG/ML SYR IM PRN (15:47)
[2022-03-13] MEDS ORDERED: NITROGLYCERIN 0.4 MG/TAB SL PRN (15:50)
--- NOTE | 2022-03-13 15:59 | P.HP ---
Certification for Inpatient Patient admitted to: Observation With expected LOS: <2 Midnights Patient will require the following post-hospital care: None Practitioner: I am a practitioner with admitting privileges, knowledge of patient current condition, hospital course, and medical plan of care. Services: Services provided to patient in accordance with Admission requirements found in Title 42 Section 412.3 of the Code of Federal Regulations Patient History Date of Service: 03/13/22 Primary Care Provider: Serena Reason for admission: Unstable angina History of Present Illness: This is a 67-year-old female with prior medical history of hyperlipidemia. Patient presents to the emergency room with complaints of chest pain. Patient states she was driving home, and started to develop sharp, stabbing, constant pain in the substernal area. She reports 6 out of 10 pain. She states that the pain radiated up her neck. She reports associated symptoms of headaches, dizziness, shortness of breath. Patient states that she continue to drive herself home. She attempted to take some aspirin but she was taken to the hospital, for further treatment. Patient was treated with aspirin 324, Plavix 300 mg. Patient reports feeling much better now. She reports having a stress test about 30 years ago, and the results were negative. Patient's EKG showed sinus yanni with a heart rate of 53, otherwise normal EKG. Patient's D- dimer was elevated at 509, patient was started on a heparin drip in the ER. Initial Trop was negative, will trend 2 more. Patient will be admitted under the care of Dr. Crawford. Cardiology will be consulted for further management. Allergies amoxicillin Allergy (Verified 07/31/18 09:20) Unknown clarithromycin [From Biaxin] Allergy (Verified 07/31/18 09:20) Unknown codeine Allergy (Verified 07/31/18 09:20) Nausea/Vomiting avalox Allergy (Uncoded 07/31/18 09:20) Unknown Home Medications: Cetirizine HCl [Zyrtec] 10 mg PO DAILY 07/27/18 Furosemide [Lasix] 40 mg PO DAILY 07/27/18 Glucosamine/Chondr Paige A Sod [Osteo Bi-Flex Caplet] 1 each PO DAILY 07/27/18 Krill/Om-3/Dha/Epa/Phospho/Ast [Krill Oil 1,000 mg Softgel] 2 each PO DAILY 07/27/18 Metaxalone 400 mg PO PRN PRN 07/27/18 Potassium Chloride 20 meq PO DAILY 07/27/18 Propranolol HCl 20 mg PO DAILY AFTER SUPPER 07/27/18 Simvastatin 10 mg PO DAILY 07/27/18 Sulfamethoxazole/Trimethoprim [Bactrim Ds Tablet] 1 each PO BID #10 tablet 07/31/18 Tramadol HCl/Acetaminophen [Ultracet Tablet] 1 each PO Q4H #30 tablet 07/31/18 - Past Medical/Surgical History -: HLD Past Surgical History: Reviewed- Non-Contributory - Family History Mother -: Heart disease - Social History Smoking Status: Never smoker Alcohol use: No CD- Drugs: No Caffeine use: Yes Place of Residence: Home Review of Systems 10-point ROS is otherwise unremarkable Respiratory: Shortness of Breath, SOB with Excertion Cardiovascular: Chest Pain, Light Headedness Gastrointestinal: Nausea Physical Examination - Vital Signs Temperature: 97.1 F Blood Pressure: 156/64 Pulse: 54 Respirations: 18 Pulse Ox (%): 100 - Physical Exam General: Alert, In no apparent distress, Oriented x3 HEENT: Atraumatic, Normocephalic, PERRLA Neck: Supple, 2+ carotid pulse no bruit Respiratory: Clear to auscultation bilaterally, Normal air movement Cardiovascular: No edema, Normal pulses, Normal S1 S2 Capillary refill: <2 Seconds Gastrointestinal: Normal bowel sounds Musculoskeletal: No clubbing, No swelling Integumentary: No rashes, No breakdown Neurological: Normal speech, Normal strength at 5/5 x4 extr, Normal tone, Sensation intact Lymphatics: No axilla or inguinal lymphadenopathy - Studies Laboratory Data (last 24 hrs) 03/13/22 13:22: PT 10.6, INR 0.96 03/13/22 13:22: WBC 6.90, Hgb 13.4, Hct 38.1, Plt Count 261 03/13/22 13:22: Sodium 138, Potassium 3.4 L, BUN 17, Creatinine 0.85, Glucose 113 H, Magnesium 1.7, Total Bilirubin 0.4, AST 29, ALT 58 H, Alkaline Phosphatase 68, Lipase 213 Assessment and Plan - Plan Assessment Stable angina Hyperlipidemia Hypokalemia Plan Stable angina Stable, continue telemetry monitoring D-dimer 509, Trop 30.9 Serial troponin ED started heparin drip Cardiology consulted, recommendations appreciated Last stress test 30 years ago with negative result Echo ordered CT angiogram- Negative for pulmonary embolism. No acute finding within the chest Bilateral lower extremity venous Doppler- No DVT in either lower extremity Hyperlipidemia Continue statin Hypokalemia Potassium 3.4 Replaced BMP and magnesium in the morning PPX-Heparin gtt Code Status: Full code Discharge Plan: Home Plan to discharge in: 48 Hours - Advance Directives Does patient have a Living Will: No Does patient have a Durable POA for Healthcare: No - Code Status/Comfort Care Code Status Assessed: Yes (Full code) Critical Care: No Time Spent Managing Pts Care (In Minutes): 50
[2022-03-13] MEDS ORDERED: POTASSIUM CL SA 10 MEQ TAB PO ONE (16:11)
[2022-03-13 16:14] LABS: Urine Blood Negative (Negative); Urine Glucose Negative (Negative); Urine Protein Negative (Negative); Urine Specific Gravity <=1.005 (1.005-1.030)
[2022-03-13 18:18] VITALS: BMI 28.2
[2022-03-13] MEDS ORDERED: ATORVASTATIN 40 MG TAB PO SCH (21:00)
[2022-03-14 04:34] LABS: Absolute Lymphocytes (CBC) 2.1 K/uL (0.7-4.9); Lymphocytes % 38.6 % (15.3-44.8); MCV 86.7 fL (80-100); MPV 8.3 fL (7.6-11.3); RBC Red Blood Cell Count 4.16 M/uL (3.86-4.86)
[2022-03-14 04:51] LABS: Potassium 3.5 mmol/L (3.5-5.1); Troponin High Sensitivity 35.9 pg/mL (<58.9)
[2022-03-14 06:07] VITALS: TEMP 97.1
[2022-03-14 07:51] VITALS: BP 155/69
[2022-03-14] MEDS ORDERED: PNEUMOCOCCAL VACCINE 0.5 ML IMVAC ONE (08:00)
[2022-03-14] MEDS ORDERED: ASPIRIN EC 81 MG TAB PO SCH (09:00)
[2022-03-14] MEDS ORDERED: POTASSIUM CL SA 10 MEQ TAB PO ONE (09:00)
[2022-03-14 09:32] VITALS: O2SAT 95
--- NOTE | 2022-03-15 17:37 | EKG ---
Test Date: 2022-03-13 Test Time: 13:08:21 Gas Line Installer: KATARINA MEASUREMENT RESULTS: Intervals: Rate: 53 LA: 142 QRSD: 78 QT: 418 QTc: 392 [place]: P: 29 LA: 142 QRS: 77 T: 90 INTERPRETIVE STATEMENTS: Sinus bradycardia Otherwise normal ECG Compared to ECG 06/25/2014 03:59:57 Sinus rhythm no longer present Electronically Signed On 03-15-22 17:33:10 FREIGHT HUSTLER by Dejan Mata
--- NOTE | 2022-03-15 17:37 | EKG ---
Test Date: 2022-03-13 Test Time: 13:39:33 Solid Center Winder: KATARINA MEASUREMENT RESULTS: Intervals: Rate: 105 OK: 132 QRSD: 76 QT: 338 QTc: 446 [place]: P: 73 OK: 132 QRS: 37 T: 40 INTERPRETIVE STATEMENTS: Sinus tachycardia Otherwise normal ECG Compared to ECG 03/13/2022 13:08:21 Sinus bradycardia no longer present Electronically Signed On 03-15-22 17:33:08 COTTON EXPERT by Dejan Mata
== END 2022-03-14 11:33 | disposition home or self-care (01) ==
LOC: ER 12:46 → ERHOLD 15:43 → 2ND 17:27
PROVIDERS: ADMIT Hospitalist; ATTEND Hospitalist
DX: I20.9 Angina pectoris, unspecified (principal); E78.5 Hyperlipidemia, unspecified; E87.6 Hypokalemia; Z88.6 Allergy status to analgesic agent; Z88.1 Allergy status to other antibiotic agents; Z20.822 Contact with and (suspected) exposure to COVID-19
CPT/HCPCS: 85025 ×2; 80048 ×2; 36415; 83735; 84132; 85610; 85379; 80076; 81003; 84484 ×4; 83690; 83880; 71275; 71045; 93970; 96375; 96374; 99285; 87811; Q9967; J1644 ×2; J7030; 93005; G0378

== ENCOUNTER 2023-06-09 23:18 | Emergency (ER) | payer OTHER, BC ==
--- OUTSIDE RECORDS SUMMARY | 2023-06-09 23:21 | XMS REPORT | Clinical Summary ---
Author Name Unknown Organization [facility] Address [address] [place] [address] Care Team Providers Care Electrician Journeyman Wireman Name Role Phone Sylvia Serrano MD Primary Care Provider [phone] Luisito Dorsey MD Unavailable [phone] OhSergey MD Unavailable Allergies Active Allergy Reactions Criticality Noted Date Comments Codeine GI Intolerance,Other (See Comments) 01/20/2016 Headaches Headaches Penicillins Itching High 02/05/2022 Tachycardia Flushing Medications Medication Sig Dispensed Refills Start Date End Date Status furosemide (LASIX) 40 mg tablet Take 1 tablet (40 mg) by mouth daily. 0 2 Active esomeprazole magnesium 20 mg TbEC Take 1 tablet by mouth daily. 0 Active simvastatin (ZOCOR) 10 mg tablet Take 1 tablet (10 mg) by mouth daily. 0 2 Active propranolol (INDERAL) 20 mg tablet Take 1 tablet (20 mg) by mouth daily. 0 6 Active potassium chloride (K-DUR,KLOR-CON M) 20 mEq tablet Take 1 tablet (20 mEq) by mouth daily. 0 Active Vyvanse 20 mg capsule Take 1 capsule (20 mg) by mouth daily. 0 2 Active Linzess 145 mcg capsule Take 1 capsule (145 mcg) by mouth daily. 0 2 Active cholecalciferol, vitamin D3, 25 mcg (1,000 unit) capsule Take 1 capsule (1,000 Units) by mouth every morning. 0 Active venlafaxine (EFFEXOR-XR) 150 mg 24 hr capsule Take 1 capsule (150 mg) by mouth every morning. 0 6 Active multivitamin capsule Take 1 capsule by mouth daily. 0 Active ondansetron (ZOFRAN-ODT) 8 mg disintegrating tabletIndications:T hyroid nodule Dissolve 1 tablet (8 mg) on the tongue every 8 (eight) hours as needed for nausea or vomiting. 12 tablet 0 3 Active traMADol (Ultram) 50 mg tabletIndications:T hyroid nodule Take 1 tablet (50 mg) by mouth every 6 (six) hours as needed for moderate pain or severe pain. 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 0 07/06/19 Discontinued(Not Applicable) levothyroxine (Synthroid) 50 mcg tabletIndications:P ostoperative hypothyroidism Take 1 tablet (50 mcg) by mouth daily. 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 90 tablet 2 3 02/08/20 23 Discontinued levothyroxine (SYNTHROID, LEVOTHROID) 25 mcg tablet Take 0.5 tablets (12.5 mcg) by mouth daily. 0 02/08/20 23 Discontinued levothyroxine (SYNTHROID, LEVOTHROID) 50 mcg tablet Take 1 tablet (50 mcg) by mouth daily. 0 02/08/20 23 Discontinued Active Problems Problem Noted Date Diagnosed Date Essential tremor 05/12/2022 Hypertensive disorder 05/12/2022 Hyperlipidemia 05/12/2022 Nonalcoholic steatohepatitis (CARVAJAL) 05/12/2022 Hiatal hernia 01/18/2022 Prediabetes 01/18/2022 Rheumatoid arthritis of multiple joints 09/29/19 16 Overview: Last Assessment & Plan: Although the level of activity appears quite low I can still detect some articular swelling particularly of the long PIP on the left hand and the index MCPs bilaterally. 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 If she does well at work over the first month or 6 weeks I think reducing the dose to 5 mg weekly may be reasonable. She understands that she may flare. She worries about the methotrexate and its effect on her fatty liver. Laboratories will be obtained today to look for activity of disease and comorbidity of medication. I would like to see her back in 3 months time or when necessary. 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 Inflammatory polyarthropathy 10/13/2009 Overview: ICD10 Diagnosis Term Criminal Investigator Utility Thyroid nodule Encounters Date Type Department Care Team Description 02/07/2023 10:00 AM HALL CLEANER Follow[facility]Up [facility] [address] [place] [address], 6th Floor [facility] [place] [address] Sylvia Serrano MD Thyroid nodule; Autoimmune hypothyroidism; Neoplasm of uncertain behavior of thyroid gland; Postoperative hypothyroidism; Long-term drug therapy 02/07/2023 9:00 AM HALL CLEANER Ancillary Procedure Neuro-Intervention al Ultrasound [address] [facility], 6th [place] [address] Sylvia Serrano MD Thyroid nodule; Autoimmune hypothyroidism 02/07/2023 8:15 AM HALL CLEANER - 02/07/2023 11:59 PM HALL CLEANER Hospital Encounter [facility] [address] [place] [id number] Sylvia Serrano MD Thyroid nodule; Autoimmune hypothyroidism Discharge Disposition: Home 02/07/2023 Travel 12/06/2022 Travel 12/02/2022 Orders Only [facility] [address] [place] [address], 6th [place] [address] Naye Don APRN Neoplasm of uncertain behavior of thyroid gland (Primary Dx); Postoperative hypothyroidism; Other insomnia 12/01/2022 Orders Only Endocrine Center [address] [place] [address], [facility] [place] [address] Naye Don APRN Neoplasm of uncertain behavior of thyroid gland (Primary Dx); Postoperative hypothyroidism 10/22/2022 Telephone Endocrine Center [address] [place] [address], [address] [place] [address] [place] [address] Naye Don APRN 10/20/2022 Travel 07/05/2022 1:30 PM CDT Follow-Up End[facility] [address] [place] [address], [address] [place] [address] [place] [address] Sylvia Serrano MD Postoperative hypothyroidism (Primary Dx); Neoplasm of uncertain behavior of thyroid gland; Encounter for screening for other suspected endocrine disorder 07/05/2022 11:30 AM CDT - 07/05/2022 11:59 PM CDT Hospital Encounter [facility] [address] [place] [address] Naye Don APRN Neoplasm of uncertain behavior of thyroid gland; Encounter for screening for other suspected endocrine disorder Discharge Disposition: Home 07/05/2022 Travel after 06/09/2022 Surgical History Surgery Date Site/Laterality Comments HYSTERECTOMY 02/28/2011 - 02/28/2012 CHOLECYSTECTOMY 02/28/2018 - 02/27/2019 WA TOTAL THYROID LOBECTOMY UNI W/WO ISTHMUSECTOMY 05/13/2022 Neck/Left Procedure: UNILATERAL COMPLETE THYROID LOBECTOMY; Surgeon: Luisito Dorsey MD; Location: MAIN OR; Service: HN - HEAD & NECK SURGERY Medical History Medical History Date Comments Hypothyroidism Postoperative nausea and vomiting Social History Tobacco Use Types Packs/Day Years Used Date Smoking Tobacco: Never Smokeless Tobacco: Never Tobacco Cessation:Counseling Given: Not Answered Alcohol Use Standard Drinks/Week Comments Never 0 (1 standard drink = 0.6 oz pur e alcohol) Sex and Gender Information Value Date Recorded Sex Assigned at Female 01/04/2022 5:27 PM HALL CLEANER Gender Identity Not on file Sexual Orientation Straight 01/04/2022 5: 27 PM HALL CLEANER Job Start Date Occupation Industry Not on file Not on file Not on file Travel History Travel Start Travel End [place] 01/31/2023 02/05/2023 Obstetrics History Last Filed Vital Signs Vital Sign Reading Time Taken Comments Blood Pressure 144/75 02/07/2023 10:03 AM HALL CLEANER Pulse 70 02/07/2023 10:03 AM HALL CLEANER Temperature 36.4 C (97.5 F) 02/07/2023 10:[address] Respiratory Rate 18 02/07/2023 10:03 AM HALL CLEANER Oxygen Saturation 96% 02/07/2023 10:03 AM HALL CLEANER Inhaled Oxygen Concentration - - Weight 79.2 kg (174 lb 9.7 oz) 02/07/2023 10:03 AM HALL CLEANER Height - - Body Mass Index 29.23 02/05/2022 8:22 AM HALL CLEANER Plan of Treatment Upcoming Encounters Date Type Department Care Team Description 07/04/2023 7:00 AM CDT Appointment [facility] [address] [place] [id number] Sylvia Serrano MD [address] [place] [id number] 07/04/2023 7:15 AM CDT Ancillary Procedure Neuro-Interventional Ultrasound [address] [place] [address], 6th [place] [address] Sylvia Serrano MD [address] [place] [id number] 07/04/2023 9:00 AM CDT Follow-Up End[facility] [address] [place] [address], 6th [place] [address] Sylvia Serrano MD [address] [place] [id number] Health Maintenance Due Date Last Done Comments COVID-19 Vaccine ( season) 10/29/202201/2021 Influenza Vaccine 10/29/2022 11/28/2021 Procedures Procedure Name Priority Date/Time Associated Diagnosis Comments US HEAD NECK SOFT TISSUE Routine 02/07/2023 10:00 AM HALL CLEANER Thyroid nodule Autoimmune hypothyroidism THYROID STIMULATING HORMONE Routine 02/07/2023 9:03 AM HALL CLEANER Thyroid nodule Autoimmune hypothyroidism FREE THYROXINE Routine 02/07/2023 9:03 AM HALL CLEANER Thyroid nodule Autoimmune hypothyroidism THYROID STIMULATING HORMONE Routine 12/06/2022 12:42 PM CDT Neoplasm of uncertain behavior of thyroid gland Postoperative hypothyroidism Other insomnia FREE THYROXINE Routine 12/06/2022 12:42 PM CDT Neoplasm of uncertain behavior of thyroid gland Postoperative hypothyroidism Other insomnia THYROID STIMULATING HORMONE Routine 10/20/2022 12:43 PM CDT Neoplasm of uncertain behavior of thyroid gland Postoperative hypothyroidism FREE THYROXINE Routine 10/20/2022 12:43 PM CDT Neoplasm of uncertain behavior of thyroid gland Postoperative hypothyroidism THYROID STIMULATING HORMONE Routine 07/05/2022 12:11 PM CDT Neoplasm of uncertain behavior of thyroid gland Encounter for screening for other suspected endocrine disorder FREE THYROXINE Routine 07/05/2022 12:11 PM CDT Neoplasm of uncertain behavior of thyroid gland Encounter for screening for other suspected endocrine disorder after 06/09/2022 Results * US Head Neck Soft Tissue (02/07/2023 10:00 AM HALL CLEANER) Anatomical Region Laterality Modality Head, Neck Ultrasound 02/07/2023 9:40 AM HALL CLEANER Impressions 02/07/2023 10:28 AM HALL CLEANER 1. Stable left lobectomy changes with no recurrent tumor. 2. No measurable nodules within the normal-appearing right lobe of the thyroid. 3. No cervical adenopathy. ACTIONABLE ITEMS/RECOMMENDATIONS: None. Narrative 02/07/2023 10:28 AM HALL CLEANER FULL RESULT: Examination: ULTRASOUND SOFT TISSUE HEAD&NECK on 02/07/2023 9:40 AM. 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 COMPARISON: Ultrasound of the neck and thyroid 02/05/2022. PROCEDURE COMMENTS: Real-time ultrasound examination of the neck soft tissues was performed. FINDINGS: Right Thyroid Lobe/Bed: The right lobe of the thyroid measures 2.3 x 1.3 x 1.4 cm. There are no measurable nodules. No central compartment adenopathy. Left Thyroid Lobe/Bed: Post lobectomy changes are stable. No adenopathy or suspicious nodules. Suprasternal and Superior Mediastinal: No recurrence. Right Lateral Neck: No adenopathy. Left Lateral Neck: No adenopathy. Submental to Cricoid: No adenopathy. Procedure Note Mark Anthony Campos MD - 02/07/2023 FULL RESULT: Examination: ULTRASOUND SOFT TISSUE HEAD&NECK on 02/07/2023 9:40 AM. CLINICAL HISTORY: Noninvasive follicular thyroid neoplasm withpapillary-like nuclear features status post left thyroid lobectomy on05/13/2022 INDICATION: Follow-up postsurgical changes of the thyroid. COMPARISON: Ultrasound of the neck and thyroid 02/05/2022. PROCEDURE COMMENTS: Real-time ultrasound examination of the neck softtissues was performed. FINDINGS: Right Thyroid Lobe/Bed: The right lobe of the thyroid measures 2.3 x 1.3 x1.4 cm. There are no measurable nodules. No central compartmentadenopathy. Left Thyroid Lobe/Bed: Post lobectomy changes are stable. No adenopathy orsuspicious nodules. Suprasternal and Superior Mediastinal: No recurrence. Right Lateral Neck: No adenopathy. Left Lateral Neck: No adenopathy. Submental to Cricoid: No adenopathy. IMPRESSION: 1. Stable left lobectomy changes with no recurrent tumor. 2. No measurable nodules within the normal-appearing right lobe of thethyroid. 3. No cervical adenopathy. ACTIONABLE ITEMS/RECOMMENDATIONS: None. Sylvia Serrano MD [facility] US ORDERABLES * TSH (02/07/2023 9:03 AM HALL CLEANER) Only the most recent of4 resultswithin the time period is included. Thyroid Stimulating Hormone 2.61 0.27 - 4.20 mcunit/mL 02/07/2023 10:17 AM HALL CLEANER [facility] Blood Venipuncture / Unknown 02/07/2023 9:03 AM HALL CLEANER 02/07/2023 9:06 AM HALL CLEANER Sylvia Serrano MD LAB BLOOD ORDERABLE S Performing Organization Address City/[facility]/ZIP Co de Phone Number [facility] [address] [place] [address]. [address] [place] [address] * Free T4 (02/07/2023 9:03 AM HALL CLEANER) Only the most recent of4 resultswithin the time period is included. T4 (Thyroxine) Free 1.39 0.93 - 1.70 ng/dL 02/07/2023 10:17 AM [facility] Blood Venipuncture / Unknown 02/07/2023 9:03 AM HALL CLEANER 02/07/2023 9:06 AM HALL CLEANER Sylvia Serrano MD LAB BLOOD ORDERABLE S Performing Organization Address City/[facility] Co de Phone Number [facility] [address] [place] [address]. [address] [place] [address] after 06/09/2022 Care Teams Electrician Journeyman Wireman Relationship Specialty Start Date End Date Sylvia Serrano MD [address] [place] [id number] PCP - General Endocrinology 01/27/22 Luisito Dorsey MD [address] [place] [id number] Consulting Physician Head and Neck Surgery 03/16/22 Sergey Garvin MD [facility] [place] [address] Consulting Physician Internal Medicine 05/12/22
[2023-06-10] MEDS ORDERED: FAMOTIDINE 20 MG/2 ML VIAL IV ONE
[2023-06-10] MEDS ORDERED: ONDANSETRON 4 MG/2 ML VIAL ONE
[2023-06-10] MEDS ORDERED: NA CHLORIDE 0.9% 1,000 ML ONE
[2023-06-10] MEDS ORDERED: KETOROLAC 30 MG/ML INJ ONE
[2023-06-10 00:08] LABS: Absolute Eosinophils 0.3 K/uL (0-0.5); Absolute Lymphocytes (CBC) 2.5 K/uL (0.7-4.9); Absolute Monocytes 0.6 K/uL (0.1-1.3); Absolute Neutrophil 3.9 K/uL (1.8-8.0); Basophils % 0.6 % (0-1.3); Hemoglobin 12.5 g/dL (12.0-15.0); Lymphocytes % 33.9 % (15.3-44.8); MCH 29.8 pg (27.0-35.0); MCHC 34.7 g/dL (32.0-36.0); MCV 85.9 fL (80-100); Monocytes % 8.7 % (3.3-12.3); Neutrophils % 52.8 % (41.7-73.7); Nucleated Red Blood Cells % 0.2 % (0-0); Platelets 223 thou/uL (152-406); RBC Red Blood Cell Count 4.19 M/uL (3.86-4.86); Red Cell Distribution Width 13.8 % (12.1-15.2)
[2023-06-10 00:29] LABS: ALT/SGPT 23 U/L (13-56); AST/SGOT 17 U/L (15-37); Albumin 3.3 g/dL (3.4-5.0); Albumin/Globulin Ratio 0.9 (1.1-1.8); Alkaline Phosphatase 80 U/L (45-117); Anion Gap 8.6 mEq/L (5.0-15.0); BUN Blood Urea Nitrogen 25 mg/dL (7-18); Bicarbonate 27 mEq/L (21-32); Bilirubin Total 0.3 mg/dL (0.2-1.0); Globulin 3.8 g/dL (2.3-3.5); Glomerular Filtration Rate 61 ml/min (=/>90); Glucose Level 140 mg/dL (74-106); Lipase 66 U/L (13-75); Potassium 3.6 mEq/L (3.5-5.1); Protein, Total 7.1 g/dL (6.4-8.2); Sodium Level 136 mEq/L (136-145)
[2023-06-10 00:33] LABS: C-Reactive Protein < 2.90 mg/L (<3.00)
[2023-06-10 02:27] LABS: Specific Gravity > 1.030 (1.005-1.030); Sqamous Epithelial <5 /HPF (None Seen); Urine Bacteria None Seen /HPF (<20); Urine Bilirubin NEGATIVE (Negative); Urine Blood Negative (Negative); Urine Clarity Clear (Clear); Urine Color Light-Yellow (Yellow); Urine Culture Reflex Order NOT NEEDED; Urine Glucose NEGATIVE (Negative); Urine Ketones NEGATIVE (Negative); Urine Microscopic Reflex YN ORDER UMIC; Urine Nitrite NEGATIVE (Negative); Urine Protein NEGATIVE (Negative); Urine RBC <5 /HPF (None Seen); Urine Urobilinogen Normal (Normal); Urine WBC <5 /HPF (<5); Urine pH 5.5 (5.0-7.0)
--- NOTE | 2023-06-10 03:35 | EDPHYS ---
Physician Documentation [facility] Name: Indy Khoury Age: 68 yrs Sex: Female : 1955 Arrival Date: 06/09/2023 Time: 23:18 Bed 4 Private MD: ED Physician Cyrus Holly HPI: 06/09 00:05 This 68 yrs old Female presents to ER via Ambulatory with complaints of right sp4 side pain. 06:09 68-year-old female presents with 6 days of right flank pain right abdominal pain. . sp4 Historical: - Allergies: 06/08 23:36 Codeine; tl4 23:36 PENICILLINS; tl4 - Immunization history:: Adult Immunizations unknown. - Infectious Disease History:: Denies. - Social history:: Smoking status: Patient denies any tobacco usage or history of. - Family history:: not pertinent. ROS: 06/09 06:09 Constitutional: Negative for fever, chills, and weight loss, Abdomen/GI: Positive right sp4 flank and the right abdominal pain All other systems are negative, Exam: 06:09 Constitutional: This is a well developed, well nourished patient who is awake, alert, sp4 and in no acute distress. Head/Face: Normocephalic, atraumatic. Eyes: Pupils equal round and reactive to light, extra-ocular motions intact. Lids and lashes normal. Conjunctiva and sclera are not injected. Cornea within normal limits. Periorbital areas with no swelling, redness, or edema. ENT: Nares patent. No nasal discharge, no septal abnormalities noted. Tympanic membranes are normal and external auditory canals are clear. Oropharynx with no redness, swelling, or masses, exudates, or evidence of obstruction, uvula midline. Mucous membranes moist. Neck: Trachea midline, no thyromegaly or masses palpated, and no cervical lymphadenopathy. Supple, full range of motion without nuchal rigidity, or vertebral point tenderness. Chest/axilla: Normal chest wall appearance and motion. Nontender with no deformity. No lesions are appreciated. Cardiovascular: Regular rate and rhythm with a normal S1 and S2. No gallops, murmurs, or rubs. Normal PMI, no JVD. No pulse deficits. Respiratory: Lungs have equal breath sounds bilaterally, clear to auscultation and percussion. No rales, rhonchi or wheezes noted. No increased work of breathing, no retractions or nasal flaring. Abdomen/GI: Soft, with normal bowel sounds. No distension or tympany. No guarding or rebound. No evidence of tenderness throughout. Back: No spinal tenderness. No costovertebral tenderness. Skin: Warm, dry with normal turgor. Normal color with no rashes, no lesions, and no evidence of cellulitis. MS/ Extremity: Pulses equal, no cyanosis. Neurovascular intact. Full, normal range of motion. Neuro: Awake and alert, GCS 15, oriented to person, place, time, and situation. Cranial nerves II-XII grossly intact. Motor strength 5/5 in all extremities. Sensory grossly intact. Psych: Awake, alert, with orientation to person, place and time. Behavior, mood, and affect are within normal limits Vital Signs: 06/08 23:32 BP 146 / 73; Pulse 82; Resp 16; Temp 98(O); Pulse Ox 100% ; Weight 75.3 kg; Height 5 tl4 ft. 5 in. ; Pain 5/10; 06/09 00:37 BP 132 / 76; Pulse 70; Pulse Ox 94% on R/A; tm6 01:57 BP 128 / 61; Pulse 69; Pulse Ox 100% on R/A; tm6 03:02 BP 112 / 52; Pulse 70; Pulse Ox 99% on R/A; tm6 03:38 BP 149 / 75; Pulse 73; Resp 19; Temp 97.1(TE); Pulse Ox 96% on R/A; Pain 0/10; tm6 06/08 23:32 Body Mass Index 27.62 (75.30 kg, 165.1 cm) tl4 06/08 23:32 Pain Scale: Adult tl4 03:38 Pain Scale: Adult tm6 [place] Coma Score: 06:09 Eye Response: spontaneous(4). Motor Response: obeys commands(6). Verbal Response: sp4 oriented(5). Total: 15. MDM: 06/08 23:48 Patient medically screened. sp4 06/09 03:27 ED course: 1. 2.6 x 2.7 x 3.1 cm anteriorly located diverticulum of the descending sp4 segment of the duodenum small focus of irregular enhancement within the lumen or mucosa. Suspicious for possible vascular malformation or bleeding within a duodenal diverticulum. Recommend further characterization by endoscopy, GI bleed protocol CT abdomen pelvis, or gi bleed scintigraphic exam. 2. No other acute findings in the abdomen or pelvis. 3. Hypoattenuating mass measuring 3.3 x 3 x 3.9 cm adjacent to and producing mass effect on the intrahepatic IVC, with small peripheral foci of internal enhancement. This appears increased in size compared to 2015 exam. Given appearance and chronicity, finding is most compatible with intrahepatic hemangioma. No dedicated imaging follow-up recommended in the absence of symptoms (such as IVC obstruction). 4. Nonacute findings as above. Electronically signed by: Tesfaye Calvin MD 06/10/2023 02:50 AM CD. 06:09 Differential Diagnosis altered mental status, sepsis, flu, Renal stone. Data reviewed: sp4 vital signs, nurses notes, lab test result(s), radiologic studies, CT scan. Consideration of Admission/Observation Escalation of care including admission/observation considered. ED course: It has improved after the medications. Patient was advised to see her boat driver for duodenal diverticulum. Patient was advised to have consultation with boat driver for endoscopy within the next 2-4 weeks . No other acute findings in abdomen and pelvis by CT.. Finding of mildly increased but chronic hypoattenuating mass in the liver with some compressive effect on inferior vena cava. Will advise patient see her primary care physician for further assessment of this mass. . 06/08 23:48 Order name: CBC with Diff; Complete Time: 02:34 sp4 06/08 23:48 Order name: CMP; Complete Time: 02:34 sp4 06/08 23:48 Order name: Lipase; Complete Time: 02:34 sp4 06/08 23:48 Order name: Urinalysis w/ reflexes; Complete Time: 02:34 sp4 06/09 00:15 Order name: C-Reactive Protein; Complete Time: 02:34 EDNY 06/08 23:48 Order name: CT Abd/Pelvis - IV Contrast Only sp4 06/08 23:48 Order name: IV Saline Lock; Complete Time: 00:07 sp4 06/08 23:48 Order name: Labs collected and sent; Complete Time: 00:07 sp4 Administered Medications: 00:08 Drug: TORadol - Ketorolac IVP 15 mg IVP once Route: IVP; Site: right antecubital; ha1 00:30 Follow up: Response: Marked relief of symptoms; Pain is decreased ha1 00:10 Drug: Ondansetron IVP 4 mg IVP once; over 2 minutes Route: IVP; Site: right antecubital;ha1 00:30 Follow up: Response: No adverse reaction; Marked relief of symptoms; Nausea is decreasedha1 00:11 Drug: Famotidine IVP 20 mg IVP once; dilute with 10 mL 0.9% NaCl; give over 2 minutes ha1 Route: IVP; Site: right antecubital; 00:30 Follow up: Response: No adverse reaction; Marked relief of symptoms ha1 00:12 Drug: NS 0.9% IV 1000 ml IV at 1 bolus Per protocol; 1000 mL bolus Route: IV; Rate: 1 ha1 bolus; Site: right antecubital; 02:43 Follow up: Response: No adverse reaction; IV Status: Completed infusion; IV Intake: ha1 1000ml Disposition Summary: 06/10/23 03:34 Discharge Ordered Notes: Location: Home sp4 Problem: new sp4 Symptoms: have improved sp4 Condition: Stable sp4 Diagnosis - Lower abdominal pain, unspecified sp4 - Duodenal diverticulum, hepatic hemangioma sp4 Followup: sp4 - With: Malick Estrella MD - When: 7 - 10 days - Reason: Recheck today's complaints Discharge Instructions: - Discharge Summary Sheet sp4 - Abdominal Pain, Adult, [id number] sp4 Forms: - Patient Portal Instructions sp4 Prescriptions: - promethazine 25 mg Oral tablet - take 1 tablet ORAL route every 6 hours As needed PRN nausea; 30 tablet; sp4 Refills: 0, Product Selection Permitted - dicyclomine 20 mg Oral tablet - take 1 tablet ORAL route every 6 hours PRN abdominal pain; 30 tablet; sp4 Refills: 0, Product Selection Permitted Signatures: Dispatcher [employer] Anjana Alvarez RN RN [email or web address] Cyrus Holly MD MD sp4 Donald Rosales RN RN tl4 Corrections: (The following items were deleted from the chart) 06/08 23:48 23:48 CBC+H.LAB.BRZ ordered. EDMS EDMS 23:48 23:48 COMPREHENSIVE METABOLIC PANEL+C.LAB.BRZ ordered. EDMS EDMS 23:48 23:48 LIPASE+C.LAB.BRZ ordered. EDMS EDMS 23:48 23:48 Urinalysis+U.LAB.BRZ ordered. EDMS EDMS 06/09 00:16 00:04 C-REACTIVE PROTEIN+C.LAB.BRZ ordered. EDMS EDMS
--- NOTE | 2023-06-10 03:35 | ER ---
Nurse's Notes [facility] Name: Indy Khoury Age: 68 yrs Sex: Female : 1955 Arrival Date: 06/09/2023 Time: 23:18 Bed 4 Private MD: Diagnosis: Lower abdominal pain, unspecified;Duodenal diverticulum, hepatic hemangioma Presentation: 06/08 23:32 Chief complaint: Patient states: Pt c/o right lower quadrant pain, nausea, and lack of tl4 appetite since last Tuesday. Pt states diarrhea today. Pt diagnosed with diverticulitis and is taking abx currently. Pt denies fever/chills. Coronavirus screen: At this time, the client does not indicate any symptoms associated with coronavirus-19. Ebola Screen: No symptoms or risks identified at this time. Initial Sepsis Screen: Does the patient meet any 2 criteria? No. Patient's initial sepsis screen is negative. Does the patient have a suspected source of infection? No. Patient's initial sepsis screen is negative. Risk Assessment: Do you want to hurt yourself or someone else? Patient reports no desire to harm self or others. Onset of symptoms was June 03, 2023. 23:32 Method Of Arrival: Ambulatory tl4 23:32 Acuity: ELIGIO 3 tl4 Triage Assessment: 23:36 General: Appears in no apparent distress. Behavior is calm, cooperative. Pain: tl4 Complains of pain in abdomen. EENT: No signs and/or symptoms were reported regarding the EENT system. Neuro: Level of Consciousness is awake, alert, obeys commands, Oriented to person, place, time, situation, Moves all extremities. Gait is steady. Cardiovascular: Capillary refill < 3 seconds Patient's skin is warm and dry. Respiratory: Airway is patent Respiratory effort is even, unlabored, Respiratory pattern is regular, symmetrical. GI: Reports upper abdominal pain, diarrhea, nausea. : No signs and/or symptoms were reported regarding the genitourinary system. Derm: No signs and/or symptoms reported regarding the dermatologic system. Musculoskeletal: No signs and/or symptoms reported regarding the musculoskeletal system. Historical: - Allergies: 23:36 Codeine; tl4 23:36 PENICILLINS; tl4 - Immunization history:: Adult Immunizations unknown. - Infectious Disease History:: Denies. - Social history:: Smoking status: Patient denies any tobacco usage or history of. - Family history:: not pertinent. Screenin:45 [facility] ED Fall Risk Assessment (Adult) History of falling in the last 3 months, tm6 including since admission No falls in past 3 months (0 pts) Confusion or Disorientation No (0 pts) Intoxicated or Sedated No (0 pts) Impaired Gait No (0 pts) Mobility Assist Device Used No (0 pt) Altered Elimination No (0 pt) Score/Fall Risk Level 0 - 2 = Low Risk Oriented to surroundings, Maintained a safe environment. Abuse screen: Denies threats or abuse. Denies injuries from another. Nutritional screening: No deficits noted. Tuberculosis screening: No symptoms or risk factors identified. Assessment: 23:45 General: Appears uncomfortable, Behavior is calm, cooperative. Pain: Complains of pain tm6 in right upper quadrant Pain currently is 5 out of 10 on a pain scale. Quality of pain is described as aching, dull, Pain began one week ago Also complains of decreased appetite, nausea. Neuro: Level of Consciousness is awake, alert, obeys commands, Oriented to person, place, time, situation. Cardiovascular: Patient's skin is warm and dry. Respiratory: Airway is patent Respiratory effort is even, unlabored, Respiratory pattern is regular, symmetrical. GI: Abdomen is flat, non-distended, Abd is soft and non tender X 4 quads. Reports upper abdominal pain, anorexia, diarrhea, nausea. : No signs and/or symptoms were reported regarding the genitourinary system. EENT: No signs and/or symptoms were reported regarding the EENT system. Derm: No signs and/or symptoms reported regarding the dermatologic system. Musculoskeletal: No signs and/or symptoms reported regarding the musculoskeletal system. 06/09 00:38 Reassessment: Patient and/or family updated on plan of care and expected duration. Pain tm6 level reassessed. Patient is alert, oriented x 3, equal unlabored respirations, skin warm/dry/pink. 02:01 Reassessment: Patient appears in no apparent distress at this time. Patient and/or tm6 family updated on plan of care and expected duration. Pain level reassessed. Patient is alert, oriented x 3, equal unlabored respirations, skin warm/dry/pink. 03:02 Reassessment: No changes from previously documented assessment. tm6 03:02 Reassessment: Patient states feeling better. tm6 03:42 Reassessment: Patient appears in no apparent distress at this time. Patient and/or tm6 family updated on plan of care and expected duration. Pain level reassessed. Patient is alert, oriented x 3, equal unlabored respirations, skin warm/dry/pink. Patient states feeling better. Vital Signs: 06/08 23:32 BP 146 / 73; Pulse 82; Resp 16; Temp 98(O); Pulse Ox 100% ; Weight 75.3 kg; Height 5 tl4 ft. 5 in. ; Pain 5/10; 06/09 00:37 BP 132 / 76; Pulse 70; Pulse Ox 94% on R/A; tm6 01:57 BP 128 / 61; Pulse 69; Pulse Ox 100% on R/A; tm6 03:02 BP 112 / 52; Pulse 70; Pulse Ox 99% on R/A; tm6 03:38 BP 149 / 75; Pulse 73; Resp 19; Temp 97.1(TE); Pulse Ox 96% on R/A; Pain 0/10; tm6 06/08 23:32 Body Mass Index 27.62 (75.30 kg, 165.1 cm) tl4 06/08 23:32 Pain Scale: Adult tl4 03:38 Pain Scale: Adult tm6 Tam Coma Score: 06:09 Eye Response: spontaneous(4). Motor Response: obeys commands(6). Verbal Response: sp4 oriented(5). Total: 15. ED Course: 06/08 23:23 Patient arrived in ED. ra3 23:36 Triage completed. tl4 23:37 Arm band placed on left wrist. tl4 23:45 Marissa Nogueira, RN is Primary Nurse. tm6 23:45 Patient has correct armband on for positive identification. Placed in gown. Bed in low tm6 position. Call light in reach. Side rails up X2. Provided Education on: plan of care. Client placed on continuous cardiac and pulse oximetry monitoring. NIBP monitoring applied. Pulse ox on. NIBP on. Door closed. Noise minimized. Lights dimmed. Warm blanket given. 23:47 Cyrus Holly MD is Attending Physician. sp4 06/09 00:13 CBC with Diff Sent. ha1 00:13 CMP Sent. ha1 00:13 Lipase Sent. ha1 01:06 CT Abd/Pelvis - IV Contrast Only In Process Unspecified. EDMS 03:01 Warm blanket given. tm6 03:34 Malick Estrella MD is Referral Physician. sp4 03:42 No provider procedures requiring assistance completed. IV discontinued, intact, tm6 bleeding controlled, No redness/swelling at site. Pressure dressing applied. Administered Medications: 00:08 Drug: TORadol - Ketorolac IVP 15 mg IVP once Route: IVP; Site: right antecubital; ha1 00:30 Follow up: Response: Marked relief of symptoms; Pain is decreased ha1 00:10 Drug: Ondansetron IVP 4 mg IVP once; over 2 minutes Route: IVP; Site: right antecubital;ha1 00:30 Follow up: Response: No adverse reaction; Marked relief of symptoms; Nausea is decreasedha1 00:11 Drug: Famotidine IVP 20 mg IVP once; dilute with 10 mL 0.9% NaCl; give over 2 minutes ha1 Route: IVP; Site: right antecubital; 00:30 Follow up: Response: No adverse reaction; Marked relief of symptoms ha1 00:12 Drug: NS 0.9% IV 1000 ml IV at 1 bolus Per protocol; 1000 mL bolus Route: IV; Rate: 1 ha1 bolus; Site: right antecubital; 02:43 Follow up: Response: No adverse reaction; IV Status: Completed infusion; IV Intake: ha1 1000ml Medication: 04 23:45 VIS not applicable for this client. tm6 Intake: 0412 02:43 IV: 1000ml; Total: 1000ml. ha1 Outcome: 03:34 Discharge ordered by . sp4 03:42 Discharged to home ambulatory, tm6 03:42 Condition: stable 03:42 Discharge instructions given to patient, family, Instructed on discharge instructions, follow up and referral plans. medication usage, Demonstrated understanding of instructions, follow-up care, medications, Prescriptions given X 2, 03:42 Patient left the ED. tm6 Signatures: Dispatcher [employer] EDTX Anjana Gatica RN RN ha1 Cyrus Holly MD MD sp4 Marissa Nogueira RN RN tm6 Donald Rosales RN RN tl4 Aixa Multani ra3 Corrections: (The following items were deleted from the chart) 00:16 00:13 C-REACTIVE PROTEIN+C.LAB.BRZ drawn and sent. ha1 EDMS
[2023-06-10 09:57] VITALS: BP 149/75; TEMP 97.1; O2SAT 96
--- NOTE | 2023-06-13 20:10 | RAD REPORT ---
EXAM DESCRIPTION: CT - Abdomen Pelvis W Contrast - 06/10/2023 6:42 am CLINICAL HISTORY: The patient is 68 years old and is Female; right sided abd pain IV ONLY Bed N tyra: 4 TECHNIQUE: Axial computed tomography images of the abdomen and pelvis with intravenous contrast. S agittal and coronal reformatted images were created and reviewed. This CT exam was performed using one or more of the following dose reduction techniques: automated exposure control, adjustment of t he mA and/or kV according to patient size, and/or use of iterative reconstruction technique. COMPARISON: 06/25/[address] abdomen pelvis (no report available for review) FINDINGS: LUNG BASES: Unremarkable No mass. No consolidation. MEDIASTINUM: Small hiatal hernia. ABDOMEN: LIVER: Hypoattenuating mass measuring 3.3 x 3 x 3.9 cm adjacent to and producing mass effect on the intrahepatic IVC, with small peripheral foci of internal enhancement. This appears increased in size compared to 2015 exam. Given appearance and chronicity, finding is most compatible with intrahepatic hemangioma. Stable appearance of too small to characterize hypoattenuating focus in the anterior left hepatic lob e, suspicious for the same. GALLBLADDER AND BILE DUCTS: Cholecystectomy clips noted in the gallbladder fossa. No greater than e xpected ductal dilatation. PANCREAS: Unremarkable No mass. No ductal dilation. SPLEEN: Unremarkable No splenomegaly. ADRENALS: Unremarkable No mass. KIDNEYS AND URETERS: Unremarkable No solid mass. No hydronephrosis. STOMACH AND BOWEL: 2.6 x 2.7 x 3.1 cm anteriorly located diverticulum of the descending segment of the duodenum with intraluminal 1.1 cm long, 0.65 cm diameter homogenously dense, ovoid or pill-shaped foreign body. Immediately adjacent is a small focus of irregular enhancement within or immediately a djacent to the diverticular mucosa. Suspicious for possible vascular malformation or bleeding within a duodenal diverticulum. The colon and remainder of the small bowel appear unremarkable. No evidence of small or large bowel obstruction. PELVIS: APPENDIX: No findings to suggest acute appendicitis. BLADDER: Unremarkable No mass. REPRODUCTIVE: Presumed hysterectomy. ABDOMEN and PELVIS: INTRAPERITONEAL SPACE: Unremarkable No free air. No significant fluid collection. BONES/JOINTS: No acute fracture. No dislocation. SOFT TISSUES: Partially visualized bilateral saline breast implants. VASCULATURE: Mild calcified atherosclerosis of the abdominal aorta without aneurysmal dilatation. LYMPH NODES: Unremarkable No enlarged lymph nodes. IMPRESSION: 1. 2.6 x 2.7 x 3.1 cm anteriorly located diverticulum of the descending segment of the duodenum small focus of irregular enhancement within the lumen or mucosa. Suspicious for possible va scular malformation or bleeding within a duodenal diverticulum. Recommend further characterization by endoscopy, GI bleed protocol CT abdomen pelvis, or gi bleed scintigraphic exam. 2. No other acute findings in the abdomen or pelvis. 3. Hypoattenuating mass measuring 3.3 x 3 x 3.9 cm adjacent to and producing mass effect on the int rahepatic IVC, with small peripheral foci of internal enhancement. This appears increased in size com pared to 2015 exam. Given appearance and chronicity, finding is most compatible with intrahepatic hem angioma. No dedicated imaging follow-up recommended in the absence of symptoms (such as IVC obstructi on). 4. Nonacute findings as above. Electronically signed by: Tesfaye Calvin MD 06/10/2023 02:50 AM CDT Due to temporary technical issues with the PACS/Fluency reporting system, reports are being signed by the in house radiologists without review as a courtesy to insure prompt reporting. The interpreting radiologist is fully responsible for the content of the report.
== END 2023-06-10 03:42 | disposition home or self-care (01) ==
LOC: ER 23:18
DX: K57.10 Diverticulosis of small intestine without perforation or abscess without bleeding (principal); D18.03 Hemangioma of intra-abdominal structures; Z88.0 Allergy status to penicillin; Z88.5 Allergy status to narcotic agent
CPT/HCPCS: 96361; 85025; 81001; 36415; 83690; 80053; 86140; 74177; 96375; 96374; 99284; Q9967; J2405; J7030